=== PATIENT | female | born 1950 | race African-American/Black ===

== ENCOUNTER 2018-12-22 14:17 | Inpatient (IN) | payer OTHER ==
--- NOTE | 2018-12-22 14:38 | R.PREADM ---
SCREENING DATE AND TIME 12/21/2018 14:25 (SULFUR CHLORIDE OPERATOR) ANTICIPATED REHAB ADMISSION DATE 12/23/2018 REFERRING FACILITY [facility] REFERRAL DATE AND TIME 12/21/2018 14:25 (SULFUR CHLORIDE OPERATOR) ACUTE ADMIT DATE 12/19/2018 Previous Rehabilitation(s): No. REFERRING PHYSICIAN David Christine REHAB FACILITY [facility] CLINICAL LIAISON Freddie Lance PHYSICIAN REVIEWER Dr. Jesse Martinez M.D. MR# [id number] [facility]# [id number] NAME GRCAIE VALADEZ AD[address]ESS [address] [facility] [address] DATE OF 1950 AGE 68 SSN# [id number] GENDER female MARITAL STATUS RACE black ADMIT FROM 02 - [facility] PRE-HOSPITAL LIVING SETTING 01 - Home (private home/apt. board/care, assisted living, retirement, transitional living) HOME TYPE AND DETAILS Type of home: single family house # of levels in the residence: 1 # of steps to enter the residence: 0 # of steps within the residence: 0 PRE-HOSPITAL LIVING WITH Family/Relatives FAMILY SUPPORT Yes PRIMARY FAMILY CONTACT NAME Yvette Valadez PRIMARY FAMILY CONTACT PHONE PRIMARY FAMILY CONTACT RELATIONSHIP Daughter PHONE PRIMARY FAMILY CONTACT ON ADM.? no IS PRIMARY FAMILY CONTACT AUTH. REP.? no 1ST EMERGENCY CONTACT Yvette Valadez 1ST CONTACT PHONE 1ST CONTACT RELATIONSHIP Daughter PHONE 1ST CONTACT ON ADM. no IS 1ST CONTACT AUTH. REP.? no PHONE 2ND CONTACT ON ADM.? no PATIENT EMPLOYMENT STATUS Retired (for age) PATIENT EMPLOYER No Employer PAYOR INFORMATION: 1ST PAYOR NAME MEDICARE 1ST PAYOR PHONE [phone] 1ST PAYOR INJURY/ILLNESS DUE TO ACCIDENT? No ANOTHER CONSTITUTION PARTY RESPONSIBLE? 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 is a 68 yo Right-handed black female. On 12/19/2018 Pt. presented to [facility] with sudden onset of left-side weakness. On 12/19/2018 she was admitted to [facility] with diagnosis Acute to subacute infarct Right Lenti form Nucleus and Adjacent Caudate. Her impairment category is Stroke 01 - Left Body (Right Brain) (01.1). Pre-morbidly, Pt. was independent/mod-I in Locomotion, Safety Awareness, Balance, Social Cognition, T ransfers Control, Sphincter Control, Self-Care, and Endurance; and she had good Balance, Endurance, L ocomotion, Transfers Control, Communication, and Social Cognition. Currently, she has deficits of Locomotion, Safety Awareness, Balance, Transfers Control, Self-Care, a nd Communication. Pt. is now referred to [facility] for acute in-patient rehabilitation in order to maximize patient's functional independence in activities of daily living, strength, ROM, and mobi lity. Patient has realistic goal of being discharged at assistance level 6-Erica to reside at Home with Fam elis/Relatives. Gracie Valadez is a 68 year old female that lives with her sister in a 1 [address] home. She was independent with ADLs and self care. On 12/19/2018, patient had a fall and was found on the ground by her daughter. Patient was feeling some weakness on her left side and stated she was having difficulty moving it but refused to go to the hospital. The next day her symptoms lingered and was admitted to [facility] and treated. She is now medically stable but in need of 24-hour nursing, doctor supervision and oversite while receivi ng active and ongoing intensive (PT, reasonably expected to participate in 3hours of therapy a day/15 hours per week and receive care with an intensive interdisciplinary approach. PAST MEDICAL HISTORY HTN History of Stroke DM II PAST SURGICAL HISTORY: N/A MEDICATION ALLERGIES: No Known Drug Allergies (NKDA) ENVIRONMENTAL ALLERGIES: None Known - Substance Allergies None Known - Other Allergies None Known CODE STATUS: Full code WEIGHT/HEIGHT/BMI: WEIGHT 180 lbs HEIGHT 5' 5" BMI 30 DIET: - Diet Type Regular - Diet - Solid Texture Pureed - Diet - Liquid Texture Thin - Tube Feed N/A REVIEW OF SYSTEMS: - Gen Alert and awake Lying in bed No apparent distress Oriented to: person, time, and place - Vital Signs Temperature: 97.7 F SBP/DBP: 149/70 Pulse: 77 Resp: 16 Vital signs stable, afebrile - CVS RRR VITAL SIGNS Temperature: 97.7 F SBP/DBP: 149/70 Pulse: 77 Resp: 16 Vital signs stable, afebrile MEDICATIONS/TREATMENT: Other- See attached MAR (Medication Administration Record) [email or web address].pdf. CURRENT SPHINCTER CONTROL: Pre-hospital bladder status: continent # of bladder accidents in the last 7 days prior to screenin Pre-hospital bowel status: continent # of bowel accidents in the last 7 days prior to screenin Last Bowel Movement Date: CURRENT LOCOMOTION STATUS: distance walked 20 feet DETAILED CURRENT FUNCTIONAL STATUS: - Bladder accident frequency: Ind - No accidents in the past 7 days - Bowel accident frequency: Ind - No accidents in the past 7 days - Walking score based on distance walked: 1(<=50ft) - Wheelchair score based on distance traveled: 0(N/A) QI SCORES: - Self-Care A. Eating 03-Partial/moderate assistance B. Oral hygiene 03-Partial/moderate assistance C. Toileting hygiene 03-Partial/moderate assistance E. Shower/bathe self 03-Partial/moderate assistance F. Upper body dressing 03-Partial/moderate assistance G. Lower body dressing 03-Partial/moderate assistance H. Putting on/taking off footwear 02-Substantial/maximal assistance - Mobility A. Roll left and right 03-Partial/moderate assistance B. Sit to lying 03-Partial/moderate assistance C. Lying to sitting on side of bed 03-Partial/moderate assistance D. Sit to stand 04-Supervision or touching assistance E. Chair/caq-it-fhsgj transfer 04-Supervision or touching assistance F. Toilet transfer 03-Partial/moderate assistance G. Car transfer 88-Not attempted due to medical condition or safety concerns I. Walk 10 feet 04-Supervision or touching assistance J. Walk 50 feet with two turns 88-Not attempted due to medical condition or safety concerns K. Walk 150 feet 88-Not attempted due to medical condition or safety concerns L. Walking 10 feet on uneven surfaces 88-Not attempted due to medical condition or safety concerns M. 1 step (curb) 88-Not attempted due to medical condition or safety concerns N. 4 steps 88-Not attempted due to medical condition or safety concerns O. 12 steps 88-Not attempted due to medical condition or safety concerns P. Picking up object 88-Not attempted due to medical condition or safety concerns R. Wheel 50 feet with two turns 88-Not attempted due to medical condition or safety concerns S. Wheel 150 feet 88-Not attempted due to medical condition or safety concerns - Bladder and Bowel Bladder continence 0-Always continent Bowel continence 0-Always continent - Endurance Fair - Balance Fair - Safety Awareness Fair CURRENT FUNC. DEFICITS: Self-Care, Mobility, Endurance, Balance, and Safety Awareness CURRENT / PREVIOUS ASSISTIVE DEVICES: 3-in-1 Commode BSC Dentures Glasses Hospital Bed Raised Toilet Rolling Walker Shower Chair Standard Walker Tub Bench Wheelchair CURRENT USE ASSISTIVE DEVICES: TEDs HISTORY OF FALLS. HAS THE PATIENT HAD TWO OR MORE FALLS IN THE PAST YEAR OR ANY FALL WITH INJURY IN T HE PAST YEAR?: Yes PRIOR SURGERY. DID THE PATIENT HAVE MAJOR SURGERY DURING THE 100 DAYS PRIOR TO ADMISSION?: No THERAPY NOTES FROM ACUTE CARE: Attached. SPECIAL NEEDS: - Safety Concerns Skin breakdown precautions needed due to skin breakdown risk PRECAUTIONS: - Weight Bearing Precaution WBAT left LE PATIENT NEEDS ACTIVE AND ONGOING THERAPEUTIC INTERVENTION OF MULTIPLE THERAPY DISCIPLINES, INCLUDING: - Occupational Therapy Cognitive Retraining. Visual Perceptual Training. - Dietary and Nutrition Adequate Nutrition. Nutritional Education. Nutritional Supplements. - Speech Therapy Cognitive Training. Dysphagia Therapy. Expressive Language Skills. Memory Strategies. Receptive Langu age Skills. Speech Intelligibility Training. PATIENT NEEDS CLOSE MEDICAL SUPERVISION BY A REHABILITATION PHYSICIAN FOR: Coordination of Treatment Team Medical and Co-Morbidity Management PATIENT REQUIRES 24X7 REHAB NURSING FOR MEDICAL AND FUNCTIONAL MGT. OF THE FOLLOWING DEFICITS: Disease Management Medication Management Patient/Family Education Providing Safe Environment PATIENT REQUIRES INTENSIVE, COORDINATED INTERDISCIPLINARY APPROACH TO REHAB: Arranging Home Equipment/Services Discharge Planning Family Intervention/Training Biomedical Engineering Technician/Case Management PATIENT REHAB POTENTIAL: Adeola VALAEDZ is able and expected to receive 3 hours of individualized therapy daily on at least 5 of ever y 7 days Adeola VALADEZ's prognosis for significant practical improvement within a reasonable period of time appears Good Expected level of measurable improvement will be of a practical value to Adeola VALADEZ's functional capacit y or adaptations to impairments Has a viable Discharge Plan Medically appropriate; condition is sufficiently stable to participate in intensive rehab program DISCHARGE PLAN: - Estimated Length of Stay (days) 17. - Consensus on plan Discharge plan has been discussed with primary caregiver. Patient/Family is in agreement with the ciarra n. Primary caregiver is in agreement with the plan. - Patient/Family Goals Return home with assistance. - Planned Living Setting Upon Discharge Home, to live with Family/Relatives. Transitional Living. RECOMMENDED CARE LEVEL: IRF RECOMMENDATION DETAILS: Recommended Admission to Comprehensive Rehabilitation Program to Increase Functional [place] SCREENER'S COMPLETENESS CONFIRMATION: - Screening Confirmation The patient data collection on this preadmission screening form is finished PHYSICIANS REVIEW AND ADMISSION DETERMINATION Admit - Based on my review of the Pre-Admission Screening results, in my medical judgment and experie nce, I concur with the findings and recommend admission to [facility], as this patient requires an IRF level of care. SIGNATURE PANEL: Clinical Liaison - [electronically] signed by Freddie Lance on 12/22/2018 at 14:29 (SULFUR CHLORIDE OPERATOR) Physician Reviewer - [electronically] signed by Dr. Jesse Martinez M.D. on 12/22/2018 at 14:38 (SULFUR CHLORIDE OPERATOR )
--- OUTSIDE RECORDS SUMMARY | 2018-12-22 20:20 | XMS REPORT ---
:1950 [facility] Address [address] [place] [id number] Care Team Providers Name Role Phone Unavailable Unavailable Unavailable Problems This patient has no known problems. Allergies, Adverse Reactions, Alerts This patient has no known allergies or adverse reactions. Medications This patient has no known medications.
[2018-12-22] MEDS ORDERED: ALBUTEROL INHALER 60 PUFF/8 GM IH PRN (21:15)
[2018-12-22] MEDS ORDERED: BENZONATATE 100 MG CAP PO PRN (21:18)
[2018-12-22] MEDS ORDERED: LORATADINE 10 MG TAB PO PRN (21:25)
[2018-12-22] MEDS ORDERED: MECLIZINE HCL 12.5 MG TAB PO PRN (21:26)
[2018-12-22] MEDS ORDERED: TRAMADOL HCL 50 MG TAB PO PRN (21:33)
[2018-12-22] MEDS: CEPHALEXIN 250 MG CAP PO SCH (23:55)
[2018-12-23] MEDS ORDERED: GLUCAGON 1 MG/VIAL IM PRN (00:29)
[2018-12-23] MEDS ORDERED: D50W 25 GM/50 ML SYRINGE/VIAL IV PRN (00:29)
[2018-12-23] MEDS: INSULIN -REGULAR HUMAN 50 UNIT/0.5 ML ML SQ SCH ×4 (06:45→19:51)
[2018-12-23 06:51] LABS: Albumin 3.2 g/dL (3.4-5.0); Magnesium 1.9 mg/dL (1.8-2.4); Potassium 3.1 mmol/L (3.5-5.1); Prealbumin 13.8 mg/dL (20-40)
[2018-12-23 06:55] LABS: Absolute Lymphocytes (CBC) 1.1 K/uL (0.7-4.9); Basophils % 0.8 % (0-1.3); Hematocrit 35.9 % (36.0-45.0); Lymphocytes % 13.5 % (15.3-44.8); MPV 9.6 fL (7.6-11.3); RBC Red Blood Cell Count 4.33 M/uL (3.86-4.86)
[2018-12-23] MEDS: CYCLOBENZAPRINE 10 MG TAB PO SCH ×3 (08:03→18:43)
[2018-12-23] MEDS: DIPYRIDAMOLE/ASPIRIN CAP ER PO SCH ×2 (08:03→18:43)
[2018-12-23] MEDS: LOSARTAN POTASSIUM 50 MG TABLET PO SCH (08:03)
[2018-12-23] MEDS: METOPROLOL TAR 50 MG TAB PO SCH (08:05)
[2018-12-23] MEDS: hydroCHLOROthiazide 12.5 MG CAP PO SCH (08:05)
[2018-12-23] MEDS: CEPHALEXIN 250 MG CAP PO SCH ×3 (08:06→18:44)
[2018-12-23] MEDS: NAPROXEN 250 MG TAB PO SCH ×2 (08:06→18:43)
[2018-12-23] MEDS: AMLODIPINE 5 MG TAB PO SCH (08:06)
[2018-12-23] MEDS ORDERED: APP TOP SCH (09:00)
[2018-12-23] MEDS ORDERED: POTASSIUM 25 MEQ EFFERV TAB PO ONE (12:01)
[2018-12-23 16:02] LABS: Urine Appearance CLEAR; Urine Bilirubin NEGATIVE (NEG); Urine Blood 2+ (NEG); Urine Color YELLOW; Urine Glucose NEGATIVE (NEG); Urine Specific Gravity 1.025 (1.005-1.030)
[2018-12-23 16:03] LABS: Urine Protein TRACE (NEG); Urine Urobilinogen 0.2 mg/dL (0.2-1.0); Urine pH 5.5 (5.0-7.0)
[2018-12-23 16:04] LABS: Calcium Oxalate Crystals- Ur MANY (NONE SEEN); Urine Bacteria <20 /HPF (<20); Urine Culture Reflex Order NOT NEEDED; Urine RBC <5 /HPF (NONE SEEN)
--- NOTE | 2018-12-23 18:01 | R.HP ---
FACILITY: [facility] ENCOUNTER DATE AND TIME: 12/23/2018 14:35 (SUPERVISOR LABORATORY ANIMAL FACILITY) MR#: [id number] NAME GRACIE VALADEZ ADDRESS: [address] [place] [address] [address] PHONE: DATE OF : 1950 AGE: 68 SSN# [id number] GENDER: Female DEXTERITY Right-handed MARITAL STATUS RACE Black PRE-HOSPITAL LIVING SETTING 01 - Home (private home/apt. board/care, assisted living, mcc, transitional living) PRE-HOSPITAL LIVING WITH Family/Relatives ENCOUNTER PHYSICIAN: Dr. Jesse Martinez M.D. 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 is a 68 yo Right-handed black female. On 12/19/2018 Pt. presented to [facility] with sudden onset of left-side weakness. On 12/19/2018 she was admitted to [facility] with diagnosis Acute to subacute infarct Right Lenti form Nucleus and Adjacent Caudate. Her impairment category is Stroke 01 - Left Body (Right Brain) (01.1). Pre-morbidly, Pt. was independent/mod-I in Locomotion, Safety Awareness, Balance, Social Cognition, T ransfers Control, Sphincter Control, Self-Care, and Endurance; and she had good Balance, Endurance, L ocomotion, Transfers Control, Communication, and Social Cognition. Currently, she has deficits of Locomotion, Safety Awareness, Balance, Transfers Control, Self-Care, a nd Communication. Pt. is now referred to [facility] for acute in-patient rehabilitation in order to maximize patient's functional independence in activities of daily living, strength, ROM, and mobi lity. Patient has realistic goal of being discharged at assistance level 6-Erica to reside at Home with Fam elis/Relatives. Gracie Valadez is a 68 year old female that lives with her sister in a [address] home. She was independent with ADLs and self care. On 12/19/2018, patient had a fall and was found on the ground by her daughter. Patient was feeling some weakness on her left side and stated she was having difficulty moving it but refused to go to the hospital. The next day her symptoms lingered and was admitted to [facility] and treated. She is now medically stable but in need of 24-hour nursing, doctor supervision and oversite while receivi ng active and ongoing intensive (PT, reasonably expected to participate in 3hours of therapy a day/15 hours per week and receive care with an intensive interdisciplinary approach. MEDICATION ALLERGIES: No Known Drug Allergies (NKDA) ENVIRONMENTAL ALLERGIES: None Known - Substance Allergies None Known - Other Allergies None Known PAST MEDICAL HISTORY: HTN History of Stroke DM II PAST SURGICAL HISTORY: N/A FAMILY HISTORY: Family history is not contributory. SOCIAL HISTORY: - Home Living Family/Relatives REVIEW OF SYSTEMS: - Gen No Chills Fatigue No Fever - Eyes No Double Vision No itchiness - ENMT Difficulty Swallowing - CVS No Chest Discomfort No Chest Pain Fatigue No Weight Gain - Resp No Cough No Shortness of Breath - GI Continent No Abdominal Pain No Constipation No Diarrhea - Continent No Kidney Pain No Painful Urination No Urinary Urgency - MSK No Joint Pain Muscle Cramps Stiffness - Skin No Itching No Rash No Suspicious Lesions - Neuro Coordination Difficulty Difficulty with Concentration No Memory Loss No Seizures Weakness - Psych No Anxiety No Depression No HIV Exposure No Persistent Infections No Seasonal Allergies - Endo No Cold/Heat Intolerance No Excessive Hunger No Excessive Thirst No Excessive Urination PHYSICAL EXAM - Gen Alert and awake Lying in bed No apparent distress Oriented to: person, time, and place - Skin No skin breakdown. Normacephalic - Eyes No abnormalities - ENMT No abnormalities - Neck No abnormalities - CVS RRR - Chest Clear - Resp No wheezing - Abd + bowel sounds - GI Non distended Deferred - No abnormalities - Ext No significant edema - MSK 3+/5 weakness in left upper and 4+/5 in left lower extremity - Neuro 3+/5 weakness in left upper and 4+/5 in left lower extremity - Psych No abnormalities VITAL SIGNS Temperature: 97.7 F SBP/DBP: 149/70 Pulse: 77 Resp: 16 NURSING: - Shower allowing shower - Bladder care per protocol - Skin care per protocol PRECAUTIONS: - Weight Bearing Precaution WBAT left LE ACTIVITIES OOB only with supervision QI SCORES: - Self-Care A. Eating 03-Partial/moderate assistance B. Oral hygiene 03-Partial/moderate assistance C. Toileting hygiene 03-Partial/moderate assistance E. Shower/bathe self 03-Partial/moderate assistance F. Upper body dressing 03-Partial/moderate assistance G. Lower body dressing 03-Partial/moderate assistance H. Putting on/taking off footwear 02-Substantial/maximal assistance - Mobility A. Roll left and right 03-Partial/moderate assistance B. Sit to lying 03-Partial/moderate assistance C. Lying to sitting on side of bed 03-Partial/moderate assistance D. Sit to stand 04-Supervision or touching assistance E. Chair/dno-pz-fleym transfer 04-Supervision or touching assistance F. Toilet transfer 03-Partial/moderate assistance G. Car transfer 88-Not attempted due to medical condition or safety concerns I. Walk 10 feet 04-Supervision or touching assistance J. Walk 50 feet with two turns 88-Not attempted due to medical condition or safety concerns K. Walk 150 feet 88-Not attempted due to medical condition or safety concerns L. Walking 10 feet on uneven surfaces 88-Not attempted due to medical condition or safety concerns M. 1 step (curb) 88-Not attempted due to medical condition or safety concerns N. 4 steps 88-Not attempted due to medical condition or safety concerns O. 12 steps 88-Not attempted due to medical condition or safety concerns P. Picking up object 88-Not attempted due to medical condition or safety concerns R. Wheel 50 feet with two turns 88-Not attempted due to medical condition or safety concerns S. Wheel 150 feet 88-Not attempted due to medical condition or safety concerns - Bladder and Bowel Bladder continence 0-Always continent Bowel continence 0-Always continent - Endurance Fair - Balance Fair - Safety Awareness Fair CURRENT FUNC. DEFICITS: Self-Care, Mobility, Endurance, Balance, and Safety Awareness MEDICATIONS: - Other See attached MAR (Medication Administration Record) [email or web address].pdf ASSESSMENT: Pt. is a 68 yo Right-handed black female.On 12/19/2018 Pt. presented to [facility] with sudden on set of left-side weakness.On 12/19/2018 she was admitted to [facility] with diagnosis Acute to julian bacute infarct Right Lentiform Nucleus and Adjacent Caudate.Her impairment category is Stroke 01 - L eft Body (Right Brain) (01.1).Pre-morbidly, Pt. was independent/mod-I in Locomotion, Safety Awareness , Balance, Social Cognition, Transfers Control, Sphincter Control, Self-Care, and Endurance; and she had good Balance, Endurance, Locomotion, Transfers Control, Communication, and Social Cognition.Curre ntly, she has deficits of Locomotion, Safety Awareness, Balance, Transfers Control, Self-Care, and Co mmunication.Pt. is now referred to [facility] for acute in-patient rehabilitat ion in order to maximize patient's functional independence in activities of daily living, strength, R OM, and mobility.- Rehab Goal Patient has realistic goal of being discharged at assistance level 6-Erica to reside at Home with Fam elis/Relatives. Gracie Valadez is a 68 year old female that lives with her sister in a [address] home. She was independent with ADLs and self care. On 12/19/2018, patient had a fall and was found on the ground by her daughter. Patient was feeling some weakness on her left side and stated she was having difficulty moving it but refused to go to the hospital. The next day her symptoms lingered and was admitted to [facility] and treated. She is now medically stable but in need of 24-hour nursing, doctor supervision and oversite while receivi ng active and ongoing intensive (PT, reasonably expected to participate in 3hours of therapy a day/15 hours per week and receive care with an intensive interdisciplinary approach.REHAB PLAN: for Dementia, TBI, Stroke, or others - Physical Therapy Gait dysfunction - to improve, our physical therapists will perform initial evaluation of pt's status upon admission and devise an individualized program for Gait Training, and Wheel Chair mobility Inability to transfer - to improve, our physical therapists will perform initial evaluation of pt's s tatus upon admission and devise an individualized program for Bed mobility Need for home safety evaluation - to improve, our physical therapists will perform initial evaluation of pt's status upon admission and devise an individualized program for Home Evaluation Need in caregiver upon discharge - to improve, our physical therapists will perform initial evaluatio n of pt's status upon admission and devise an individualized program for Caregiver Training Edema - to improve, our physical therapists will perform initial evaluation of pt's status upon admi ssion and devise an individualized program for Elevation Training, and Lymphedema Therapy New precaution - to improve, our physical therapists will perform initial evaluation of pt's status u chago admission and devise an individualized program for Patient precaution education Poor balance - to improve, our physical therapists will perform initial evaluation of pt's status upo n admission and devise an individualized program for Balance Training Weakness - to improve, our physical therapists will perform initial evaluation of pt's status upon ad mission and devise an individualized program for Aquatic Therapy, Neuromuscular Reeducation, and Stre ngthening Achieving independence - to improve, our physical therapists will perform initial evaluation of pt's status upon admission and devise an individualized program for Community Reintegration Activities - Occupational Therapy ADL deficits - to improve, our occupation therapists will perform initial evaluation of pt's status u chago admission and devise an individualized program for Bathing, Bed mobility, Community Reintegration , Cooking, Dressing, Eating, Fine Motor Skills, Grooming, Homemaking, Kitchen Mobility, Laundry, Kassy ent Education, Safety Awareness, Splinting - Positioning, Transfers(Toilet, Tub, Shower), and Wheel C hair Management Need for health care recruiter - to improve, our occupation therapists will perform initial evaluation of pt's s tatus upon admission and devise an individualized program for Caregiver Training Weakness - to improve, our occupation therapists will perform initial evaluation of pt's status upon admission and devise an individualized program for Aquatic Therapy, Balance, Endurance, UE ROM, and U E strengthening MEDICAL PLAN: - Diet Type Start Regular - Diet - Liquid Texture Start Thin - Tube Feed Start N/A - Bladder care per protocol - Weight Bearing Precaution WBAT left LE - Skin care per protocol - Other See attached MAR (Medication Administration Record) See attached MAR (Medication Administration Record) [email or web address].pdf - Diet - Solid Texture Start Regular Start Pureed - Shower shower DISCHARGE PLAN: - Estimated Length of Stay (days) 17. - Consensus on plan Discharge plan has been discussed with primary caregiver. Patient/Family is in agreement with the ciarra n. Primary caregiver is in agreement with the plan. - Patient/Family Goals Return home with assistance. - Planned Living Setting Upon Discharge Home, to live with Family/Relatives. Transitional Living. SIGNATURE PANEL: ([facility]PER[facility] [employer]AL FACILITY)
--- NOTE | 2018-12-23 18:02 | PAPE ---
PATIENT: [facility] MR# [id number] REFERRING DOCTOR irina Christine EVALUATION DATE AND TIME 12/23/2018 14:36 (FORMING ACID DUMPER) NAME GRACIE GRIJALVA DATE OF 1950 AGE 68 PHONE SSN# [id number] GENDER female EVALUATING PHYSICIAN Dr. Jesse Martinez M.D. 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 PATIENT NEEDS CLOSE MEDICAL SUPERVISION BY A REHABILITATION PHYSICIAN FOR: Coordination of Treatment Team Medical and Co-Morbidity Management PATIENT REQUIRES 24X7 REHAB NURSING FOR MEDICAL AND FUNCTIONAL MGT. OF THE FOLLOWING DEFICITS: Disease Management Medication Management Patient/Family Education Providing Safe Environment PATIENT REQUIRES INTENSIVE, COORDINATED INTERDISCIPLINARY APPROACH TO REHAB: Arranging Home Equipment/Services Discharge Planning Family Intervention/Training Forger Helper/Case Management LIST OF IDENTIFIED AND POTENTIAL PROBLEMS: Alteration in leisure activities Bladder, Incontinence Bowel, Incontinence Infection, Actual or Potential Mobility Impaired Pain, Alteration in Comfort Self Care Deficit Skin Integrity, Actual or Potential Urinary Tract Infection (UTI), Actual or Potential PATIENT COULD BE AT RISK FOR COMPLICATIONS FROM ADVERSE MEDICAL CONDITIONS DUE TO HIS/HER COMORBIDITI ES AND THE RIGORS OF THE INTENSIVE REHABILLITATION PROGRAM. METHODS OR INTERVENTIONS TO AVOID COMPLIC ATIONS INCLUDE: - Bleeding Stroke patients assessed for lethargy or change in status. - Infection Clinical staff to assess and manage the signs and symptoms of infection including fever, redness, war mth, etc. - Urinary Tract Infection - Aspiration Clinical staff will assess and manage coughing, drooling, congestion. - Falls Patient will be evaluated for Fall Precautions and will be placed on Fall Precautions as indicated pe r protocol. - Skin Breakdown Nursing will assess skin daily using assessment tool and will place on Skin Breakdown Precautions as indicated per protocol. - Pain Clinical staff may employ non-medication methods such as massage, distraction, decrease stimulus, etc . as needed. Clinical staff will assess patient's pain level every shift per protocol to assess and e nsure pain management effectiveness. Medications will be given and the pain level re-assessed. PRELIMINARY PLAN OF CARE: - Physical Therapy Patient needs Physical Therapy for a daily minimum of 1.5 hours at least 5 out of 7 days, to improve: Mobility, Strengthening, Transfers, Stretching, ROM, Endurance, Ability to manage stairs, Gait, and Balance. - Speech Therapy Patient needs Speech Therapy for a daily minimum of 0.5 hours at least 5 out of 7 days, to improve: S wallowing, Cognition, Language Skills, and Compensatory Strategies. - Rehabilitation Nursing Patient requires 24x7 Rehabilitation Nursing for: Pain Issues, Identifying and preventing risk factor s, Monitoring and reporting current medical conditions, Assisting with ambulation and transfer, Jostin ting with all ADL-s, Teaching patients about disease process and medications, Family teaching, Provid ing safe environment, Bowel and Bladder Issues, Skin Integrity, and Medication Management. Patient needs Forger Helper and/or Case Management for: Discharge Planning, Arranging Home Equipmen t or Services, and Family Interventions. - Dietary and Nutrition Services Patient needs Dietary and Nutrition Services for: Adequate Nutrition, Nutritional Supplements, and Nu tritional Education. - Occupational Therapy Patient needs Occupational Therapy for a daily minimum of 1.5 hours at least 5 out of 7 days, to impr ove Activities of Daily Living, including: Eating, Grooming, Bathing, Dressing, Toileting, Toilet Tra nsfers, Community Reintegration, Higher functional activities, Adaptive Equipment, Splinting, Househo ld Tasks, and Other activities as determined. QI SCORES: - Self-Care A. Eating 03-Partial/moderate assistance B. Oral hygiene 03-Partial/moderate assistance C. Toileting hygiene 03-Partial/moderate assistance E. Shower/bathe self 03-Partial/moderate assistance F. Upper body dressing 03-Partial/moderate assistance G. Lower body dressing 03-Partial/moderate assistance H. Putting on/taking off footwear 02-Substantial/maximal assistance - Mobility A. Roll left and right 03-Partial/moderate assistance B. Sit to lying 03-Partial/moderate assistance C. Lying to sitting on side of bed 03-Partial/moderate assistance D. Sit to stand 04-Supervision or touching assistance E. Chair/zft-lb-ijlkj transfer 04-Supervision or touching assistance F. Toilet transfer 03-Partial/moderate assistance G. Car transfer 88-Not attempted due to medical condition or safety concerns I. Walk 10 feet 04-Supervision or touching assistance J. Walk 50 feet with two turns 88-Not attempted due to medical condition or safety concerns K. Walk 150 feet 88-Not attempted due to medical condition or safety concerns L. Walking 10 feet on uneven surfaces 88-Not attempted due to medical condition or safety concerns M. 1 step (curb) 88-Not attempted due to medical condition or safety concerns N. 4 steps 88-Not attempted due to medical condition or safety concerns O. 12 steps 88-Not attempted due to medical condition or safety concerns P. Picking up object 88-Not attempted due to medical condition or safety concerns R. Wheel 50 feet with two turns 88-Not attempted due to medical condition or safety concerns S. Wheel 150 feet 88-Not attempted due to medical condition or safety concerns - Bladder and Bowel Bladder continence 0-Always continent Bowel continence 0-Always continent - Endurance Fair - Balance Fair - Safety Awareness Fair POTENTIAL FUNCTIONAL GOALS FOR PATIENT TO ACHIEVE BY DISCHARGE: - Safety Precaution Patient will remain free from falls or injury at time of discharge. - Bed Mobility Patient will perform bed mobility at 4-Kiersten level of assistance. - Transfers Patient will complete transfers from bed to chair at 4-Kiersten level of assistance. - Mobility Patient will ambulate 150 ft with 4-Kiersten level of assistance with RW. PATIENT REHAB POTENTIAL Adeola GRIJALVA is able and expected to receive 3 hours of individualized therapy daily on at least 5 of ever y 7 days Adeola MARs prognosis for significant practical improvement within a reasonable period of time appears Good Expected level of measurable improvement will be of a practical value to Adeola GRIJALVA's functional capacit y or adaptations to impairments Has a viable Discharge Plan Medically appropriate; condition is sufficiently stable to participate in intensive rehab program DISCHARGE PLAN: - Estimated Length of Stay (days) 17. - Consensus on plan Discharge plan has been discussed with primary caregiver. Patient/Family is in agreement with the ciarra n. Primary caregiver is in agreement with the plan. - Patient/Family Goals Return home with assistance. - Planned Living Setting Upon Discharge Home, to live with Family/Relatives. Transitional Living. CONCLUSION ON REHABILITATION NECESSITY: I have evaluated patient's pre-admission functional status and, comparing it to the patient's post-ad mission functional status now, I conclude that the pre-admission assessment was accurate. Patient's c ondition on admission supports the medical necessity of admission to IRF. It is safe to proceed with patient's therapy program. SIGNATURE PANEL: (FORMING ACID DUMPER)
[2018-12-23] MEDS: POTASSIUM 25 MEQ EFFERV TAB PO SCH (18:42)
[2018-12-23] MEDS: ATORVASTATIN 80 MG TAB PO SCH (18:43)
[2018-12-24 06:49] LABS: Potassium 3.4 mmol/L (3.5-5.1)
[2018-12-24] MEDS: INSULIN -REGULAR HUMAN 50 UNIT/0.5 ML ML SQ SCH ×4 (07:30→19:32)
[2018-12-24] MEDS: POTASSIUM 25 MEQ EFFERV TAB PO SCH ×2 (08:00→19:34)
[2018-12-24] MEDS: hydroCHLOROthiazide 12.5 MG CAP PO SCH (08:23)
[2018-12-24] MEDS: NAPROXEN 250 MG TAB PO SCH ×2 (08:24→19:34)
[2018-12-24] MEDS: DIPYRIDAMOLE/ASPIRIN CAP ER PO SCH ×2 (08:29→19:34)
[2018-12-24] MEDS: CEPHALEXIN 250 MG CAP PO SCH ×3 (08:29→19:34)
[2018-12-24] MEDS: CYCLOBENZAPRINE 10 MG TAB PO SCH ×3 (08:36→19:34)
[2018-12-24] MEDS: METOPROLOL TAR 50 MG TAB PO SCH (09:27)
--- NOTE | 2018-12-24 10:48 | RAD REPORT ---
EXAM DESCRIPTION: RAD - Chest Single View - 12/24/2018 10:34 am CLINICAL HISTORY: Wet cough, aspiration pneumonia COMPARISON: None. TECHNIQUE: AP portable chest image was obtained 1008 hours . FINDINGS: Lung volumes are low. No right lung field abnormality identified. There is some patchy opa cification in the left base. Assessment is limited due to portable technique and shallow inspiration. Early left lung base pneumonia is suspected. Heart and vasculature are normal. No measurable pleural effusion and no pneumothorax. No acute bony abnormality seen. No acute aortic findings suspected. IMPRESSION: Exam is limited by portable technique and shallow inspiration. Left lung base pneumonia is suspected. Finding can be monitored with repeat imaging with best attempts at optimal inspiratory effort by the patient. If the patient cannot obtain good inspiratory effort, CT imaging would be an alternative tonny ns to evaluate and monitoring lung parenchyma.
[2018-12-24] MEDS: AMLODIPINE 5 MG TAB PO SCH (12:24)
[2018-12-24] MEDS: LOSARTAN POTASSIUM 50 MG TABLET PO SCH (12:25)
[2018-12-24] MEDS: ATORVASTATIN 80 MG TAB PO SCH (19:34)
[2018-12-25] MEDS: METOPROLOL TAR 25 MG TAB PO SCH (05:04)
[2018-12-25] MEDS: INSULIN -REGULAR HUMAN 50 UNIT/0.5 ML ML SQ SCH ×4 (07:13→20:55)
[2018-12-25] MEDS: POTASSIUM 25 MEQ EFFERV TAB PO SCH ×2 (08:10→20:54)
[2018-12-25] MEDS: CEPHALEXIN 250 MG CAP PO SCH (08:11)
[2018-12-25] MEDS: AMLODIPINE 5 MG TAB PO SCH (08:11)
[2018-12-25] MEDS: DIPYRIDAMOLE/ASPIRIN CAP ER PO SCH ×2 (08:12→20:54)
[2018-12-25] MEDS: NAPROXEN 250 MG TAB PO SCH ×2 (08:12→20:54)
[2018-12-25] MEDS: LOSARTAN POTASSIUM 50 MG TABLET PO SCH (08:12)
[2018-12-25] MEDS: hydroCHLOROthiazide 12.5 MG CAP PO SCH (08:13)
[2018-12-25] MEDS: CYCLOBENZAPRINE 10 MG TAB PO SCH ×3 (08:13→20:54)
--- NOTE | 2018-12-25 13:17 | FAST ---
ENCOUNTER DATE AND TIME: 12/25/2018 08:00 (MINT MACHINE OPERATOR) NAME GRACIE GRIJALVA DATE OF : 1950 DATE OF ADMISSION: 12/23/2018 14:36 (MINT MACHINE OPERATOR) PHONE: AGE: 68 N# [id number] GENDER: Female ENCOUNTER PHYSICIAN: Dr. Jesse Martinez M.D. 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 EATING: Not assessed/no information CODE: - ORAL HYGIENE: Not assessed/no information CODE: - TOILETING HYGIENE: Not assessed/no information CODE: - BATHING: SHOWER/BATHE SELF - STEP 1: Does the patient complete the activity by him/herself with no assistance (physical, verbal/nonverbal cueing, setup/clean-up)? No. SHOWER/BATHE SELF - STEP 2: Does the patient need only setup/clean-up assistance from one helper? No. SHOWER/BATHE SELF - STEP 3: Does the patient need only verbal/nonverbal cueing or touching/steadying/contact guard assistance fro m one helper? Yes. 1. [id number] ADMISSION PERFORMANCE: Supervision or touching assistance CODE: 04 DRESSING - UPPER BODY: DRESSING - UPPER BODY - STEP 1: Does the patient complete the activity by him/herself with no assistance (physical, verbal/nonverbal cueing, setup/clean-up)? No. DRESSING - UPPER BODY - STEP 2: Does the patient need only setup/clean-up assistance from one helper? No. DRESSING - UPPER BODY - STEP 3: Does the patient need only verbal/nonverbal cueing or touching/steadying/contact guard assistance fro m one helper? Yes. 1. [id number] ADMISSION PERFORMANCE: Supervision or touching assistance CODE: 04 DRESSING - LOWER BODY: DRESSING - LOWER BODY - STEP 1: Does the patient complete the activity by him/herself with no assistance (physical, verbal/nonverbal cueing, setup/clean-up)? No. DRESSING - LOWER BODY - STEP 2: Does the patient need only setup/clean-up assistance from one helper? No. DRESSING - LOWER BODY - STEP 3: Does the patient need only verbal/nonverbal cueing or touching/steadying/contact guard assistance fro m one helper? No. DRESSING - LOWER BODY - STEP 4: Does the patient need physical assistance - for example lifting or trunk support from one helper - wi th the helper providing less than half of the effort? No. DRESSING - LOWER BODY - STEP 5: Does the patient need physical assistance - for example lifting or trunk support from one helper - wi th the helper providing more than half of the effort? Yes. 1. [id number] ADMISSION PERFORMANCE: Substantial/maximal assistance CODE: 02 PUTTING ON/TAKING OFF FOOTWEAR: FOOTWEAR - STEP 1: Does the patient complete the activity by him/herself with no assistance (physical, verbal/nonverbal cueing, setup/clean-up)? No. FOOTWEAR - STEP 2: Does the patient need only setup/clean-up assistance from one helper? No. FOOTWEAR - STEP 3: Does the patient need only verbal/nonverbal cueing or touching/steadying/contact guard assistance fro m one helper? No. FOOTWEAR - STEP 4: Does the patient need physical assistance - for example lifting or trunk support from one helper - wi th the helper providing less than half of the effort? No. FOOTWEAR - STEP 5: Does the patient need physical assistance - for example lifting or trunk support from one helper - wi th the helper providing more than half of the effort? Yes. 1. [id number] ADMISSION PERFORMANCE: Substantial/maximal assistance CODE: 02 DOES THE PATIENT USE A WHEELCHAIR/SCOOTER? CODE: EXPR INDICATE THE TYPE OF WHEELCHAIR/SCOOTER USED: CODE: EXPR INDICATE THE TYPE OF WHEELCHAIR/SCOOTER USED: CODE: EXPR BLADDER AND BOWEL: CODE: EXPR CODE: EXPR SIGNATURE PANEL: The following modified sections: 1. [id number] Admission Performance, 1. [id number] Admission Performance, 1. [id number] Admission Performance, 1. [id number] Admission Performance, 1. [id number] Admission Performance were [electronically] signed by Rebeka Dubose OT on TueDec 25 2018 13:16:30 GMT-0600 ([place] Time)
--- NOTE | 2018-12-25 14:34 | FAST ---
SHIFT START DATE/TIME: 12/25/2018 07:00 (ANALYSIS EVALUATOR) SHIFT END DATE/TIME: 12/25/2018 19:00 (ANALYSIS EVALUATOR) NAME GRACIE GRIJALVA DATE OF : 1950 DATE OF ADMISSION: 12/23/2018 14:36 (ANALYSIS EVALUATOR) PHONE: AGE: 68 N# [id number] GENDER: Female ENCOUNTER PHYSICIAN: Dr. Jesse Martinez M.D. 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 EATING: EATING - STEP 1: Does the patient complete the activity by him/herself with no assistance (physical, verbal/nonverbal cueing, setup/clean-up)? No. EATING - STEP 2: Does the patient need only setup/clean-up assistance from one helper? Yes. 1. [id number] ADMISSION PERFORMANCE: Setup or clean-up assistance CODE: 05 ORAL HYGIENE: Not assessed/no information CODE: - TOILETING HYGIENE: TOILETING HYGIENE - STEP 1: Does the patient complete the activity by him/herself with no assistance (physical, verbal/nonverbal cueing, setup/clean-up)? No. TOILETING HYGIENE - STEP 2: Does the patient need only setup/clean-up assistance from one helper? No. TOILETING HYGIENE - STEP 3: Does the patient need only verbal/nonverbal cueing or touching/steadying/contact guard assistance fro m one helper? No. TOILETING HYGIENE - STEP 4: Does the patient need physical assistance - for example lifting or trunk support from one helper - wi th the helper providing less than half of the effort? Yes. 1. [id number] ADMISSION PERFORMANCE: Partial/moderate assistance CODE: 03 BATHING: Not assessed/no information CODE: - DRESSING - UPPER BODY: DRESSING - UPPER BODY - STEP 1: Does the patient complete the activity by him/herself with no assistance (physical, verbal/nonverbal cueing, setup/clean-up)? No. DRESSING - UPPER BODY - STEP 2: Does the patient need only setup/clean-up assistance from one helper? No. DRESSING - UPPER BODY - STEP 3: Does the patient need only verbal/nonverbal cueing or touching/steadying/contact guard assistance fro m one helper? Yes. 1. [id number] ADMISSION PERFORMANCE: Supervision or touching assistance CODE: 04 DRESSING - LOWER BODY: DRESSING - LOWER BODY - STEP 1: Does the patient complete the activity by him/herself with no assistance (physical, verbal/nonverbal cueing, setup/clean-up)? No. DRESSING - LOWER BODY - STEP 2: Does the patient need only setup/clean-up assistance from one helper? No. DRESSING - LOWER BODY - STEP 3: Does the patient need only verbal/nonverbal cueing or touching/steadying/contact guard assistance fro m one helper? Yes. 1. [id number] ADMISSION PERFORMANCE: Supervision or touching assistance CODE: 04 PUTTING ON/TAKING OFF FOOTWEAR: FOOTWEAR - STEP 1: Does the patient complete the activity by him/herself with no assistance (physical, verbal/nonverbal cueing, setup/clean-up)? No. FOOTWEAR - STEP 2: Does the patient need only setup/clean-up assistance from one helper? No. FOOTWEAR - STEP 3: Does the patient need only verbal/nonverbal cueing or touching/steadying/contact guard assistance fro m one helper? No. FOOTWEAR - STEP 4: Does the patient need physical assistance - for example lifting or trunk support from one helper - wi th the helper providing less than half of the effort? No. FOOTWEAR - STEP 5: Does the patient need physical assistance - for example lifting or trunk support from one helper - wi th the helper providing more than half of the effort? Yes. 1. [id number] ADMISSION PERFORMANCE: Substantial/maximal assistance CODE: 02 ROLL LEFT AND RIGHT: ROLL LEFT AND RIGHT - STEP 1: Does the patient complete the activity by him/herself with no assistance (physical, verbal/nonverbal cueing, setup/clean-up)? No. ROLL LEFT AND RIGHT - STEP 2: Does the patient need only setup/clean-up assistance from one helper? No. ROLL LEFT AND RIGHT - STEP 3: Does the patient need only verbal/nonverbal cueing or touching/steadying/contact guard assistance fro m one helper? Yes. 1. [id number] ADMISSION PERFORMANCE: Supervision or touching assistance CODE: 04 SIT TO LYING: SIT TO LYING - STEP 1: Does the patient complete the activity by him/herself with no assistance (physical, verbal/nonverbal cueing, setup/clean-up)? No. SIT TO LYING - STEP 2: Does the patient need only setup/clean-up assistance from one helper? No. SIT TO LYING - STEP 3: Does the patient need only verbal/nonverbal cueing or touching/steadying/contact guard assistance fro m one helper? Yes. 1. [id number] ADMISSION PERFORMANCE: Supervision or touching assistance CODE: 04 LYING TO SITTING: LYING TO SITTING ON SIDE OF BED - STEP 1: Does the patient complete the activity by him/herself with no assistance (physical, verbal/nonverbal cueing, setup/clean-up)? No. LYING TO SITTING ON SIDE OF BED - STEP 2: Does the patient need only setup/clean-up assistance from one helper? No. LYING TO SITTING ON SIDE OF BED - STEP 3: Does the patient need only verbal/nonverbal cueing or touching/steadying/contact guard assistance fro m one helper? Yes. 1. [id number] ADMISSION PERFORMANCE: Supervision or touching assistance CODE: 04 SIT TO STAND: SIT TO STAND - STEP 1: Does the patient complete the activity by him/herself with no assistance (physical, verbal/nonverbal cueing, setup/clean-up)? No. SIT TO STAND - STEP 2: Does the patient need only setup/clean-up assistance from one helper? No. SIT TO STAND - STEP 3: Does the patient need only verbal/nonverbal cueing or touching/steadying/contact guard assistance fro m one helper? No. SIT TO STAND - STEP 4: Does the patient need physical assistance - for example lifting or trunk support from one helper - wi th the helper providing less than half of the effort? Yes. 1. [id number] ADMISSION PERFORMANCE: Partial/moderate assistance CODE: 03 TRANSFERS: BED, CHAIR: CHAIR/[id number] TRANSFER - STEP 1: Does the patient complete the activity by him/herself with no assistance (physical, verbal/nonverbal cueing, setup/clean-up)? No. CHAIR/[id number] TRANSFER - STEP 2: Does the patient need only setup/clean-up assistance from one helper? No. CHAIR/[id number] TRANSFER - STEP 3: Does the patient need only verbal/nonverbal cueing or touching/steadying/contact guard assistance fro m one helper? No. CHAIR/[id number] TRANSFER - STEP 4: Does the patient need physical assistance - for example lifting or trunk support from one helper - wi th the helper providing less than half of the effort? Yes. 1. [id number] ADMISSION PERFORMANCE: Partial/moderate assistance CODE: 03 TRANSFER TOILET: TOILET TRANSFER - STEP 1: Does the patient complete the activity by him/herself with no assistance (physical, verbal/nonverbal cueing, setup/clean-up)? No. TOILET TRANSFER - STEP 2: Does the patient need only setup/clean-up assistance from one helper? No. TOILET TRANSFER - STEP 3: Does the patient need only verbal/nonverbal cueing or touching/steadying/contact guard assistance fro m one helper? No. TOILET TRANSFER - STEP 4: Does the patient need physical assistance - for example lifting or trunk support from one helper - wi th the helper providing less than half of the effort? Yes. 1. [id number] ADMISSION PERFORMANCE: Partial/moderate assistance CODE: 03 TRANSFERS: CAR: Not assessed/no information CODE: - WALK 10 FEET: Not assessed/no information CODE: - 1 STEP (CURB): Not assessed/no information CODE: - PICKING UP OBJECT: Not assessed/no information CODE: - DOES THE PATIENT USE A WHEELCHAIR/SCOOTER? CODE: EXPR WHEEL 50 FEET WITH TWO TURNS: Not assessed/no information CODE: - INDICATE THE TYPE OF WHEELCHAIR/SCOOTER USED: RR1. INDICATE THE TYPE OF WHEELCHAIR/SCOOTER USED.: Manual CODE: 1 WHEEL 150 FEET: Not assessed/no information CODE: - INDICATE THE TYPE OF WHEELCHAIR/SCOOTER USED: SS1. INDICATE THE TYPE OF WHEELCHAIR/SCOOTER USED.: Manual CODE: 1 BLADDER AND BOWEL: H350. BLADDER CONTINENCE (3-DAY ASSESSMENT PERIOD): Incontinent daily (at least once a day) CODE: 3 H400. BOWEL CONTINENCE (3-DAY ASSESSMENT PERIOD): Always incontinent (no episodes of continent bowel movements) CODE: 3 SIGNATURE PANEL: The following modified sections: 1. [id number] Admission Performance, 1. [id number] Admission Performance, 1. [id number] Admission Performance, 1. FP8867k Admission Performance, 1. HW9239o Admission Performance, 1. QD2802m Admission Performance, 1. [id number] Admission Performance, 1. [id number] Admission Performance , 1. [id number] Admission Performance, 1. [id number] Admission Performance, 1. [id number] Admission Performanc e, 1. [id number] Admission Performance, 1. [id number] Admission Performance, 1. [id number] Admission Performan ce, RR1. Indicate the type of wheelchair/scooter used., Code, SS1. Indicate the type of wheelchair/sc ooter used., H350. Bladder Continence (3-day assessment period), H400. Bowel Continence (3-day assess ment period) were [electronically] signed by Susie Ugarte C.N.A. on TueDec 25 2018 14:32:34 T-060 0 (Central Standard Time)
--- NOTE | 2018-12-25 14:56 | RAD REPORT ---
EXAM DESCRIPTION: RAD - Barium Swallow Modified - 12/25/2018 2:45 pm CLINICAL HISTORY: Aspiration, cough, history of CVA COMPARISON: None. TECHNIQUE: The patient was given liquid, semi-solid and solid forms of barium. Lateral view fluorosc opic imaging was performed in conjunction with speech pathology service. FINDINGS: Cineloop acquisitions: 16 Fluoro time: 4 minutes 30 seconds Laryngeal Penetration: Cleared with Thin and nectar Aspiration: NO cough, with thin by Tsp and by cup sip. (at beginning and at end) Delayed swallow onset, sluggish hyolaryngeal excursion. IMPRESSION: Modified barium swallow as summarized above and fully detailed on speech pathology repor tGricelda
--- NOTE | 2018-12-25 17:45 | R.PN ---
ENCOUNTER DATE AND TIME: 12/25/2018 17:38 (KETTLE SKIMMER) NAME GRACIE VALADEZ DATE OF : 1950 DATE OF ADMISSION: 12/23/2018 14:36 (KETTLE SKIMMER) Acute to subacute infarct Right Lentiform Nucleus and Adjacent CaudateCHIEF COMPLAINT: Dysarthria, dysphagia, left hemiparesis, incoordination. SUBJECTIVE: Pt denied any Shortness of Breath. Pt denied any depression. Her chest x-ray showed likely aspiration pneumonia. Will switch from Keflex to levaquin 500 mg daily for 7 days. Labs reviewed and are stable. She is making fair overall progress with physical, occupational and spe ech therapy. VITAL SIGNS Temperature: 97.3 F SBP/DBP: 145/76 Pulse: 78 Resp: 16 MEDICATION ALLERGIES: No Known Drug Allergies (NKDA) ENVIRONMENTAL ALLERGIES: None Known - Substance Allergies None Known - Other Allergies None Known NURSING: - Shower allowing shower - Bladder care per protocol - Skin care per protocol PRECAUTIONS: - Weight Bearing Precaution WBAT left LE ACTIVITIES OOB only with supervision THERAPIES: - Occupational Therapy Cognitive Retraining. Visual Perceptual Training. - Dietary and Nutrition Adequate Nutrition. Nutritional Education. Nutritional Supplements. - Speech Therapy Cognitive Training. Dysphagia Therapy. Expressive Language Skills. Memory Strategies. Receptive Langu age Skills. Speech Intelligibility Training. PHYSICAL EXAM - Gen Alert and awake Lying in bed No apparent distress Oriented to: person, time, and place - Skin No skin breakdown. Normacephalic - Eyes No abnormalities - ENMT No abnormalities - Neck No abnormalities - CVS RRR - Chest Clear - Resp No wheezing - Abd + bowel sounds - GI Non distended Deferred - No abnormalities - Ext No significant edema - MSK 3+/5 weakness in left upper and 4+/5 in left lower extremity - Neuro 3+/5 weakness in left upper and 4+/5 in left lower extremity - Psych No abnormalities ASSESSMENT: Pt. is a 68 yo Right-handed black female.On 12/19/2018 Pt. presented to [facility] with sudden on set of left-side weakness.On 12/19/2018 she was admitted to [facility] with diagnosis Acute to julian bacute infarct Right Lentiform Nucleus and Adjacent Caudate.Her impairment category is Stroke 01 - L eft Body (Right Brain) (01.1).Pre-morbidly, Pt. was independent/mod-I in Locomotion, Safety Awareness , Balance, Social Cognition, Transfers Control, Sphincter Control, Self-Care, and Endurance; and she had good Balance, Endurance, Locomotion, Transfers Control, Communication, and Social Cognition.Darshan mosher, she has deficits of Locomotion, Safety Awareness, Balance, Transfers Control, Self-Care, and Co mmunication.Pt. is now referred to [facility] for acute in-patient rehabilitat ion in order to maximize patient's functional independence in activities of daily living, strength, R OM, and mobility.- Rehab Goal Patient has realistic goal of being discharged at assistance level 6-Erica to reside at Home with Fam elis/Relatives. MDM/PLAN: - Physical Therapy Gait dysfunction - to improve, our physical therapists will perform initial evaluation of pt's statu s upon admission and devise an individualized program for Gait Training, and Wheel Chair mobility Inability to transfer - to improve, our physical therapists will perform initial evaluation of pt's status upon admission and devise an individualized program for Bed mobility Need for home safety evaluation - to improve, our physical therapists will perform initial evaluatio n of pt's status upon admission and devise an individualized program for Home Evaluation Need in caregiver upon discharge - to improve, our physical therapists will perform initial evaluati on of pt's status upon admission and devise an individualized program for Caregiver Training Edema - to improve, our physical therapists will perform initial evaluation of pt's status upon admis jo and devise an individualized program for Elevation Training, and Lymphedema Therapy New precaution - to improve, our physical therapists will perform initial evaluation of pt's status upon admission and devise an individualized program for Patient precaution education Poor balance - to improve, our physical therapists will perform initial evaluation of pt's status up on admission and devise an individualized program for Balance Training Weakness - to improve, our physical therapists will perform initial evaluation of pt's status upon a dmission and devise an individualized program for Aquatic Therapy, Neuromuscular Reeducation, and Str engthening Achieving independence - to improve, our physical therapists will perform initial evaluation of pt's status upon admission and devise an individualized program for Community Reintegration Activities - Occupational Therapy ADL deficits - to improve, our occupation therapists will perform initial evaluation of pt's status upon admission and devise an individualized program for Bathing, Bed mobility, Community Reintegratio n, Cooking, Dressing, Eating, Fine Motor Skills, Grooming, Homemaking, Kitchen Mobility, Laundry, Pat ient Education, Safety Awareness, Splinting - Positioning, Transfers(Toilet, Tub, Shower), and Wheel Chair Management Need for director of healthcare systems - to improve, our occupation therapists will perform initial evaluation of pt's status upon admission and devise an individualized program for Caregiver Training Weakness - to improve, our occupation therapists will perform initial evaluation of pt's status upon admission and devise an individualized program for Aquatic Therapy, Balance, Endurance, UE ROM, and UE strengthening - Other See attached MAR (Medication Administration Record) [email or web address].pdf See attached MAR (Medication Administration Record) [email or web address].pdf See attached MAR (Medication Administration Record) - Diet Type Continue Regular - Diet - Liquid Texture Continue Thin - Tube Feed Continue N/A - Bladder care per protocol - Weight Bearing Precaution WBAT left LE - Skin care per protocol - Diet - Solid Texture Continue Regular Continue Pureed - Shower allowing shower for Dementia, TBI, Stroke, or others FUNCTIONAL STATUS: UPDATED AT WEEKLY TEAM CONFERENCE - Bladder Same accident frequency: 7-Ind - No accidents in the past 7 days - Bowel Same accident frequency: 7-Ind - No accidents in the past 7 days - Walking Same score based on distance walked: 1(<=50ft) - Wheelchair Same score based on distance traveled: 0(N/A) FUNCTIONAL STATUS: - Self-Care A. Eating modA B. Grooming sup C. Bathing Kiersten D. Dressing - Upper Kiersten E. Dressing - Lower Kiersten F. Toileting modA - Sphincter Control G. Bladder control sup H. Bowel control sup - Transfers Control I. Bed/Chair/Wheelchair modA J. Toilet modA K. Tub/Shower modA - Locomotion L. Walk/Wheelchair (W) modA M. Stairs maxA - Communication N. Comprehension (B) sup O. Expression (B) modA - Social Cognition P. Social Interaction sup Q. Problem Solving sup R. Memory Ind - Endurance Good - Balance Good - Safety Awareness Good QI SCORES: - Self-Care A. Eating 03-Partial/moderate assistance B. Oral hygiene 03-Partial/moderate assistance C. Toileting hygiene 03-Partial/moderate assistance E. Shower/bathe self 03-Partial/moderate assistance F. Upper body dressing 03-Partial/moderate assistance G. Lower body dressing 03-Partial/moderate assistance H. Putting on/taking off footwear 02-Substantial/maximal assistance - Mobility A. Roll left and right 03-Partial/moderate assistance B. Sit to lying 03-Partial/moderate assistance C. Lying to sitting on side of bed 03-Partial/moderate assistance D. Sit to stand 04-Supervision or touching assistance E. Chair/ytw-qy-sstiw transfer 04-Supervision or touching assistance F. Toilet transfer 03-Partial/moderate assistance G. Car transfer 88-Not attempted due to medical condition or safety concerns I. Walk 10 feet 04-Supervision or touching assistance J. Walk 50 feet with two turns 88-Not attempted due to medical condition or safety concerns K. Walk 150 feet 88-Not attempted due to medical condition or safety concerns L. Walking 10 feet on uneven surfaces 88-Not attempted due to medical condition or safety concerns M. 1 step (curb) 88-Not attempted due to medical condition or safety concerns N. 4 steps 88-Not attempted due to medical condition or safety concerns O. 12 steps 88-Not attempted due to medical condition or safety concerns P. Picking up object 88-Not attempted due to medical condition or safety concerns R. Wheel 50 feet with two turns 88-Not attempted due to medical condition or safety concerns S. Wheel 150 feet 88-Not attempted due to medical condition or safety concerns - Bladder and Bowel Bladder continence 0-Always continent Bowel continence 0-Always continent - Endurance Fair - Balance Fair - Safety Awareness Fair CURRENT FUNC. DEFICITS: Self-Care, Mobility, Endurance, Balance, and Safety Awareness SIGNATURE PANEL: (KETTLE SKIMMER)
[2018-12-25] MEDS: ATORVASTATIN 80 MG TAB PO SCH (20:54)
[2018-12-26] MEDS: METOPROLOL TAR 25 MG TAB PO SCH (05:30)
[2018-12-26] MEDS: INSULIN -REGULAR HUMAN 50 UNIT/0.5 ML ML SQ SCH ×4 (07:30→20:01)
[2018-12-26] MEDS: POTASSIUM 25 MEQ EFFERV TAB PO SCH ×2 (08:04→19:26)
[2018-12-26] MEDS: DIPYRIDAMOLE/ASPIRIN CAP ER PO SCH ×2 (08:04→19:26)
[2018-12-26] MEDS: CYCLOBENZAPRINE 10 MG TAB PO SCH ×3 (08:05→20:01)
[2018-12-26] MEDS: hydroCHLOROthiazide 12.5 MG CAP PO SCH (08:05)
[2018-12-26] MEDS: levoFLOXacin 500 MG TAB PO SCH (08:05)
[2018-12-26] MEDS: NAPROXEN 250 MG TAB PO SCH ×2 (08:06→19:26)
[2018-12-26] MEDS: AMLODIPINE 5 MG TAB PO SCH (08:08)
[2018-12-26] MEDS: LOSARTAN POTASSIUM 50 MG TABLET PO SCH (08:10)
--- NOTE | 2018-12-26 16:21 | FAST ---
SHIFT START DATE/TIME: 12/26/2018 07:00 (RELATIONS MGR) SHIFT END DATE/TIME: 12/26/2018 19:00 (RELATIONS MGR) NAME GRACIE GRIJALVA DATE OF : 1950 DATE OF ADMISSION: 12/23/2018 14:36 (RELATIONS MGR) PHONE: AGE: 68 N# [id number] GENDER: Female ENCOUNTER PHYSICIAN: Dr. Jesse Martinez M.D. 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 EATING: EATING - STEP 1: Does the patient complete the activity by him/herself with no assistance (physical, verbal/nonverbal cueing, setup/clean-up)? No. EATING - STEP 2: Does the patient need only setup/clean-up assistance from one helper? Yes. 1. [id number] ADMISSION PERFORMANCE: Setup or clean-up assistance CODE: 05 ORAL HYGIENE: ORAL HYGIENE - STEP 1: Does the patient complete the activity by him/herself with no assistance (physical, verbal/nonverbal cueing, setup/clean-up)? No. ORAL HYGIENE - STEP 2: Does the patient need only setup/clean-up assistance from one helper? Yes. 1. [id number] ADMISSION PERFORMANCE: Setup or clean-up assistance CODE: 05 TOILETING HYGIENE: TOILETING HYGIENE - STEP 1: Does the patient complete the activity by him/herself with no assistance (physical, verbal/nonverbal cueing, setup/clean-up)? No. TOILETING HYGIENE - STEP 2: Does the patient need only setup/clean-up assistance from one helper? No. TOILETING HYGIENE - STEP 3: Does the patient need only verbal/nonverbal cueing or touching/steadying/contact guard assistance fro m one helper? No. TOILETING HYGIENE - STEP 4: Does the patient need physical assistance - for example lifting or trunk support from one helper - wi th the helper providing less than half of the effort? Yes. 1. [id number] ADMISSION PERFORMANCE: Partial/moderate assistance CODE: 03 BATHING: Not assessed/no information CODE: - DRESSING - UPPER BODY: DRESSING - UPPER BODY - STEP 1: Does the patient complete the activity by him/herself with no assistance (physical, verbal/nonverbal cueing, setup/clean-up)? No. DRESSING - UPPER BODY - STEP 2: Does the patient need only setup/clean-up assistance from one helper? No. DRESSING - UPPER BODY - STEP 3: Does the patient need only verbal/nonverbal cueing or touching/steadying/contact guard assistance fro m one helper? Yes. 1. [id number] ADMISSION PERFORMANCE: Supervision or touching assistance CODE: 04 DRESSING - LOWER BODY: DRESSING - LOWER BODY - STEP 1: Does the patient complete the activity by him/herself with no assistance (physical, verbal/nonverbal cueing, setup/clean-up)? No. DRESSING - LOWER BODY - STEP 2: Does the patient need only setup/clean-up assistance from one helper? No. DRESSING - LOWER BODY - STEP 3: Does the patient need only verbal/nonverbal cueing or touching/steadying/contact guard assistance fro m one helper? Yes. 1. [id number] ADMISSION PERFORMANCE: Supervision or touching assistance CODE: 04 PUTTING ON/TAKING OFF FOOTWEAR: FOOTWEAR - STEP 1: Does the patient complete the activity by him/herself with no assistance (physical, verbal/nonverbal cueing, setup/clean-up)? No. FOOTWEAR - STEP 2: Does the patient need only setup/clean-up assistance from one helper? No. FOOTWEAR - STEP 3: Does the patient need only verbal/nonverbal cueing or touching/steadying/contact guard assistance fro m one helper? No. FOOTWEAR - STEP 4: Does the patient need physical assistance - for example lifting or trunk support from one helper - wi th the helper providing less than half of the effort? No. FOOTWEAR - STEP 5: Does the patient need physical assistance - for example lifting or trunk support from one helper - wi th the helper providing more than half of the effort? Yes. 1. [id number] ADMISSION PERFORMANCE: Substantial/maximal assistance CODE: 02 ROLL LEFT AND RIGHT: ROLL LEFT AND RIGHT - STEP 1: Does the patient complete the activity by him/herself with no assistance (physical, verbal/nonverbal cueing, setup/clean-up)? No. ROLL LEFT AND RIGHT - STEP 2: Does the patient need only setup/clean-up assistance from one helper? No. ROLL LEFT AND RIGHT - STEP 3: Does the patient need only verbal/nonverbal cueing or touching/steadying/contact guard assistance fro m one helper? Yes. 1. [id number] ADMISSION PERFORMANCE: Supervision or touching assistance CODE: 04 SIT TO LYING: SIT TO LYING - STEP 1: Does the patient complete the activity by him/herself with no assistance (physical, verbal/nonverbal cueing, setup/clean-up)? No. SIT TO LYING - STEP 2: Does the patient need only setup/clean-up assistance from one helper? No. SIT TO LYING - STEP 3: Does the patient need only verbal/nonverbal cueing or touching/steadying/contact guard assistance fro m one helper? Yes. 1. [id number] ADMISSION PERFORMANCE: Supervision or touching assistance CODE: 04 LYING TO SITTING: LYING TO SITTING ON SIDE OF BED - STEP 1: Does the patient complete the activity by him/herself with no assistance (physical, verbal/nonverbal cueing, setup/clean-up)? No. LYING TO SITTING ON SIDE OF BED - STEP 2: Does the patient need only setup/clean-up assistance from one helper? Yes. LYING TO SITTING ON SIDE OF BED - STEP 3: Does the patient need only verbal/nonverbal cueing or touching/steadying/contact guard assistance fro m one helper? Yes. 1. [id number] ADMISSION PERFORMANCE: Supervision or touching assistance CODE: 04 SIT TO STAND: SIT TO STAND - STEP 1: Does the patient complete the activity by him/herself with no assistance (physical, verbal/nonverbal cueing, setup/clean-up)? No. SIT TO STAND - STEP 2: Does the patient need only setup/clean-up assistance from one helper? No. SIT TO STAND - STEP 3: Does the patient need only verbal/nonverbal cueing or touching/steadying/contact guard assistance fro m one helper? Yes. 1. [id number] ADMISSION PERFORMANCE: Supervision or touching assistance CODE: 04 TRANSFERS: BED, CHAIR: CHAIR/[id number] TRANSFER - STEP 1: Does the patient complete the activity by him/herself with no assistance (physical, verbal/nonverbal cueing, setup/clean-up)? No. CHAIR/[id number] TRANSFER - STEP 2: Does the patient need only setup/clean-up assistance from one helper? No. CHAIR/[id number] TRANSFER - STEP 3: Does the patient need only verbal/nonverbal cueing or touching/steadying/contact guard assistance fro m one helper? Yes. 1. [id number] ADMISSION PERFORMANCE: Supervision or touching assistance CODE: 04 TRANSFER TOILET: TOILET TRANSFER - STEP 1: Does the patient complete the activity by him/herself with no assistance (physical, verbal/nonverbal cueing, setup/clean-up)? No. TOILET TRANSFER - STEP 2: Does the patient need only setup/clean-up assistance from one helper? No. TOILET TRANSFER - STEP 3: Does the patient need only verbal/nonverbal cueing or touching/steadying/contact guard assistance fro m one helper? Yes. 1. [id number] ADMISSION PERFORMANCE: Supervision or touching assistance CODE: 04 TRANSFERS: CAR: Not assessed/no information CODE: - WALK 10 FEET: Not assessed/no information CODE: - 1 STEP (CURB): Not assessed/no information CODE: - PICKING UP OBJECT: Not assessed/no information CODE: - DOES THE PATIENT USE A WHEELCHAIR/SCOOTER? Q1. DOES THE PATIENT USE A WHEELCHAIR/SCOOTER?: Yes CODE: 1 WHEEL 50 FEET WITH TWO TURNS: Not assessed/no information CODE: - INDICATE THE TYPE OF WHEELCHAIR/SCOOTER USED: RR1. INDICATE THE TYPE OF WHEELCHAIR/SCOOTER USED.: Manual CODE: 1 WHEEL 150 FEET: Not assessed/no information CODE: - INDICATE THE TYPE OF WHEELCHAIR/SCOOTER USED: SS1. INDICATE THE TYPE OF WHEELCHAIR/SCOOTER USED.: Manual CODE: 1 BLADDER AND BOWEL: H350. BLADDER CONTINENCE (3-DAY ASSESSMENT PERIOD): Incontinent daily (at least once a day) CODE: 3 H400. BOWEL CONTINENCE (3-DAY ASSESSMENT PERIOD): Always continent CODE: 0 SIGNATURE PANEL: The following modified sections: 1. [id number] Admission Performance, 1. [id number] Admission Performance, 1. [id number] Admission Performance, 1. [id number] Admission Performance, 1. [id number] Admission Performance, 1. EL0148y Admission Performance, 1. IA0851c Admission Performance, 1. [id number] Admission Performance , 1. LZ7761h Admission Performance, 1. [id number] Admission Performance, 1. GL1881A Admission Performanc e, 1. IQ7429F Admission Performance, 1. MS6736A Admission Performance, 1. [id number] Admission Performan ce, 1. GT3602L Admission Performance, 1. [id number] Admission Performance, 1. IL3287U Admission Performa nce, 1. [id number] Admission Performance, 1. EC1170V Admission Performance, Q1. Does the patient use a w heelchair/scooter?, RR1. Indicate the type of wheelchair/scooter used., Code, SS1. Indicate the type of wheelchair/scooter used., H350. Bladder Continence (3-day assessment period), H400. Bowel Continen ce (3-day assessment period) were [electronically] signed by Susie Ugarte C.N.A. on TueDec 26 2018 16:20:45 GMT-0600 (Central Standard Time)
[2018-12-26] MEDS: DOCUSATE NA/SENNA CONC 1 TAB PO PRN (19:27)
[2018-12-26] MEDS: ATORVASTATIN 80 MG TAB PO SCH (20:01)
[2018-12-27] MEDS: METOPROLOL TAR 25 MG TAB PO SCH (05:21)
[2018-12-27] MEDS: INSULIN -REGULAR HUMAN 50 UNIT/0.5 ML ML SQ SCH ×4 (07:30→19:01)
[2018-12-27] MEDS: POTASSIUM 25 MEQ EFFERV TAB PO SCH ×2 (07:57→18:54)
[2018-12-27] MEDS: AMLODIPINE 5 MG TAB PO SCH (07:58)
[2018-12-27] MEDS: CYCLOBENZAPRINE 10 MG TAB PO SCH ×3 (07:58→18:54)
[2018-12-27] MEDS: hydroCHLOROthiazide 12.5 MG CAP PO SCH (07:59)
[2018-12-27] MEDS: levoFLOXacin 500 MG TAB PO SCH (07:59)
[2018-12-27] MEDS: NAPROXEN 250 MG TAB PO SCH ×2 (07:59→18:54)
[2018-12-27] MEDS: LOSARTAN POTASSIUM 50 MG TABLET PO SCH (07:59)
[2018-12-27] MEDS: DIPYRIDAMOLE/ASPIRIN CAP ER PO SCH ×3 (08:00→19:04)
--- NOTE | 2018-12-27 14:03 | FAST ---
ENCOUNTER DATE AND TIME: 12/27/2018 08:00 (EDUCATION PROGRAM ASSOCIATE) NAME GRACIE GRIJALVA DATE OF : 1950 DATE OF ADMISSION: 12/23/2018 14:36 (EDUCATION PROGRAM ASSOCIATE) PHONE: AGE: 68 N# [id number] GENDER: Female ENCOUNTER PHYSICIAN: Dr. Jesse Martinez M.D. 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 EATING: Not assessed/no information CODE: - ORAL HYGIENE: ORAL HYGIENE - STEP 1: Does the patient complete the activity by him/herself with no assistance (physical, verbal/nonverbal cueing, setup/clean-up)? No. ORAL HYGIENE - STEP 2: Does the patient need only setup/clean-up assistance from one helper? Yes. 1. [id number] ADMISSION PERFORMANCE: Setup or clean-up assistance CODE: 05 TOILETING HYGIENE: Not assessed/no information CODE: - BATHING: SHOWER/BATHE SELF - STEP 1: Does the patient complete the activity by him/herself with no assistance (physical, verbal/nonverbal cueing, setup/clean-up)? No. SHOWER/BATHE SELF - STEP 2: Does the patient need only setup/clean-up assistance from one helper? No. SHOWER/BATHE SELF - STEP 3: Does the patient need only verbal/nonverbal cueing or touching/steadying/contact guard assistance fro m one helper? Yes. 1. [id number] ADMISSION PERFORMANCE: Supervision or touching assistance CODE: 04 DRESSING - UPPER BODY: DRESSING - UPPER BODY - STEP 1: Does the patient complete the activity by him/herself with no assistance (physical, verbal/nonverbal cueing, setup/clean-up)? No. DRESSING - UPPER BODY - STEP 2: Does the patient need only setup/clean-up assistance from one helper? No. DRESSING - UPPER BODY - STEP 3: Does the patient need only verbal/nonverbal cueing or touching/steadying/contact guard assistance fro m one helper? Yes. 1. [id number] ADMISSION PERFORMANCE: Supervision or touching assistance CODE: 04 DRESSING - LOWER BODY: DRESSING - LOWER BODY - STEP 1: Does the patient complete the activity by him/herself with no assistance (physical, verbal/nonverbal cueing, setup/clean-up)? No. DRESSING - LOWER BODY - STEP 2: Does the patient need only setup/clean-up assistance from one helper? No. DRESSING - LOWER BODY - STEP 3: Does the patient need only verbal/nonverbal cueing or touching/steadying/contact guard assistance fro m one helper? No. DRESSING - LOWER BODY - STEP 4: Does the patient need physical assistance - for example lifting or trunk support from one helper - wi th the helper providing less than half of the effort? No. DRESSING - LOWER BODY - STEP 5: Does the patient need physical assistance - for example lifting or trunk support from one helper - wi th the helper providing more than half of the effort? Yes. 1. [id number] ADMISSION PERFORMANCE: Substantial/maximal assistance CODE: 02 PUTTING ON/TAKING OFF FOOTWEAR: FOOTWEAR - STEP 1: Does the patient complete the activity by him/herself with no assistance (physical, verbal/nonverbal cueing, setup/clean-up)? No. FOOTWEAR - STEP 2: Does the patient need only setup/clean-up assistance from one helper? No. FOOTWEAR - STEP 3: Does the patient need only verbal/nonverbal cueing or touching/steadying/contact guard assistance fro m one helper? No. FOOTWEAR - STEP 4: Does the patient need physical assistance - for example lifting or trunk support from one helper - wi th the helper providing less than half of the effort? No. FOOTWEAR - STEP 5: Does the patient need physical assistance - for example lifting or trunk support from one helper - wi th the helper providing more than half of the effort? Yes. 1. [id number] ADMISSION PERFORMANCE: Substantial/maximal assistance CODE: 02 DOES THE PATIENT USE A WHEELCHAIR/SCOOTER? CODE: EXPR INDICATE THE TYPE OF WHEELCHAIR/SCOOTER USED: CODE: EXPR INDICATE THE TYPE OF WHEELCHAIR/SCOOTER USED: CODE: EXPR BLADDER AND BOWEL: CODE: EXPR CODE: EXPR SIGNATURE PANEL: The following modified sections: 1. [id number] Admission Performance, 1. AK4160b Admission Performance, 1. [id number] Admission Performance, 1. [id number] Admission Performance, 1. LR0628p Admission Performance were [electronically] signed by DONOVAN De Jesus on TueDec 27 2018 14:02:39 T-0600 (Central Standard Time)
[2018-12-27] MEDS: POLYETHYL GLY 3350 17 GM/DOSE PO PRN (14:26)
[2018-12-27] MEDS: DOCUSATE NA/SENNA CONC 1 TAB PO PRN (18:53)
[2018-12-27] MEDS: ATORVASTATIN 80 MG TAB PO SCH (18:53)
--- NOTE | 2018-12-27 20:15 | R.PN ---
ENCOUNTER DATE AND TIME: 12/27/2018 20:13 (REFRIGERATION INSULATOR) NAME GRACIE VALADEZ DATE OF : 1950 DATE OF ADMISSION: 12/23/2018 14:36 (REFRIGERATION INSULATOR) Acute to subacute infarct Right Lentiform Nucleus and Adjacent CaudateCHIEF COMPLAINT: Dysarthria, dysphagia, left hemiparesis, incoordination. SUBJECTIVE: Pt denied any Shortness of Breath. Pt denied any depression. Her chest x-ray showed likely aspiration pneumonia. Finished levaquin 500 mg daily for pneumonia. Labs reviewed and are stable. She is making fair overall progress with physical, occupational and spe ech therapy. VITAL SIGNS Temperature: 97.6F SBP/DBP: 144/83 Pulse: 76 Resp: 16 MEDICATION ALLERGIES: No Known Drug Allergies (NKDA) ENVIRONMENTAL ALLERGIES: None Known - Substance Allergies None Known - Other Allergies None Known NURSING: - Shower allowing shower - Bladder care per protocol - Skin care per protocol PRECAUTIONS: - Weight Bearing Precaution WBAT left LE ACTIVITIES OOB only with supervision THERAPIES: - Occupational Therapy Cognitive Retraining. Visual Perceptual Training. - Dietary and Nutrition Adequate Nutrition. Nutritional Education. Nutritional Supplements. - Speech Therapy Cognitive Training. Dysphagia Therapy. Expressive Language Skills. Memory Strategies. Receptive Langu age Skills. Speech Intelligibility Training. PHYSICAL EXAM - Gen Alert and awake Lying in bed No apparent distress Oriented to: person, time, and place - Skin No skin breakdown. Normacephalic - Eyes No abnormalities - ENMT No abnormalities - Neck No abnormalities - CVS RRR - Chest Clear - Resp No wheezing - Abd + bowel sounds - GI Non distended Deferred - No abnormalities - Ext No significant edema - MSK 3+/5 weakness in left upper and 4+/5 in left lower extremity - Neuro 3+/5 weakness in left upper and 4+/5 in left lower extremity - Psych No abnormalities ASSESSMENT: Pt. is a 68 yo Right-handed black female.On 12/19/2018 Pt. presented to [facility] with sudden on set of left-side weakness.On 12/19/2018 she was admitted to [facility] with diagnosis Acute to julian bacute infarct Right Lentiform Nucleus and Adjacent Caudate.Her impairment category is Stroke 01 - L eft Body (Right Brain) (01.1).Pre-morbidly, Pt. was independent/mod-I in Locomotion, Safety Awareness , Balance, Social Cognition, Transfers Control, Sphincter Control, Self-Care, and Endurance; and she had good Balance, Endurance, Locomotion, Transfers Control, Communication, and Social Cognition.Darshan hoskinsly, she has deficits of Locomotion, Safety Awareness, Balance, Transfers Control, Self-Care, and Co mmunication.Pt. is now referred to [facility] for acute in-patient rehabilitat ion in order to maximize patient's functional independence in activities of daily living, strength, R OM, and mobility.- Rehab Goal Patient has realistic goal of being discharged at assistance level 6-Erica to reside at Home with Fam elis/Relatives. MDM/PLAN: - Physical Therapy Gait dysfunction - to improve, our physical therapists will perform initial evaluation of pt's statu s upon admission and devise an individualized program for Gait Training, and Wheel Chair mobility Inability to transfer - to improve, our physical therapists will perform initial evaluation of pt's status upon admission and devise an individualized program for Bed mobility Need for home safety evaluation - to improve, our physical therapists will perform initial evaluatio n of pt's status upon admission and devise an individualized program for Home Evaluation Need in caregiver upon discharge - to improve, our physical therapists will perform initial evaluati on of pt's status upon admission and devise an individualized program for Caregiver Training Edema - to improve, our physical therapists will perform initial evaluation of pt's status upon admis jo and devise an individualized program for Elevation Training, and Lymphedema Therapy New precaution - to improve, our physical therapists will perform initial evaluation of pt's status upon admission and devise an individualized program for Patient precaution education Poor balance - to improve, our physical therapists will perform initial evaluation of pt's status up on admission and devise an individualized program for Balance Training Weakness - to improve, our physical therapists will perform initial evaluation of pt's status upon a dmission and devise an individualized program for Aquatic Therapy, Neuromuscular Reeducation, and Str engthening Achieving independence - to improve, our physical therapists will perform initial evaluation of pt's status upon admission and devise an individualized program for Community Reintegration Activities - Occupational Therapy ADL deficits - to improve, our occupation therapists will perform initial evaluation of pt's status upon admission and devise an individualized program for Bathing, Bed mobility, Community Reintegratio n, Cooking, Dressing, Eating, Fine Motor Skills, Grooming, Homemaking, Kitchen Mobility, Laundry, Pat ient Education, Safety Awareness, Splinting - Positioning, Transfers(Toilet, Tub, Shower), and Wheel Chair Management Need for hospice patient care secretary - to improve, our occupation therapists will perform initial evaluation of pt's status upon admission and devise an individualized program for Caregiver Training Weakness - to improve, our occupation therapists will perform initial evaluation of pt's status upon admission and devise an individualized program for Aquatic Therapy, Balance, Endurance, UE ROM, and UE strengthening - Other See attached MAR (Medication Administration Record) [email or web address] See attached MAR (Medication Administration Record) [email or web address].pdf See attached MAR (Medication Administration Record) - Diet Type Continue Regular - Diet - Liquid Texture Continue Thin - Tube Feed Continue N/A - Bladder care per protocol - Weight Bearing Precaution WBAT left LE - Skin care per protocol - Diet - Solid Texture Continue Regular Continue Pureed - Shower allowing shower for Dementia, TBI, Stroke, or others FUNCTIONAL STATUS: UPDATED AT WEEKLY TEAM CONFERENCE - Bladder Same accident frequency: 7-Ind - No accidents in the past 7 days - Bowel Same accident frequency: 7-Ind - No accidents in the past 7 days - Walking Same score based on distance walked: 1(<=50ft) - Wheelchair Same score based on distance traveled: 0(N/A) FUNCTIONAL STATUS: - Self-Care A. Eating modA B. Grooming sup C. Bathing Kiersten D. Dressing - Upper Kiersten E. Dressing - Lower Kiersten F. Toileting modA - Sphincter Control G. Bladder control sup H. Bowel control sup - Transfers Control I. Bed/Chair/Wheelchair modA J. Toilet modA K. Tub/Shower modA - Locomotion L. Walk/Wheelchair (W) modA M. Stairs maxA - Communication N. Comprehension (B) sup O. Expression (B) modA - Social Cognition P. Social Interaction sup Q. Problem Solving sup R. Memory Ind - Endurance Good - Balance Good - Safety Awareness Good QI SCORES: - Self-Care A. Eating 03-Partial/moderate assistance B. Oral hygiene 03-Partial/moderate assistance C. Toileting hygiene 03-Partial/moderate assistance E. Shower/bathe self 03-Partial/moderate assistance F. Upper body dressing 03-Partial/moderate assistance G. Lower body dressing 03-Partial/moderate assistance H. Putting on/taking off footwear 02-Substantial/maximal assistance - Mobility A. Roll left and right 03-Partial/moderate assistance B. Sit to lying 03-Partial/moderate assistance C. Lying to sitting on side of bed 03-Partial/moderate assistance D. Sit to stand 04-Supervision or touching assistance E. Chair/qhs-[id number] transfer 04-Supervision or touching assistance F. Toilet transfer 03-Partial/moderate assistance G. Car transfer 88-Not attempted due to medical condition or safety concerns I. Walk 10 feet 04-Supervision or touching assistance J. Walk 50 feet with two turns 88-Not attempted due to medical condition or safety concerns K. Walk 150 feet 88-Not attempted due to medical condition or safety concerns L. Walking 10 feet on uneven surfaces 88-Not attempted due to medical condition or safety concerns M. 1 step (curb) 88-Not attempted due to medical condition or safety concerns N. 4 steps 88-Not attempted due to medical condition or safety concerns O. 12 steps 88-Not attempted due to medical condition or safety concerns P. Picking up object 88-Not attempted due to medical condition or safety concerns R. Wheel 50 feet with two turns 88-Not attempted due to medical condition or safety concerns S. Wheel 150 feet 88-Not attempted due to medical condition or safety concerns - Bladder and Bowel Bladder continence 0-Always continent Bowel continence 0-Always continent - Endurance Fair - Balance Fair - Safety Awareness Fair [facility] DEFICITS: Self-Care, Mobility, Endurance, Balance, and Safety Awareness SIGNATURE PANEL: (REFRIGERATION INSULATOR)
[2018-12-28] MEDS: METOPROLOL TAR 25 MG TAB PO SCH (05:06)
[2018-12-28 05:57] LABS: Absolute Lymphocytes (CBC) 1.3 K/uL (0.7-4.9); Basophils % 0.9 % (0-1.3); Hematocrit 36.4 % (36.0-45.0); Lymphocytes % 14.9 % (15.3-44.8); MPV 9.4 fL (7.6-11.3); RBC Red Blood Cell Count 4.37 M/uL (3.86-4.86)
[2018-12-28 06:18] LABS: Albumin 3.3 g/dL (3.4-5.0); Magnesium 2.3 mg/dL (1.8-2.4); Prealbumin 19.2 mg/dL (20-40)
[2018-12-28] MEDS: INSULIN -REGULAR HUMAN 50 UNIT/0.5 ML ML SQ SCH ×4 (07:30→19:44)
[2018-12-28] MEDS: POTASSIUM 25 MEQ EFFERV TAB PO SCH ×2 (08:00→19:42)
[2018-12-28] MEDS: levoFLOXacin 500 MG TAB PO SCH (08:00)
[2018-12-28] MEDS: DIPYRIDAMOLE/ASPIRIN CAP ER PO SCH ×2 (08:00→19:42)
[2018-12-28] MEDS: AMLODIPINE 5 MG TAB PO SCH (08:00)
[2018-12-28] MEDS: LOSARTAN POTASSIUM 50 MG TABLET PO SCH (08:00)
[2018-12-28] MEDS: NAPROXEN 250 MG TAB PO SCH ×2 (08:00→19:43)
[2018-12-28] MEDS: CYCLOBENZAPRINE 10 MG TAB PO SCH ×3 (09:00→19:42)
[2018-12-28] MEDS: hydroCHLOROthiazide 12.5 MG CAP PO SCH (10:00)
--- NOTE | 2018-12-28 14:53 | FAST ---
ENCOUNTER DATE AND TIME: 12/28/2018 08:00 (DIRECTOR DECISION SUPPORT) NAME GRACIE GRIJALVA DATE OF : 1950 DATE OF ADMISSION: 12/23/2018 14:36 (DIRECTOR DECISION SUPPORT) PHONE: AGE: 68 N# [id number] GENDER: Female ENCOUNTER PHYSICIAN: Dr. Jesse Martinez M.D. 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 ROLL LEFT AND RIGHT: ROLL LEFT AND RIGHT - STEP 1: Does the patient complete the activity by him/herself with no assistance (physical, verbal/nonverbal cueing, setup/clean-up)? No. ROLL LEFT AND RIGHT - STEP 2: Does the patient need only setup/clean-up assistance from one helper? Yes. 1. [id number] ADMISSION PERFORMANCE: Setup or clean-up assistance CODE: 05 SIT TO LYING: SIT TO LYING - STEP 1: Does the patient complete the activity by him/herself with no assistance (physical, verbal/nonverbal cueing, setup/clean-up)? No. SIT TO LYING - STEP 2: Does the patient need only setup/clean-up assistance from one helper? Yes. 1. [id number] ADMISSION PERFORMANCE: Setup or clean-up assistance CODE: 05 LYING TO SITTING: LYING TO SITTING ON SIDE OF BED - STEP 1: Does the patient complete the activity by him/herself with no assistance (physical, verbal/nonverbal cueing, setup/clean-up)? No. LYING TO SITTING ON SIDE OF BED - STEP 2: Does the patient need only setup/clean-up assistance from one helper? Yes. 1. [id number] ADMISSION PERFORMANCE: Setup or clean-up assistance CODE: 05 SIT TO STAND: SIT TO STAND - STEP 1: Does the patient complete the activity by him/herself with no assistance (physical, verbal/nonverbal cueing, setup/clean-up)? No. SIT TO STAND - STEP 2: Does the patient need only setup/clean-up assistance from one helper? Yes. 1. [id number] ADMISSION PERFORMANCE: Setup or clean-up assistance CODE: 05 TRANSFERS: BED, CHAIR: CHAIR/[id number] TRANSFER - STEP 1: Does the patient complete the activity by him/herself with no assistance (physical, verbal/nonverbal cueing, setup/clean-up)? No. CHAIR/[id number] TRANSFER - STEP 2: Does the patient need only setup/clean-up assistance from one helper? Yes. 1. [id number] ADMISSION PERFORMANCE: Setup or clean-up assistance CODE: 05 TRANSFER TOILET: Not attempted due to medical condition or safety concerns CODE: 88 TRANSFERS: CAR: Not attempted due to environmental limitations (e.g., lack of equipment, weather constraints) CODE: 10 WALK 10 FEET: WALK 10 FEET - STEP 1: Does the patient complete the activity by him/herself with no assistance (physical, verbal/nonverbal cueing, setup/clean-up)? No. WALK 10 FEET - STEP 2: Does the patient need only setup/clean-up assistance from one helper? Yes. 1. [id number] ADMISSION PERFORMANCE: Setup or clean-up assistance CODE: 05 WALK 50 FEET: WALK 50 FEET - STEP 1: Does the patient complete the activity by him/herself with no assistance (physical, verbal/nonverbal cueing, setup/clean-up)? No. WALK 50 FEET - STEP 2: Does the patient need only setup/clean-up assistance from one helper? Yes. 1. [id number] ADMISSION PERFORMANCE: Setup or clean-up assistance CODE: 05 WALK 150 FEET: WALK 150 FEET - STEP 1: Does the patient complete the activity by him/herself with no assistance (physical, verbal/nonverbal cueing, setup/clean-up)? No. WALK 150 FEET - STEP 2: Does the patient need only setup/clean-up assistance from one helper? Yes. 1. [id number] ADMISSION PERFORMANCE: Setup or clean-up assistance CODE: 05 WALK 10 FEET UNEVEN: Not attempted due to medical condition or safety concerns CODE: 88 1 STEP (CURB): Not attempted due to medical condition or safety concerns CODE: 88 PICKING UP OBJECT: Not attempted due to medical condition or safety concerns CODE: 88 DOES THE PATIENT USE A WHEELCHAIR/SCOOTER? Q1. DOES THE PATIENT USE A WHEELCHAIR/SCOOTER?: Yes CODE: 1 WHEEL 50 FEET WITH TWO TURNS: Not attempted due to medical condition or safety concerns CODE: 88 INDICATE THE TYPE OF WHEELCHAIR/SCOOTER USED: CODE: EXPR WHEEL 150 FEET: Not attempted due to medical condition or safety concerns CODE: 88 INDICATE THE TYPE OF WHEELCHAIR/SCOOTER USED: CODE: EXPR BLADDER AND BOWEL: CODE: EXPR CODE: EXPR SIGNATURE PANEL: The following modified sections: 1. [id number] Admission Performance, 1. [id number] Admission Performance, 1. [id number] Admission Performance, 1. [id number] Admission Performance, 1. [id number] Admission Performance, 1. [id number] Admission Performance, 1. [id number] Admission Performance, 1. [id number] Admission Performance , 1. [id number] Admission Performance, Q1. Does the patient use a wheelchair/scooter?, Code were [electr onically] signed by Patrice Farley PTA on TueDec 28 2018 14:52:21 GMT-0600 (Central Standard Time)
--- NOTE | 2018-12-28 18:25 | R.PN ---
ENCOUNTER DATE AND TIME: 12/28/2018 18:20 (SUPPLY CHAIN DIRECTOR) NAME GRACIE VALADEZ DATE OF : 1950 DATE OF ADMISSION: 12/23/2018 14:36 (SUPPLY CHAIN DIRECTOR) Acute to subacute infarct Right Lentiform Nucleus and Adjacent CaudateCHIEF COMPLAINT: Dysarthria, dysphagia, left hemiparesis, incoordination. SUBJECTIVE: Pt denied any Shortness of Breath. Pt denied any depression. Her chest x-ray showed likely aspiration pneumonia. Finished levaquin 500 mg daily for pneumonia. Labs reviewed and are stable. She is making fair overall progress with physical, occupational. She fa iled a repeat barium swallow study except pureed diet. She has very poor labial, lingual and guttural sounds VITAL SIGNS Temperature: 97.6F SBP/DBP: 153/77 Pulse: 74 Resp: 16 MEDICATION ALLERGIES: No Known Drug Allergies (NKDA) ENVIRONMENTAL ALLERGIES: None Known - Substance Allergies None Known - Other Allergies None Known NURSING: - Shower allowing shower - Bladder care per protocol - Skin care per protocol PRECAUTIONS: - Weight Bearing Precaution WBAT left LE ACTIVITIES OOB only with supervision THERAPIES: - Occupational Therapy Cognitive Retraining. Visual Perceptual Training. - Dietary and Nutrition Adequate Nutrition. Nutritional Education. Nutritional Supplements. - Speech Therapy Cognitive Training. Dysphagia Therapy. Expressive Language Skills. Memory Strategies. Receptive Langu age Skills. Speech Intelligibility Training. PHYSICAL EXAM - Gen Alert and awake Lying in bed No apparent distress Oriented to: person, time, and place - Skin No skin breakdown. Normacephalic - Eyes No abnormalities - ENMT No abnormalities - Neck No abnormalities - CVS RRR - Chest Clear - Resp No wheezing - Abd + bowel sounds - GI Non distended Deferred - No abnormalities - Ext No significant edema - MSK 3+/5 weakness in left upper and 4+/5 in left lower extremity - Neuro 3+/5 weakness in left upper and 4+/5 in left lower extremity - Psych No abnormalities ASSESSMENT: Pt. is a 68 yo Right-handed black female.On 12/19/2018 Pt. presented to [facility]] with sudden on set of left-side weakness.On 12/19/2018 she was admitted to [facility]3] with diagnosis Acute to julian bacute infarct Right Lentiform Nucleus and Adjacent Caudate.Her impairment category is Stroke 01 - L eft Body (Right Brain) (01.1).Pre-morbidly, Pt. was independent/mod-I in Locomotion, Safety Awareness , Balance, Social Cognition, Transfers Control, Sphincter Control, Self-Care, and Endurance; and she had good Balance, Endurance, Locomotion, Transfers Control, Communication, and Social Cognition.Katiemina ntly, she has deficits of Locomotion, Safety Awareness, Balance, Transfers Control, Self-Care, and Co mmunication.Pt. is now referred to [facility] for acute in-patient rehabilitat ion in order to maximize patient's functional independence in activities of daily living, strength, R OM, and mobility.- Rehab Goal Patient has realistic goal of being discharged at assistance level 6-Erica to reside at Home with Fam elis/Relatives. MDM/PLAN: - Physical Therapy Gait dysfunction - to improve, our physical therapists will perform initial evaluation of pt's statu s upon admission and devise an individualized program for Gait Training, and Wheel Chair mobility Inability to transfer - to improve, our physical therapists will perform initial evaluation of pt's status upon admission and devise an individualized program for Bed mobility Need for home safety evaluation - to improve, our physical therapists will perform initial evaluatio n of pt's status upon admission and devise an individualized program for Home Evaluation Need in caregiver upon discharge - to improve, our physical therapists will perform initial evaluati on of pt's status upon admission and devise an individualized program for Caregiver Training Edema - to improve, our physical therapists will perform initial evaluation of pt's status upon admi ssion and devise an individualized program for Elevation Training, and Lymphedema Therapy New precaution - to improve, our physical therapists will perform initial evaluation of pt's status upon admission and devise an individualized program for Patient precaution education Poor balance - to improve, our physical therapists will perform initial evaluation of pt's status up on admission and devise an individualized program for Balance Training Weakness - to improve, our physical therapists will perform initial evaluation of pt's status upon a dmission and devise an individualized program for Aquatic Therapy, Neuromuscular Reeducation, and Str engthening Achieving independence - to improve, our physical therapists will perform initial evaluation of pt's status upon admission and devise an individualized program for Community Reintegration Activities - Occupational Therapy ADL deficits - to improve, our occupation therapists will perform initial evaluation of pt's status upon admission and devise an individualized program for Bathing, Bed mobility, Community Reintegratio n, Cooking, Dressing, Eating, Fine Motor Skills, Grooming, Homemaking, Kitchen Mobility, Laundry, Pat ient Education, Safety Awareness, Splinting - Positioning, Transfers(Toilet, Tub, Shower), and Wheel Chair Management Need for healthcare science specialist - to improve, our occupation therapists will perform initial evaluation of pt's status upon admission and devise an individualized program for Caregiver Training Weakness - to improve, our occupation therapists will perform initial evaluation of pt's status upon admission and devise an individualized program for Aquatic Therapy, Balance, Endurance, UE ROM, and UE strengthening - Other See attached MAR (Medication Administration Record) [email or web address].pdf See attached MAR (Medication Administration Record) - Diet Type Continue Regular - Diet - Liquid Texture Continue Thin - Tube Feed Continue N/A - Bladder care per protocol - Weight Bearing Precaution WBAT left LE - Skin care per protocol - Diet - Solid Texture Continue Regular Continue Pureed - Shower allowing shower for Dementia, TBI, Stroke, or others FUNCTIONAL STATUS: UPDATED AT WEEKLY TEAM CONFERENCE - Bladder Same accident frequency: 7-Ind - No accidents in the past 7 days - Bowel Same accident frequency: 7-Ind - No accidents in the past 7 days - Walking Same score based on distance walked: 1(<=50ft) - Wheelchair Same score based on distance traveled: 0(N/A) FUNCTIONAL STATUS: - Self-Care A. Eating modA B. Grooming sup C. Bathing Kiersten D. Dressing - Upper Kiersten E. Dressing - Lower Kiersten F. Toileting modA - Sphincter Control G. Bladder control sup H. Bowel control sup - Transfers Control I. Bed/Chair/Wheelchair modA J. Toilet modA K. Tub/Shower modA - Locomotion L. Walk/Wheelchair (W) modA M. Stairs maxA - Communication N. Comprehension (B) sup O. Expression (B) modA - Social Cognition P. Social Interaction sup Q. Problem Solving sup R. Memory Ind - Endurance Good - Balance Good - Safety Awareness Good QI SCORES: - Self-Care A. Eating 03-Partial/moderate assistance B. Oral hygiene 03-Partial/moderate assistance C. Toileting hygiene 03-Partial/moderate assistance E. Shower/bathe self 03-Partial/moderate assistance F. Upper body dressing 03-Partial/moderate assistance G. Lower body dressing 03-Partial/moderate assistance H. Putting on/taking off footwear 02-Substantial/maximal assistance - Mobility A. Roll left and right 03-Partial/moderate assistance B. Sit to lying 03-Partial/moderate assistance C. Lying to sitting on side of bed 03-Partial/moderate assistance D. Sit to stand 04-Supervision or touching assistance E. Chair/[id number] transfer 04-Supervision or touching assistance F. Toilet transfer 03-Partial/moderate assistance G. Car transfer 88-Not attempted due to medical condition or safety concerns I. Walk 10 feet 04-Supervision or touching assistance J. Walk 50 feet with two turns 88-Not attempted due to medical condition or safety concerns K. Walk 150 feet 88-Not attempted due to medical condition or safety concerns L. Walking 10 feet on uneven surfaces 88-Not attempted due to medical condition or safety concerns M. 1 step (curb) 88-Not attempted due to medical condition or safety concerns N. 4 steps 88-Not attempted due to medical condition or safety concerns O. 12 steps 88-Not attempted due to medical condition or safety concerns P. Picking up object 88-Not attempted due to medical condition or safety concerns R. Wheel 50 feet with two turns 88-Not attempted due to medical condition or safety concerns S. Wheel 150 feet 88-Not attempted due to medical condition or safety concerns - Bladder and Bowel Bladder continence 0-Always continent Bowel continence 0-Always continent - Endurance Fair - Balance Fair - Safety Awareness Fair CURRENT [facility]. DEFICITS: Self-Care, Mobility, Endurance, Balance, and Safety Awareness SIGNATURE PANEL: (SUPPLY CHAIN DIRECTOR)
[2018-12-28] MEDS: ATORVASTATIN 80 MG TAB PO SCH (19:44)
[2018-12-28] MEDS: DOCUSATE NA/SENNA CONC 1 TAB PO PRN (19:44)
[2018-12-28] MEDS: PROMOD 30 ML DOSE PO SCH (19:44)
[2018-12-29] MEDS: METOPROLOL TAR 25 MG TAB PO SCH (05:41)
[2018-12-29] MEDS: INSULIN -REGULAR HUMAN 50 UNIT/0.5 ML ML SQ SCH ×4 (07:30→21:00)
[2018-12-29] MEDS: POLYETHYL GLY 3350 17 GM/DOSE PO PRN (07:39)
[2018-12-29] MEDS: levoFLOXacin 500 MG TAB PO SCH (07:39)
[2018-12-29] MEDS: POTASSIUM 25 MEQ EFFERV TAB PO SCH ×2 (07:39→21:11)
[2018-12-29] MEDS: CYCLOBENZAPRINE 10 MG TAB PO SCH ×3 (07:40→21:00)
[2018-12-29] MEDS: NAPROXEN 250 MG TAB PO SCH ×2 (07:40→20:00)
[2018-12-29] MEDS: hydroCHLOROthiazide 12.5 MG CAP PO SCH (07:41)
[2018-12-29] MEDS: LOSARTAN POTASSIUM 50 MG TABLET PO SCH (07:41)
[2018-12-29] MEDS: PROMOD 30 ML DOSE PO SCH ×2 (07:42→21:12)
[2018-12-29] MEDS: DIPYRIDAMOLE/ASPIRIN CAP ER PO SCH ×2 (07:43→21:10)
--- NOTE | 2018-12-29 09:31 | P.RH.PN ---
Estimated Length of Stay: 24 Expected Discharge Date: 01/14/19 Discharge Disposition Plan: Home Family Support: Yes [facility] Goal: Mobility, Transfers, Self Care Vital Signs: Last Vital Signs Temp 97.4 F 12/29/18 07:51 Pulse 74 12/29/18 07:51 Resp 18 12/29/18 07:51 BP 105/64 12/29/18 07:51 Pulse Ox 94 12/29/18 07:51 Laboratory: Laboratory Last Values WBC 9.0 K/uL (4.3-10.9) 12/28/18 05:37 RBC 4.37 M/uL (3.86-4.86) 12/28/18 05:37 Hgb 12.0 g/dL (12.0-15.0) 12/28/18 05:37 Hct 36.4 % (36.0-45.0) 12/28/18 05:37 MCV 83.2 fL (80-100) 12/28/18 05:37 MCH 27.4 pg (27.0-35.0) 12/28/18 05:37 MCHC 33.0 g/dL (32.0-36.0) 12/28/18 05:37 RDW 14.7 % (12.1-15.2) 12/28/18 05:37 Plt Count 288 K/uL (152-406) 12/28/18 05:37 MPV 9.4 fL (7.6-11.3) 12/28/18 05:37 Neutrophils % 75.3 % (41.7-73.7) H 12/28/18 05:37 Lymphocytes % 14.9 % (15.3-44.8) L 12/28/18 05:37 Monocytes % 5.3 % (3.3-12.3) 12/28/18 05:37 Eosinophils % 3.6 % (0-4.4) 12/28/18 05:37 Basophils % 0.9 % (0-1.3) 12/28/18 05:37 Absolute Neutrophils 6.8 K/uL (1.8-8.0) 12/28/18 05:37 Absolute Lymphocytes 1.3 K/uL (0.7-4.9) 12/28/18 05:37 Absolute Monocytes 0.5 K/uL (0.1-1.3) 12/28/18 05:37 Absolute Eosinophils 0.3 K/uL (0-0.5) 12/28/18 05:37 Absolute Basophils 0.1 K/uL (0-0.5) 12/28/18 05:37 Sodium 143 mmol/L (136-145) 12/28/18 05:37 Potassium 4.0 mmol/L (3.5-5.1) 12/28/18 05:37 Chloride 108 mmol/L (98-107) H 12/28/18 05:37 Carbon Dioxide 33 mmol/L (21-32) H 12/28/18 05:37 BUN 28 mg/dL (7-18) H 12/28/18 05:37 Creatinine 1.46 mg/dL (0.55-1.3) H 12/28/18 05:37 Estimated GFR 43 mL/min (=/>90) L 12/28/18 05:37 Glucose 105 mg/dL (74-106) 12/28/18 05:37 POC Glucose 106 mg/dl (65-120) 12/29/18 07:37 Calcium 9.2 mg/dL (8.5-10.1) 12/28/18 05:37 Magnesium 2.3 mg/dL (1.8-2.4) 12/28/18 05:37 Albumin 3.3 g/dL (3.4-5.0) L 12/28/18 05:37 Prealbumin 19.2 mg/dL (20-40) L 12/28/18 05:37 Urine Color Yellow 12/23/18 15:20 Urine Appearance Clear 12/23/18 15:20 Urine pH 5.5 (5.0-7.0) 12/23/18 15:20 Ur Specific [place] 1.025 (1.005-1.030) 12/23/18 15:20 Urine Ketones Negative (NEG) 12/23/18 15:20 Urine Blood 2+ (NEG) H 12/23/18 15:20 Urine Nitrite Negative (NEG) 12/23/18 15:20 Urine Bilirubin Negative (NEG) 12/23/18 15:20 Urine Urobilinogen 0.2 mg/dL (0.2-1.0) 12/23/18 15:20 Ur Leukocyte Esterase Negative (NEG) 12/23/18 15:20 Urine RBC <5 /HPF (NONE SEEN) 12/23/18 15:20 Urine WBC <5 /HPF (<5) 12/23/18 15:20 Ur Squamous Epith Cells <5 /HPF (NONE SEEN) 12/23/18 15:20 Calcium Oxalate Crystal Many (NONE SEEN) H 12/23/18 15:20 Urine Bacteria <20 /HPF (<20) 12/23/18 15:20 Urine Culture Reflexed Not needed 12/23/18 15:20 Urine Glucose Negative (NEG) 12/23/18 15:20 Urine Total Protein Trace (NEG) 12/23/18 15:20 Weight: 203 lb Wound Present: No Closed Surgical Incision Present: Yes Negative Pressure Wound Therapy Present: No Physician Update: Labs reviewed and Director Of Creative Services is elevated to 1.46. She will be given 1L of iv normal saline. Her diet is down graded due to aspiration of thin liquids. She is working hard with all therapy. She is making fair progress with physical and occupational therapy. Medical Issues: Aspiration Pneumonia- on levaquin 500mg Daily for 7 days. Patient is incontinent daily with bladder and always continent with bowel. Functional Improvement: Patient has met all short-term goals at this time, and is progressing well toward long-term goals. Patient continues to present w/ impulsivity and requires VC and TC for correction of issues. Patient working to increase distance travelled w/ each gait tx. set. 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 Please see the Rehabilitation Signature page for all necessary signatures.
[2018-12-29] MEDS ORDERED: TOPIRAMATE 25 MG TAB PO ONE (10:06)
[2018-12-29] MEDS: NA CHLORIDE 0.9% 1,000 ML IV SCH (13:50)
--- NOTE | 2018-12-29 16:11 | FAST ---
ENCOUNTER DATE AND TIME: 12/29/2018 08:00 (MEDICAL INSTRUMENT TECHNICIAN) NAME GRACIE GRIJALVA DATE OF : 1950 DATE OF ADMISSION: 12/23/2018 14:36 (MEDICAL INSTRUMENT TECHNICIAN) PHONE: AGE: 68 N# [id number] GENDER: Female ENCOUNTER PHYSICIAN: Dr. Jesse Martinez M.D. 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 EATING: Not assessed/no information CODE: - ORAL HYGIENE: ORAL HYGIENE - STEP 1: Does the patient complete the activity by him/herself with no assistance (physical, verbal/nonverbal cueing, setup/clean-up)? No. ORAL HYGIENE - STEP 2: Does the patient need only setup/clean-up assistance from one helper? No. ORAL HYGIENE - STEP 3: Does the patient need only verbal/nonverbal cueing or touching/steadying/contact guard assistance fro m one helper? Yes. 1. [id number] ADMISSION PERFORMANCE: Supervision or touching assistance CODE: 04 TOILETING HYGIENE: Not assessed/no information CODE: - BATHING: SHOWER/BATHE SELF - STEP 1: Does the patient complete the activity by him/herself with no assistance (physical, verbal/nonverbal cueing, setup/clean-up)? No. SHOWER/BATHE SELF - STEP 2: Does the patient need only setup/clean-up assistance from one helper? No. SHOWER/BATHE SELF - STEP 3: Does the patient need only verbal/nonverbal cueing or touching/steadying/contact guard assistance fro m one helper? Yes. 1. [id number] ADMISSION PERFORMANCE: Supervision or touching assistance CODE: 04 DRESSING - UPPER BODY: DRESSING - UPPER BODY - STEP 1: Does the patient complete the activity by him/herself with no assistance (physical, verbal/nonverbal cueing, setup/clean-up)? No. DRESSING - UPPER BODY - STEP 2: Does the patient need only setup/clean-up assistance from one helper? No. DRESSING - UPPER BODY - STEP 3: Does the patient need only verbal/nonverbal cueing or touching/steadying/contact guard assistance fro m one helper? Yes. 1. [id number] ADMISSION PERFORMANCE: Supervision or touching assistance CODE: 04 DRESSING - LOWER BODY: DRESSING - LOWER BODY - STEP 1: Does the patient complete the activity by him/herself with no assistance (physical, verbal/nonverbal cueing, setup/clean-up)? No. DRESSING - LOWER BODY - STEP 2: Does the patient need only setup/clean-up assistance from one helper? No. DRESSING - LOWER BODY - STEP 3: Does the patient need only verbal/nonverbal cueing or touching/steadying/contact guard assistance fro m one helper? No. DRESSING - LOWER BODY - STEP 4: Does the patient need physical assistance - for example lifting or trunk support from one helper - wi th the helper providing less than half of the effort? No. DRESSING - LOWER BODY - STEP 5: Does the patient need physical assistance - for example lifting or trunk support from one helper - wi th the helper providing more than half of the effort? Yes. 1. [id number] ADMISSION PERFORMANCE: Substantial/maximal assistance CODE: 02 PUTTING ON/TAKING OFF FOOTWEAR: FOOTWEAR - STEP 1: Does the patient complete the activity by him/herself with no assistance (physical, verbal/nonverbal cueing, setup/clean-up)? No. FOOTWEAR - STEP 2: Does the patient need only setup/clean-up assistance from one helper? No. FOOTWEAR - STEP 3: Does the patient need only verbal/nonverbal cueing or touching/steadying/contact guard assistance fro m one helper? No. FOOTWEAR - STEP 4: Does the patient need physical assistance - for example lifting or trunk support from one helper - wi th the helper providing less than half of the effort? No. FOOTWEAR - STEP 5: Does the patient need physical assistance - for example lifting or trunk support from one helper - wi th the helper providing more than half of the effort? Yes. 1. [id number] ADMISSION PERFORMANCE: Substantial/maximal assistance CODE: 02 DOES THE PATIENT USE A WHEELCHAIR/SCOOTER? CODE: EXPR INDICATE THE TYPE OF WHEELCHAIR/SCOOTER USED: CODE: EXPR INDICATE THE TYPE OF WHEELCHAIR/SCOOTER USED: CODE: EXPR BLADDER AND BOWEL: CODE: EXPR CODE: EXPR SIGNATURE PANEL: The following modified sections: 1. [id number] Admission Performance, 1. [id number] Admission Performance, 1. [id number] Admission Performance, 1. [id number] Admission Performance, 1. [id number] Admission Performance were [electronically] signed by DONOVAN De Jesus on TueDec 29 2018 16:10:03 T-0600 (Central Standard Time)
[2018-12-29] MEDS: ATORVASTATIN 80 MG TAB PO SCH (21:10)
[2018-12-29] MEDS: DOCUSATE NA/SENNA CONC 1 TAB PO PRN (21:10)
[2018-12-30] MEDS: NA CHLORIDE 0.9% 1,000 ML IV SCH ×2 (01:54→15:52)
--- NOTE | 2018-12-30 02:34 | FAST ---
SHIFT START DATE/TIME: 12/29/2018 19:00 (FIRER BOILER) SHIFT END DATE/TIME: 12/30/2018 07:00 (FIRER BOILER) NAME GRACIE GRIJALVA DATE OF : 1950 DATE OF ADMISSION: 12/23/2018 14:36 (FIRER BOILER) PHONE: AGE: 68 N# [id number] GENDER: Female ENCOUNTER PHYSICIAN: Dr. Jesse Martinez M.D. 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 EATING: Not assessed/no information CODE: - ORAL HYGIENE: Not assessed/no information CODE: - TOILETING HYGIENE: TOILETING HYGIENE - STEP 1: Does the patient complete the activity by him/herself with no assistance (physical, verbal/nonverbal cueing, setup/clean-up)? No. TOILETING HYGIENE - STEP 2: Does the patient need only setup/clean-up assistance from one helper? No. TOILETING HYGIENE - STEP 3: Does the patient need only verbal/nonverbal cueing or touching/steadying/contact guard assistance fro m one helper? No. TOILETING HYGIENE - STEP 4: Does the patient need physical assistance - for example lifting or trunk support from one helper - wi th the helper providing less than half of the effort? Yes. 1. [id number] ADMISSION PERFORMANCE: Partial/moderate assistance CODE: 03 BATHING: Not assessed/no information CODE: - DRESSING - UPPER BODY: Not assessed/no information CODE: - DRESSING - LOWER BODY: Not assessed/no information CODE: - PUTTING ON/TAKING OFF FOOTWEAR: Not assessed/no information CODE: - TRANSFERS: CAR: Not assessed/no information CODE: - WALK 10 FEET: Not assessed/no information CODE: - 1 STEP (CURB): Not assessed/no information CODE: - PICKING UP OBJECT: Not assessed/no information CODE: - DOES THE PATIENT USE A WHEELCHAIR/SCOOTER? CODE: EXPR WHEEL 50 FEET WITH TWO TURNS: Not assessed/no information CODE: - INDICATE THE TYPE OF WHEELCHAIR/SCOOTER USED: CODE: EXPR WHEEL 150 FEET: Not assessed/no information CODE: - INDICATE THE TYPE OF WHEELCHAIR/SCOOTER USED: CODE: EXPR BLADDER AND BOWEL: H350. BLADDER CONTINENCE (3-DAY ASSESSMENT PERIOD): Incontinent daily (at least once a day) CODE: 3 H400. BOWEL CONTINENCE (3-DAY ASSESSMENT PERIOD): Occasionally incontinent (one episode of bowel incontinence) CODE: 1
[2018-12-30] MEDS: METOPROLOL TAR 25 MG TAB PO SCH (05:11)
[2018-12-30 06:36] LABS: Potassium 3.8 mmol/L (3.5-5.1)
[2018-12-30] MEDS: INSULIN -REGULAR HUMAN 50 UNIT/0.5 ML ML SQ SCH ×4 (07:30→20:05)
[2018-12-30] MEDS: CYCLOBENZAPRINE 10 MG TAB PO SCH ×3 (08:34→19:16)
[2018-12-30] MEDS: hydroCHLOROthiazide 12.5 MG CAP PO SCH (08:35)
[2018-12-30] MEDS: levoFLOXacin 500 MG TAB PO SCH (08:35)
[2018-12-30] MEDS: NAPROXEN 250 MG TAB PO SCH ×2 (08:36→19:17)
[2018-12-30] MEDS: LOSARTAN POTASSIUM 50 MG TABLET PO SCH (08:36)
[2018-12-30] MEDS: POTASSIUM 25 MEQ EFFERV TAB PO SCH ×2 (08:37→19:16)
[2018-12-30] MEDS: DIPYRIDAMOLE/ASPIRIN CAP ER PO SCH ×2 (08:37→19:15)
[2018-12-30] MEDS: PROMOD 30 ML DOSE PO SCH ×2 (09:10→19:15)
[2018-12-30] MEDS: BISACODYL 10 MG RECTAL SUPP PR PRN (16:49)
[2018-12-30] MEDS ORDERED: FLEET ENEMA ADULT PR PRN (17:07)
[2018-12-30] MEDS: TOPIRAMATE 25 MG TAB PO SCH (19:16)
[2018-12-30] MEDS: DOCUSATE NA/SENNA CONC 1 TAB PO SCH (19:16)
[2018-12-30] MEDS: ATORVASTATIN 80 MG TAB PO SCH (19:16)
[2018-12-31] MEDS: NA CHLORIDE 0.9% 1,000 ML IV SCH ×2 (03:58→20:10)
[2018-12-31] MEDS: METOPROLOL TAR 25 MG TAB PO SCH (05:16)
[2018-12-31] MEDS: INSULIN -REGULAR HUMAN 50 UNIT/0.5 ML ML SQ SCH ×4 (07:02→20:14)
[2018-12-31] MEDS: POTASSIUM 25 MEQ EFFERV TAB PO SCH ×2 (07:53→20:10)
[2018-12-31] MEDS: DIPYRIDAMOLE/ASPIRIN CAP ER PO SCH ×2 (07:56→20:10)
[2018-12-31] MEDS: hydroCHLOROthiazide 12.5 MG CAP PO SCH (07:56)
[2018-12-31] MEDS: levoFLOXacin 500 MG TAB PO SCH (07:56)
[2018-12-31] MEDS: NAPROXEN 250 MG TAB PO SCH ×2 (07:57→20:14)
[2018-12-31] MEDS: CYCLOBENZAPRINE 10 MG TAB PO SCH ×3 (07:57→20:12)
[2018-12-31] MEDS: PROMOD 30 ML DOSE PO SCH ×3 (07:58→20:15)
[2018-12-31] MEDS: LOSARTAN POTASSIUM 50 MG TABLET PO SCH (07:58)
--- NOTE | 2018-12-31 10:35 | FAST ---
SHIFT START DATE/TIME: 12/31/2018 07:00 (PAYROLL REPRESENTATIVE) SHIFT END DATE/TIME: 12/31/2018 19:00 (PAYROLL REPRESENTATIVE) NAME GRACIE GRIJALVA DATE OF : 1950 DATE OF ADMISSION: 12/23/2018 14:36 (PAYROLL REPRESENTATIVE) PHONE: AGE: 68 N# [id number] GENDER: Female ENCOUNTER PHYSICIAN: Dr. Jesse Martinez M.D. 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 EATING: EATING - STEP 1: Does the patient complete the activity by him/herself with no assistance (physical, verbal/nonverbal cueing, setup/clean-up)? No. EATING - STEP 2: Does the patient need only setup/clean-up assistance from one helper? No. EATING - STEP 3: Does the patient need only verbal/nonverbal cueing or touching/steadying/contact guard assistance fro m one helper? Yes. 1. [id number] ADMISSION PERFORMANCE: Supervision or touching assistance CODE: 04 ORAL HYGIENE: ORAL HYGIENE - STEP 1: Does the patient complete the activity by him/herself with no assistance (physical, verbal/nonverbal cueing, setup/clean-up)? No. ORAL HYGIENE - STEP 2: Does the patient need only setup/clean-up assistance from one helper? No. ORAL HYGIENE - STEP 3: Does the patient need only verbal/nonverbal cueing or touching/steadying/contact guard assistance fro m one helper? Yes. 1. [id number] ADMISSION PERFORMANCE: Supervision or touching assistance CODE: 04 TOILETING HYGIENE: TOILETING HYGIENE - STEP 1: Does the patient complete the activity by him/herself with no assistance (physical, verbal/nonverbal cueing, setup/clean-up)? No. TOILETING HYGIENE - STEP 2: Does the patient need only setup/clean-up assistance from one helper? No. TOILETING HYGIENE - STEP 3: Does the patient need only verbal/nonverbal cueing or touching/steadying/contact guard assistance fro m one helper? Yes. 1. [id number] ADMISSION PERFORMANCE: Supervision or touching assistance CODE: 04 BATHING: Not assessed/no information CODE: - DRESSING - UPPER BODY: DRESSING - UPPER BODY - STEP 1: Does the patient complete the activity by him/herself with no assistance (physical, verbal/nonverbal cueing, setup/clean-up)? No. DRESSING - UPPER BODY - STEP 2: Does the patient need only setup/clean-up assistance from one helper? No. DRESSING - UPPER BODY - STEP 3: Does the patient need only verbal/nonverbal cueing or touching/steadying/contact guard assistance fro m one helper? Yes. 1. [id number] ADMISSION PERFORMANCE: Supervision or touching assistance CODE: 04 DRESSING - LOWER BODY: DRESSING - LOWER BODY - STEP 1: Does the patient complete the activity by him/herself with no assistance (physical, verbal/nonverbal cueing, setup/clean-up)? No. DRESSING - LOWER BODY - STEP 2: Does the patient need only setup/clean-up assistance from one helper? No. DRESSING - LOWER BODY - STEP 3: Does the patient need only verbal/nonverbal cueing or touching/steadying/contact guard assistance fro m one helper? Yes. 1. [id number] ADMISSION PERFORMANCE: Supervision or touching assistance CODE: 04 PUTTING ON/TAKING OFF FOOTWEAR: FOOTWEAR - STEP 1: Does the patient complete the activity by him/herself with no assistance (physical, verbal/nonverbal cueing, setup/clean-up)? No. FOOTWEAR - STEP 2: Does the patient need only setup/clean-up assistance from one helper? No. FOOTWEAR - STEP 3: Does the patient need only verbal/nonverbal cueing or touching/steadying/contact guard assistance fro m one helper? No. FOOTWEAR - STEP 4: Does the patient need physical assistance - for example lifting or trunk support from one helper - wi th the helper providing less than half of the effort? No. FOOTWEAR - STEP 5: Does the patient need physical assistance - for example lifting or trunk support from one helper - wi th the helper providing more than half of the effort? Yes. 1. [id number] ADMISSION PERFORMANCE: Substantial/maximal assistance CODE: 02 TRANSFERS: CAR: Not assessed/no information CODE: - WALK 10 FEET: Not assessed/no information CODE: - 1 STEP (CURB): Not assessed/no information CODE: - PICKING UP OBJECT: Not assessed/no information CODE: - DOES THE PATIENT USE A WHEELCHAIR/SCOOTER? Q1. DOES THE PATIENT USE A WHEELCHAIR/SCOOTER?: Yes CODE: 1 WHEEL 50 FEET WITH TWO TURNS: Not assessed/no information CODE: - INDICATE THE TYPE OF WHEELCHAIR/SCOOTER USED: RR1. INDICATE THE TYPE OF WHEELCHAIR/SCOOTER USED.: Manual CODE: 1 WHEEL 150 FEET: Not assessed/no information CODE: - INDICATE THE TYPE OF WHEELCHAIR/SCOOTER USED: SS1. INDICATE THE TYPE OF WHEELCHAIR/SCOOTER USED.: Manual CODE: 1 BLADDER AND BOWEL: H350. BLADDER CONTINENCE (3-DAY ASSESSMENT PERIOD): Incontinent daily (at least once a day) CODE: 3 H400. BOWEL CONTINENCE (3-DAY ASSESSMENT PERIOD): Always continent CODE: 0 SIGNATURE PANEL: The following modified sections: 1. [id number] Admission Performance, 1. [id number] Admission Performance, 1. [id number] Admission Performance, 1. [id number] Admission Performance, 1. [id number] Admission Performance, 1. [id number] Admission Performance, 1. [id number] Admission Performance, 1. [id number] Admission Performance , Q1. Does the patient use a wheelchair/scooter?, RR1. Indicate the type of wheelchair/scooter used., Code, SS1. Indicate the type of wheelchair/scooter used., H350. Bladder Continence (3-day assessment period), H400. Bowel Continence (3-day assessment period) were [electronically] signed by Susie Lassiter in, C.N.A. on TueDec 31 2018 10:34:22 T-0600 (Central Standard Time)
[2018-12-31] MEDS ORDERED: D50W 25 GM/50 ML VIAL IV PRN (19:00)
[2018-12-31] MEDS: ATORVASTATIN 80 MG TAB PO SCH (20:11)
[2018-12-31] MEDS: TOPIRAMATE 25 MG TAB PO SCH (20:12)
[2018-12-31] MEDS: DOCUSATE NA/SENNA CONC 1 TAB PO SCH (20:13)
--- NOTE | 2019-01-01 02:37 | FAST ---
SHIFT START DATE/TIME: 12/31/2018 19:00 (WASTE WATER WORKER) SHIFT END DATE/TIME: 01/01/2019 07:00 (WASTE WATER WORKER) NAME GRACIE GRIJALVA DATE OF : 1950 DATE OF ADMISSION: 12/23/2018 14:36 (WASTE WATER WORKER) PHONE: AGE: 68 N# [id number] GENDER: Female ENCOUNTER PHYSICIAN: Dr. Jesse Martinez M.D. 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 EATING: Not assessed/no information CODE: - ORAL HYGIENE: ORAL HYGIENE - STEP 1: Does the patient complete the activity by him/herself with no assistance (physical, verbal/nonverbal cueing, setup/clean-up)? No. ORAL HYGIENE - STEP 2: Does the patient need only setup/clean-up assistance from one helper? Yes. 1. [id number] ADMISSION PERFORMANCE: Setup or clean-up assistance CODE: 05 TOILETING HYGIENE: TOILETING HYGIENE - STEP 1: Does the patient complete the activity by him/herself with no assistance (physical, verbal/nonverbal cueing, setup/clean-up)? No. TOILETING HYGIENE - STEP 2: Does the patient need only setup/clean-up assistance from one helper? No. TOILETING HYGIENE - STEP 3: Does the patient need only verbal/nonverbal cueing or touching/steadying/contact guard assistance fro m one helper? No. TOILETING HYGIENE - STEP 4: Does the patient need physical assistance - for example lifting or trunk support from one helper - wi th the helper providing less than half of the effort? Yes. 1. [id number] ADMISSION PERFORMANCE: Partial/moderate assistance CODE: 03 BATHING: Not assessed/no information CODE: - DRESSING - UPPER BODY: Not assessed/no information CODE: - DRESSING - LOWER BODY: Not assessed/no information CODE: - PUTTING ON/TAKING OFF FOOTWEAR: Not assessed/no information CODE: - TRANSFERS: CAR: Not assessed/no information CODE: - WALK 10 FEET: Not assessed/no information CODE: - 1 STEP (CURB): Not assessed/no information CODE: - PICKING UP OBJECT: Not assessed/no information CODE: - DOES THE PATIENT USE A WHEELCHAIR/SCOOTER? CODE: EXPR WHEEL 50 FEET WITH TWO TURNS: Not assessed/no information CODE: - INDICATE THE TYPE OF WHEELCHAIR/SCOOTER USED: CODE: EXPR WHEEL 150 FEET: Not assessed/no information CODE: - INDICATE THE TYPE OF WHEELCHAIR/SCOOTER USED: CODE: EXPR BLADDER AND BOWEL: H350. BLADDER CONTINENCE (3-DAY ASSESSMENT PERIOD): Always incontinent CODE: 4 H400. BOWEL CONTINENCE (3-DAY ASSESSMENT PERIOD): Occasionally incontinent (one episode of bowel incontinence) CODE: 1
[2019-01-01] MEDS: METOPROLOL TAR 25 MG TAB PO SCH (05:05)
--- NOTE | 2019-01-01 07:22 | RAD REPORT ---
EXAM DESCRIPTION: RAD - Chest Single View - 01/01/2019 5:39 am CLINICAL HISTORY: Shortness of breath, suspected aspiration COMPARISON: December 24 TECHNIQUE: AP portable chest image was obtained 0534 hours . FINDINGS: Lung volumes are relatively low limiting assessment. No pulmonary edema, failure or volume overload findings. Right lung field is clear. Retrocardiac left base assessment is limited however, the opacification se en on prior study is not identified on this examination. Currently no aspiration pneumonia confirmed. Trachea is midline. Heart and vasculature are normal. No measurable pleural effusion and no pneumotho rax. No acute bony abnormality seen. No acute aortic findings suspected. IMPRESSION: Portable exam remains limited; however, left base is better aerated than on prior examin ation. No aspiration pneumonia confirmed on this study.
[2019-01-01] MEDS: INSULIN -REGULAR HUMAN 50 UNIT/0.5 ML ML SQ SCH ×4 (07:30→20:14)
[2019-01-01] MEDS: NAPROXEN 250 MG TAB PO SCH ×2 (08:00→20:13)
[2019-01-01] MEDS: LOSARTAN POTASSIUM 50 MG TABLET PO SCH (08:00)
[2019-01-01] MEDS: levoFLOXacin 500 MG TAB PO SCH ×2 (08:00→12:57)
[2019-01-01] MEDS: PROMOD 30 ML DOSE PO SCH ×2 (08:00→20:00)
[2019-01-01] MEDS: POTASSIUM 25 MEQ EFFERV TAB PO SCH ×2 (08:00→20:13)
[2019-01-01] MEDS: DIPYRIDAMOLE/ASPIRIN CAP ER PO SCH ×3 (08:00→20:13)
[2019-01-01] MEDS: hydroCHLOROthiazide 12.5 MG CAP PO SCH (08:00)
[2019-01-01] MEDS: CYCLOBENZAPRINE 10 MG TAB PO SCH ×3 (09:00→20:12)
[2019-01-01] MEDS: NA CHLORIDE 0.9% 1,000 ML IV SCH ×2 (10:19→22:00)
--- NOTE | 2019-01-01 10:31 | FAST ---
SHIFT START DATE/TIME: 01/01/2019 07:00 (PARK ACTIVITIES COORDINATOR) SHIFT END DATE/TIME: 01/01/2019 19:00 (PARK ACTIVITIES COORDINATOR) NAME GRACIE GRIJALVA DATE OF : 1950 DATE OF ADMISSION: 12/23/2018 14:36 (PARK ACTIVITIES COORDINATOR) PHONE: AGE: 68 N# [id number] GENDER: Female ENCOUNTER PHYSICIAN: Dr. Jesse Martinez M.D. 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 EATING: EATING - STEP 1: Does the patient complete the activity by him/herself with no assistance (physical, verbal/nonverbal cueing, setup/clean-up)? No. EATING - STEP 2: Does the patient need only setup/clean-up assistance from one helper? No. EATING - STEP 3: Does the patient need only verbal/nonverbal cueing or touching/steadying/contact guard assistance fro m one helper? No. EATING - STEP 4: Does the patient need physical assistance - for example lifting or trunk support from one helper - wi th the helper providing less than half of the effort? Yes. 1. [id number] ADMISSION PERFORMANCE: Partial/moderate assistance CODE: 03 ORAL HYGIENE: ORAL HYGIENE - STEP 1: Does the patient complete the activity by him/herself with no assistance (physical, verbal/nonverbal cueing, setup/clean-up)? No. ORAL HYGIENE - STEP 2: Does the patient need only setup/clean-up assistance from one helper? Yes. 1. [id number] ADMISSION PERFORMANCE: Setup or clean-up assistance CODE: 05 TOILETING HYGIENE: TOILETING HYGIENE - STEP 1: Does the patient complete the activity by him/herself with no assistance (physical, verbal/nonverbal cueing, setup/clean-up)? No. TOILETING HYGIENE - STEP 2: Does the patient need only setup/clean-up assistance from one helper? No. TOILETING HYGIENE - STEP 3: Does the patient need only verbal/nonverbal cueing or touching/steadying/contact guard assistance fro m one helper? Yes. 1. [id number] ADMISSION PERFORMANCE: Supervision or touching assistance CODE: 04 BATHING: SHOWER/BATHE SELF - STEP 1: Does the patient complete the activity by him/herself with no assistance (physical, verbal/nonverbal cueing, setup/clean-up)? No. SHOWER/BATHE SELF - STEP 2: Does the patient need only setup/clean-up assistance from one helper? No. SHOWER/BATHE SELF - STEP 3: Does the patient need only verbal/nonverbal cueing or touching/steadying/contact guard assistance fro m one helper? No. SHOWER/BATHE SELF - STEP 4: Does the patient need physical assistance - for example lifting or trunk support from one helper - wi th the helper providing less than half of the effort? Yes. 1. [id number] ADMISSION PERFORMANCE: Partial/moderate assistance CODE: 03 DRESSING - UPPER BODY: DRESSING - UPPER BODY - STEP 1: Does the patient complete the activity by him/herself with no assistance (physical, verbal/nonverbal cueing, setup/clean-up)? No. DRESSING - UPPER BODY - STEP 2: Does the patient need only setup/clean-up assistance from one helper? No. DRESSING - UPPER BODY - STEP 3: Does the patient need only verbal/nonverbal cueing or touching/steadying/contact guard assistance fro m one helper? Yes. 1. [id number] ADMISSION PERFORMANCE: Supervision or touching assistance CODE: 04 DRESSING - LOWER BODY: DRESSING - LOWER BODY - STEP 1: Does the patient complete the activity by him/herself with no assistance (physical, verbal/nonverbal cueing, setup/clean-up)? No. DRESSING - LOWER BODY - STEP 2: Does the patient need only setup/clean-up assistance from one helper? No. DRESSING - LOWER BODY - STEP 3: Does the patient need only verbal/nonverbal cueing or touching/steadying/contact guard assistance fro m one helper? No. DRESSING - LOWER BODY - STEP 4: Does the patient need physical assistance - for example lifting or trunk support from one helper - wi th the helper providing less than half of the effort? Yes. 1. [id number] ADMISSION PERFORMANCE: Partial/moderate assistance CODE: 03 PUTTING ON/TAKING OFF FOOTWEAR: Not assessed/no information CODE: - ROLL LEFT AND RIGHT: Not assessed/no information CODE: - SIT TO LYING: Not assessed/no information CODE: - LYING TO SITTING: Not assessed/no information CODE: - SIT TO STAND: SIT TO STAND - STEP 1: Does the patient complete the activity by him/herself with no assistance (physical, verbal/nonverbal cueing, setup/clean-up)? No. SIT TO STAND - STEP 2: Does the patient need only setup/clean-up assistance from one helper? No. SIT TO STAND - STEP 3: Does the patient need only verbal/nonverbal cueing or touching/steadying/contact guard assistance fro m one helper? No. SIT TO STAND - STEP 4: Does the patient need physical assistance - for example lifting or trunk support from one helper - wi th the helper providing less than half of the effort? Yes. 1. [id number] ADMISSION PERFORMANCE: Partial/moderate assistance CODE: 03 TRANSFERS: BED, CHAIR: CHAIR/[id number] TRANSFER - STEP 1: Does the patient complete the activity by him/herself with no assistance (physical, verbal/nonverbal cueing, setup/clean-up)? No. CHAIR/[id number] TRANSFER - STEP 2: Does the patient need only setup/clean-up assistance from one helper? No. CHAIR/[id number] TRANSFER - STEP 3: Does the patient need only verbal/nonverbal cueing or touching/steadying/contact guard assistance fro m one helper? No. CHAIR/[id number] TRANSFER - STEP 4: Does the patient need physical assistance - for example lifting or trunk support from one helper - wi th the helper providing less than half of the effort? Yes. 1. [id number] ADMISSION PERFORMANCE: Partial/moderate assistance CODE: 03 TRANSFER TOILET: TOILET TRANSFER - STEP 1: Does the patient complete the activity by him/herself with no assistance (physical, verbal/nonverbal cueing, setup/clean-up)? No. TOILET TRANSFER - STEP 2: Does the patient need only setup/clean-up assistance from one helper? No. TOILET TRANSFER - STEP 3: Does the patient need only verbal/nonverbal cueing or touching/steadying/contact guard assistance fro m one helper? No. TOILET TRANSFER - STEP 4: Does the patient need physical assistance - for example lifting or trunk support from one helper - wi th the helper providing less than half of the effort? Yes. 1. [id number] ADMISSION PERFORMANCE: Partial/moderate assistance CODE: 03 TRANSFERS: CAR: Not assessed/no information CODE: - WALK 10 FEET: Not assessed/no information CODE: - 1 STEP (CURB): Not assessed/no information CODE: - PICKING UP OBJECT: Not assessed/no information CODE: - DOES THE PATIENT USE A WHEELCHAIR/SCOOTER? CODE: EXPR WHEEL 50 FEET WITH TWO TURNS: Not assessed/no information CODE: - INDICATE THE TYPE OF WHEELCHAIR/SCOOTER USED: CODE: EXPR WHEEL 150 FEET: Not assessed/no information CODE: - INDICATE THE TYPE OF WHEELCHAIR/SCOOTER USED: CODE: EXPR BLADDER AND BOWEL: H350. BLADDER CONTINENCE (3-DAY ASSESSMENT PERIOD): Incontinent daily (at least once a day) CODE: 3 H400. BOWEL CONTINENCE (3-DAY ASSESSMENT PERIOD): Occasionally incontinent (one episode of bowel incontinence) CODE: 1 SIGNATURE PANEL: The following modified sections: 1. [id number] Admission Performance, 1. [id number] Admission Performance, 1. [id number] Admission Performance, 1. [id number] Admission Performance, 1. [id number] Admission Performance, 1. [id number] Admission Performance, 1. [id number] Admission Performance, 1. [id number] Admission Performance , 1. [id number] Admission Performance, 1. [id number] Admission Performance, 1. [id number] Admission Performanc e, Code, H350. Bladder Continence (3-day assessment period), H400. Bowel Continence (3-day assessment period) were [electronically] signed by Praful Gaston on TueJan 01 2019 10:30:03 GMT-0600 ([place])
[2019-01-01] MEDS ORDERED: D50W 25 GM/50 ML SYRINGE/VIAL IV PRN (10:40)
--- NOTE | 2019-01-01 12:22 | RAD REPORT ---
EXAM DESCRIPTION: RAD - Barium Swallow Modified - 01/01/2019 12:13 pm CLINICAL HISTORY: Dysphagia COMPARISON: Barium Swallow Modified dated 12/25/2018 TECHNIQUE: The patient was given liquid, semi-solid and solid forms of barium. Lateral view fluorosc opic imaging was performed in conjunction with speech pathology service. FINDINGS: Aspiration : no cough with thin by cup other: premature loss of thin , nectar , honey and puree, head turn to left effective strategy with t sp thin (no pen/asp) Total fluoroscopy time: 2 minutes and 5 seconds
--- NOTE | 2019-01-01 17:34 | R.PN ---
ENCOUNTER DATE AND TIME: 01/01/2019 17:28 (JET PIERCER OPERATOR) NAME GRACIE VALADEZ DATE OF : 1950 DATE OF ADMISSION: 12/23/2018 14:36 (JET PIERCER OPERATOR) Acute to subacute infarct Right Lentiform Nucleus and Adjacent CaudateCHIEF COMPLAINT: Dysarthria, dysphagia, left hemiparesis, incoordination. SUBJECTIVE: Pt denied any Shortness of Breath. Pt denied any depression. Her chest x-ray showed likely aspiration pneumonia. Finished levaquin 500 mg daily for pneumonia. She requires verbal-tactile cues for accurate positioning and timing for proper strategy. She tolerat ed single sips of nectar thickened liquids. Hgb 12.0, glucose 62 to 101. Propelled wheelchair 250' with standby assistance. Labs reviewed and are stable. She is making fair overall progress with physical, occupational. She fa iled a repeat barium swallow study except pureed diet. She has very poor labial, lingual and guttural sounds VITAL SIGNS Temperature: 97.4 F SBP/DBP: 108/57 Pulse: 69 Resp: 14 MEDICATION ALLERGIES: No Known Drug Allergies (NKDA) ENVIRONMENTAL ALLERGIES: None Known - Substance Allergies None Known - Other Allergies None Known NURSING: - Shower allowing shower - Bladder care per protocol - Skin care per protocol PRECAUTIONS: - Weight Bearing Precaution WBAT left LE ACTIVITIES OOB only with supervision THERAPIES: - Occupational Therapy Cognitive Retraining. Visual Perceptual Training. - Dietary and Nutrition Adequate Nutrition. Nutritional Education. Nutritional Supplements. - Speech Therapy Cognitive Training. Dysphagia Therapy. Expressive Language Skills. Memory Strategies. Receptive Langu age Skills. Speech Intelligibility Training. PHYSICAL EXAM - Gen Alert and awake Lying in bed No apparent distress Oriented to: person, time, and place - Skin No skin breakdown. Normacephalic - Eyes No abnormalities - ENMT No abnormalities - Neck No abnormalities - CVS RRR - Chest Clear - Resp No wheezing - Abd + bowel sounds - GI Non distended Deferred - No abnormalities - Ext No significant edema - MSK 3+/5 weakness in left upper and 4+/5 in left lower extremity - Neuro 3+/5 weakness in left upper and 4+/5 in left lower extremity - Psych No abnormalities ASSESSMENT: Pt. is a 68 yo Right-handed black female.On 12/19/2018 Pt. presented to [facility] with sudden on set of left-side weakness.On 12/19/2018 she was admitted to [facility] with diagnosis Acute to julian bacute infarct Right Lentiform Nucleus and Adjacent Caudate.Her impairment category is Stroke 01 - L eft Body (Right Brain) (01.1).Pre-morbidly, Pt. was independent/mod-I in Locomotion, Safety Awareness , Balance, Social Cognition, Transfers Control, Sphincter Control, Self-Care, and Endurance; and she had good Balance, Endurance, Locomotion, Transfers Control, Communication, and Social Cognition.Curre ntly, she has deficits of Locomotion, Safety Awareness, Balance, Transfers Control, Self-Care, and Co mmunication.Pt. is now referred to [facility] for acute in-patient rehabilitat ion in order to maximize patient's functional independence in activities of daily living, strength, R OM, and mobility.- Rehab Goal Patient has realistic goal of being discharged at assistance level 6-Erica to reside at Home with Fam elis/Relatives. MDM/PLAN: - Physical Therapy Gait dysfunction - to improve, our physical therapists will perform initial evaluation of pt's statu s upon admission and devise an individualized program for Gait Training, and Wheel Chair mobility Inability to transfer - to improve, our physical therapists will perform initial evaluation of pt's status upon admission and devise an individualized program for Bed mobility Need for home safety evaluation - to improve, our physical therapists will perform initial evaluatio n of pt's status upon admission and devise an individualized program for Home Evaluation Need in caregiver upon discharge - to improve, our physical therapists will perform initial evaluati on of pt's status upon admission and devise an individualized program for Caregiver Training Edema - to improve, our physical therapists will perform initial evaluation of pt's status upon admi ssion and devise an individualized program for Elevation Training, and Lymphedema Therapy New precaution - to improve, our physical therapists will perform initial evaluation of pt's status upon admission and devise an individualized program for Patient precaution education Poor balance - to improve, our physical therapists will perform initial evaluation of pt's status up on admission and devise an individualized program for Balance Training Weakness - to improve, our physical therapists will perform initial evaluation of pt's status upon a dmission and devise an individualized program for Aquatic Therapy, Neuromuscular Reeducation, and Str engthening Achieving independence - to improve, our physical therapists will perform initial evaluation of pt's status upon admission and devise an individualized program for Community Reintegration Activities - Occupational Therapy ADL deficits - to improve, our occupation therapists will perform initial evaluation of pt's status upon admission and devise an individualized program for Bathing, Bed mobility, Community Reintegratio n, Cooking, Dressing, Eating, Fine Motor Skills, Grooming, Homemaking, Kitchen Mobility, Laundry, Pat ient Education, Safety Awareness, Splinting - Positioning, Transfers(Toilet, Tub, Shower), and Wheel Chair Management Need for respiratory care technician - to improve, our occupation therapists will perform initial evaluation of pt's status upon admission and devise an individualized program for Caregiver Training Weakness - to improve, our occupation therapists will perform initial evaluation of pt's status upon admission and devise an individualized program for Aquatic Therapy, Balance, Endurance, UE ROM, and UE strengthening - Other See attached MAR (Medication Administration Record) [email or web address].pdf See attached MAR (Medication Administration Record) - Diet Type Continue Regular - Diet - Liquid Texture Continue Thin - Tube Feed Continue N/A - Bladder care per protocol - Weight Bearing Precaution WBAT left LE - Skin care per protocol - Diet - Solid Texture Continue Regular Continue Pureed - Shower allowing shower for Dementia, TBI, Stroke, or others FUNCTIONAL STATUS: UPDATED AT WEEKLY TEAM CONFERENCE - Bladder Same accident frequency: 7-Ind - No accidents in the past 7 days - Bowel Same accident frequency: 7-Ind - No accidents in the past 7 days - Walking Same score based on distance walked: 1(<=50ft) - Wheelchair Same score based on distance traveled: 0(N/A) FUNCTIONAL STATUS: - Self-Care A. Eating modA B. Grooming sup C. Bathing Kiersten D. Dressing - Upper Kiersten E. Dressing - Lower Kiersten F. Toileting modA - Sphincter Control G. Bladder control sup H. Bowel control sup - Transfers Control I. Bed/Chair/Wheelchair modA J. Toilet modA K. Tub/Shower modA - Locomotion L. Walk/Wheelchair (W) modA M. Stairs maxA - Communication N. Comprehension (B) sup O. Expression (B) modA - Social Cognition P. Social Interaction sup Q. Problem Solving sup R. Memory Ind - Endurance Good - Balance Good - Safety Awareness Good QI SCORES: - Self-Care A. Eating 03-Partial/moderate assistance B. Oral hygiene 03-Partial/moderate assistance C. Toileting hygiene 03-Partial/moderate assistance E. Shower/bathe self 03-Partial/moderate assistance F. Upper body dressing 03-Partial/moderate assistance G. Lower body dressing 03-Partial/moderate assistance H. Putting on/taking off footwear 02-Substantial/maximal assistance - Mobility A. Roll left and right 03-Partial/moderate assistance B. Sit to lying 03-Partial/moderate assistance C. Lying to sitting on side of bed 03-Partial/moderate assistance D. Sit to stand 04-Supervision or touching assistance E. Chair/[id number] transfer 04-Supervision or touching assistance F. Toilet transfer 03-Partial/moderate assistance G. Car transfer 88-Not attempted due to medical condition or safety concerns I. Walk 10 feet 04-Supervision or touching assistance J. Walk 50 feet with two turns 88-Not attempted due to medical condition or safety concerns K. Walk 150 feet 88-Not attempted due to medical condition or safety concerns L. Walking 10 feet on uneven surfaces 88-Not attempted due to medical condition or safety concerns M. 1 step (curb) 88-Not attempted due to medical condition or safety concerns N. 4 steps 88-Not attempted due to medical condition or safety concerns O. 12 steps 88-Not attempted due to medical condition or safety concerns P. Picking up object 88-Not attempted due to medical condition or safety concerns R. Wheel 50 feet with two turns 88-Not attempted due to medical condition or safety concerns S. Wheel 150 feet 88-Not attempted due to medical condition or safety concerns - Bladder and Bowel Bladder continence 0-Always continent Bowel continence 0-Always continent - Endurance Fair - Balance Fair - Safety Awareness Fair CURRENT FUNC. DEFICITS: Self-Care, Mobility, Endurance, Balance, and Safety Awareness SIGNATURE PANEL: (JET PIERCER OPERATOR)
[2019-01-01] MEDS: DOCUSATE NA/SENNA CONC 1 TAB PO SCH (20:13)
[2019-01-01] MEDS: ATORVASTATIN 80 MG TAB PO SCH (20:13)
[2019-01-01] MEDS: TOPIRAMATE 25 MG TAB PO SCH (20:14)
[2019-01-02] MEDS: NA CHLORIDE 0.9% 1,000 ML IV SCH (05:24)
[2019-01-02] MEDS: METOPROLOL TAR 25 MG TAB PO SCH (05:28)
[2019-01-02 06:30] LABS: Potassium 3.5 mmol/L (3.5-5.1)
[2019-01-02] MEDS: INSULIN -REGULAR HUMAN 50 UNIT/0.5 ML ML SQ SCH ×4 (07:30→19:32)
[2019-01-02] MEDS: NAPROXEN 250 MG TAB PO SCH (08:00)
[2019-01-02] MEDS: PROMOD 30 ML DOSE PO SCH ×2 (08:00→19:31)
[2019-01-02] MEDS: CYCLOBENZAPRINE 10 MG TAB PO SCH (08:37)
[2019-01-02] MEDS: DIPYRIDAMOLE/ASPIRIN CAP ER PO SCH ×2 (08:38→19:31)
[2019-01-02] MEDS: LOSARTAN POTASSIUM 50 MG TABLET PO SCH (08:38)
[2019-01-02] MEDS: levoFLOXacin 500 MG TAB PO SCH (08:39)
[2019-01-02] MEDS: POTASSIUM 25 MEQ EFFERV TAB PO SCH ×2 (08:39→19:30)
--- NOTE | 2019-01-02 10:19 | FAST ---
SHIFT START DATE/TIME: 01/02/2019 07:00 (AUTO BUMPER STRAIGHTENER) SHIFT END DATE/TIME: 01/02/2019 19:00 (AUTO BUMPER STRAIGHTENER) NAME GRACIE GRIJALVA DATE OF : 1950 DATE OF ADMISSION: 12/23/2018 14:36 (AUTO BUMPER STRAIGHTENER) PHONE: AGE: 68 N# [id number] GENDER: Female ENCOUNTER PHYSICIAN: Dr. Jesse Martinez M.D. 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 EATING: EATING - STEP 1: Does the patient complete the activity by him/herself with no assistance (physical, verbal/nonverbal cueing, setup/clean-up)? No. EATING - STEP 2: Does the patient need only setup/clean-up assistance from one helper? No. EATING - STEP 3: Does the patient need only verbal/nonverbal cueing or touching/steadying/contact guard assistance fro m one helper? Yes. 1. [id number] ADMISSION PERFORMANCE: Supervision or touching assistance CODE: 04 ORAL HYGIENE: ORAL HYGIENE - STEP 1: Does the patient complete the activity by him/herself with no assistance (physical, verbal/nonverbal cueing, setup/clean-up)? No. ORAL HYGIENE - STEP 2: Does the patient need only setup/clean-up assistance from one helper? No. ORAL HYGIENE - STEP 3: Does the patient need only verbal/nonverbal cueing or touching/steadying/contact guard assistance fro m one helper? Yes. 1. [id number] ADMISSION PERFORMANCE: Supervision or touching assistance CODE: 04 TOILETING HYGIENE: TOILETING HYGIENE - STEP 1: Does the patient complete the activity by him/herself with no assistance (physical, verbal/nonverbal cueing, setup/clean-up)? No. TOILETING HYGIENE - STEP 2: Does the patient need only setup/clean-up assistance from one helper? No. TOILETING HYGIENE - STEP 3: Does the patient need only verbal/nonverbal cueing or touching/steadying/contact guard assistance fro m one helper? Yes. 1. [id number] ADMISSION PERFORMANCE: Supervision or touching assistance CODE: 04 BATHING: Not assessed/no information CODE: - DRESSING - UPPER BODY: DRESSING - UPPER BODY - STEP 1: Does the patient complete the activity by him/herself with no assistance (physical, verbal/nonverbal cueing, setup/clean-up)? No. DRESSING - UPPER BODY - STEP 2: Does the patient need only setup/clean-up assistance from one helper? No. DRESSING - UPPER BODY - STEP 3: Does the patient need only verbal/nonverbal cueing or touching/steadying/contact guard assistance fro m one helper? Yes. 1. [id number] ADMISSION PERFORMANCE: Supervision or touching assistance CODE: 04 DRESSING - LOWER BODY: DRESSING - LOWER BODY - STEP 1: Does the patient complete the activity by him/herself with no assistance (physical, verbal/nonverbal cueing, setup/clean-up)? No. DRESSING - LOWER BODY - STEP 2: Does the patient need only setup/clean-up assistance from one helper? No. DRESSING - LOWER BODY - STEP 3: Does the patient need only verbal/nonverbal cueing or touching/steadying/contact guard assistance fro m one helper? Yes. 1. [id number] ADMISSION PERFORMANCE: Supervision or touching assistance CODE: 04 PUTTING ON/TAKING OFF FOOTWEAR: Not assessed/no information CODE: - ROLL LEFT AND RIGHT: Not assessed/no information CODE: - SIT TO LYING: Not assessed/no information CODE: - LYING TO SITTING: Not assessed/no information CODE: - SIT TO STAND: SIT TO STAND - STEP 1: Does the patient complete the activity by him/herself with no assistance (physical, verbal/nonverbal cueing, setup/clean-up)? No. SIT TO STAND - STEP 2: Does the patient need only setup/clean-up assistance from one helper? No. SIT TO STAND - STEP 3: Does the patient need only verbal/nonverbal cueing or touching/steadying/contact guard assistance fro m one helper? No. SIT TO STAND - STEP 4: Does the patient need physical assistance - for example lifting or trunk support from one helper - wi th the helper providing less than half of the effort? Yes. 1. [id number] ADMISSION PERFORMANCE: Partial/moderate assistance CODE: 03 TRANSFERS: BED, CHAIR: CHAIR/[id number] TRANSFER - STEP 1: Does the patient complete the activity by him/herself with no assistance (physical, verbal/nonverbal cueing, setup/clean-up)? No. CHAIR/[id number] TRANSFER - STEP 2: Does the patient need only setup/clean-up assistance from one helper? No. CHAIR/[id number] TRANSFER - STEP 3: Does the patient need only verbal/nonverbal cueing or touching/steadying/contact guard assistance fro m one helper? No. CHAIR/[id number] TRANSFER - STEP 4: Does the patient need physical assistance - for example lifting or trunk support from one helper - wi th the helper providing less than half of the effort? Yes. 1. [id number] ADMISSION PERFORMANCE: Partial/moderate assistance CODE: 03 TRANSFER TOILET: TOILET TRANSFER - STEP 1: Does the patient complete the activity by him/herself with no assistance (physical, verbal/nonverbal cueing, setup/clean-up)? No. TOILET TRANSFER - STEP 2: Does the patient need only setup/clean-up assistance from one helper? No. TOILET TRANSFER - STEP 3: Does the patient need only verbal/nonverbal cueing or touching/steadying/contact guard assistance fro m one helper? No. TOILET TRANSFER - STEP 4: Does the patient need physical assistance - for example lifting or trunk support from one helper - wi th the helper providing less than half of the effort? Yes. 1. [id number] ADMISSION PERFORMANCE: Partial/moderate assistance CODE: 03 TRANSFERS: CAR: Not assessed/no information CODE: - WALK 10 FEET: Not assessed/no information CODE: - 1 STEP (CURB): Not assessed/no information CODE: - PICKING UP OBJECT: Not assessed/no information CODE: - DOES THE PATIENT USE A WHEELCHAIR/SCOOTER? CODE: EXPR WHEEL 50 FEET WITH TWO TURNS: Not assessed/no information CODE: - INDICATE THE TYPE OF WHEELCHAIR/SCOOTER USED: CODE: EXPR WHEEL 150 FEET: Not assessed/no information CODE: - INDICATE THE TYPE OF WHEELCHAIR/SCOOTER USED: CODE: EXPR BLADDER AND BOWEL: H350. BLADDER CONTINENCE (3-DAY ASSESSMENT PERIOD): Incontinent less than daily (e.g., once or twice during the 3-day assessment period) CODE: 2 H400. BOWEL CONTINENCE (3-DAY ASSESSMENT PERIOD): Occasionally incontinent (one episode of bowel incontinence) CODE: 1 SIGNATURE PANEL: The following modified sections: 1. [id number] Admission Performance, 1. [id number] Admission Performance, 1. [id number] Admission Performance, 1. [id number] Admission Performance, 1. [id number] Admission Performance, 1. BX2807e Admission Performance, 1. [id number] Admission Performance, 1. [id number] Admission Performance , 1. [id number] Admission Performance, 1. [id number] Admission Performance, Code, H350. Bladder Continence (3-day assessment period), H350. Bladder Continence (3-day assessment period), H400. Bowel Continence (3-day assessment period) were [electronically] signed by Praful Gaston on TueJan 02 2019 10:17:50 GMT -0600 (Central Standard Time)
--- NOTE | 2019-01-02 15:14 | FAST ---
ENCOUNTER DATE AND TIME: 01/02/2019 08:00 (SLOPE TENDER) NAME GRACIE GRIJALVA DATE OF : 1950 DATE OF ADMISSION: 12/23/2018 14:36 (SLOPE TENDER) PHONE: AGE: 68 N# [id number] GENDER: Female ENCOUNTER PHYSICIAN: Dr. Jesse Martinez M.D. 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 EATING: Not assessed/no information CODE: - ORAL HYGIENE: ORAL HYGIENE - STEP 1: Does the patient complete the activity by him/herself with no assistance (physical, verbal/nonverbal cueing, setup/clean-up)? No. ORAL HYGIENE - STEP 2: Does the patient need only setup/clean-up assistance from one helper? Yes. 1. [id number] ADMISSION PERFORMANCE: Setup or clean-up assistance CODE: 05 TOILETING HYGIENE: Not assessed/no information CODE: - BATHING: SHOWER/BATHE SELF - STEP 1: Does the patient complete the activity by him/herself with no assistance (physical, verbal/nonverbal cueing, setup/clean-up)? No. SHOWER/BATHE SELF - STEP 2: Does the patient need only setup/clean-up assistance from one helper? No. SHOWER/BATHE SELF - STEP 3: Does the patient need only verbal/nonverbal cueing or touching/steadying/contact guard assistance fro m one helper? Yes. 1. [id number] ADMISSION PERFORMANCE: Supervision or touching assistance CODE: 04 DRESSING - UPPER BODY: DRESSING - UPPER BODY - STEP 1: Does the patient complete the activity by him/herself with no assistance (physical, verbal/nonverbal cueing, setup/clean-up)? No. DRESSING - UPPER BODY - STEP 2: Does the patient need only setup/clean-up assistance from one helper? Yes. 1. [id number] ADMISSION PERFORMANCE: Setup or clean-up assistance CODE: 05 DRESSING - LOWER BODY: DRESSING - LOWER BODY - STEP 1: Does the patient complete the activity by him/herself with no assistance (physical, verbal/nonverbal cueing, setup/clean-up)? No. DRESSING - LOWER BODY - STEP 2: Does the patient need only setup/clean-up assistance from one helper? No. DRESSING - LOWER BODY - STEP 3: Does the patient need only verbal/nonverbal cueing or touching/steadying/contact guard assistance fro m one helper? No. DRESSING - LOWER BODY - STEP 4: Does the patient need physical assistance - for example lifting or trunk support from one helper - wi th the helper providing less than half of the effort? No. DRESSING - LOWER BODY - STEP 5: Does the patient need physical assistance - for example lifting or trunk support from one helper - wi th the helper providing more than half of the effort? Yes. 1. [id number] ADMISSION PERFORMANCE: Substantial/maximal assistance CODE: 02 PUTTING ON/TAKING OFF FOOTWEAR: FOOTWEAR - STEP 1: Does the patient complete the activity by him/herself with no assistance (physical, verbal/nonverbal cueing, setup/clean-up)? No. FOOTWEAR - STEP 2: Does the patient need only setup/clean-up assistance from one helper? No. FOOTWEAR - STEP 3: Does the patient need only verbal/nonverbal cueing or touching/steadying/contact guard assistance fro m one helper? No. FOOTWEAR - STEP 4: Does the patient need physical assistance - for example lifting or trunk support from one helper - wi th the helper providing less than half of the effort? No. FOOTWEAR - STEP 5: Does the patient need physical assistance - for example lifting or trunk support from one helper - wi th the helper providing more than half of the effort? Yes. 1. [id number] ADMISSION PERFORMANCE: Substantial/maximal assistance CODE: 02 DOES THE PATIENT USE A WHEELCHAIR/SCOOTER? CODE: EXPR INDICATE THE TYPE OF WHEELCHAIR/SCOOTER USED: CODE: EXPR INDICATE THE TYPE OF WHEELCHAIR/SCOOTER USED: CODE: EXPR BLADDER AND BOWEL: CODE: EXPR CODE: EXPR SIGNATURE PANEL: The following modified sections: 1. [id number] Admission Performance, 1. [id number] Admission Performance, 1. [id number] Admission Performance, 1. IJ1088w Admission Performance, 1. [id number] Admission Performance, 1. NM3620i Admission Performance were [electronically] signed by DONOVAN De Jesus on TueJan 02 2019 15:13:35 T-0600 (Central Standard Time)
[2019-01-02] MEDS: TOPIRAMATE 25 MG TAB PO SCH (19:31)
[2019-01-02] MEDS: ATORVASTATIN 80 MG TAB PO SCH (19:31)
[2019-01-02] MEDS: DOCUSATE NA/SENNA CONC 1 TAB PO SCH (19:31)
[2019-01-03] MEDS: METOPROLOL TAR 25 MG TAB PO SCH (05:06)
[2019-01-03 06:35] LABS: Absolute Lymphocytes (CBC) 1.1 K/uL (0.7-4.9); Basophils % 0.6 % (0-1.3); Hematocrit 34.4 % (36.0-45.0); Lymphocytes % 12.9 % (15.3-44.8); MPV 9.4 fL (7.6-11.3)
[2019-01-03 06:57] LABS: Albumin 3.2 g/dL (3.4-5.0); Magnesium 2.1 mg/dL (1.8-2.4); Potassium 3.6 mmol/L (3.5-5.1); Prealbumin 20.3 mg/dL (20-40)
[2019-01-03] MEDS: INSULIN -REGULAR HUMAN 50 UNIT/0.5 ML ML SQ SCH ×4 (07:30→21:00)
[2019-01-03] MEDS: PROMOD 30 ML DOSE PO SCH ×2 (08:00→20:00)
[2019-01-03] MEDS: CYCLOBENZAPRINE 10 MG TAB PO PRN (08:26)
[2019-01-03] MEDS: POTASSIUM 25 MEQ EFFERV TAB PO SCH ×2 (08:26→20:41)
[2019-01-03] MEDS: LOSARTAN POTASSIUM 50 MG TABLET PO SCH (08:27)
--- NOTE | 2019-01-03 09:39 | P.RH.PN ---
Estimated Length of Stay: 25 Expected Discharge Date: 01/14/19 Discharge Disposition Plan: Home Family Support: Yes Fdc Goal: Mobility, Transfers, Self Care Vital Signs: Last Vital Signs Temp 97.4 F 01/03/19 06:58 Pulse 64 01/03/19 06:58 Resp 18 01/03/19 06:58 BP 148/68 H 01/03/19 06:58 Pulse Ox 98 01/03/19 06:58 Laboratory: Laboratory Last Values WBC 8.3 K/uL (4.3-10.9) 01/03/19 06:20 RBC 4.20 M/uL (3.86-4.86) 01/03/19 06:20 Hgb 11.6 g/dL (12.0-15.0) L 01/03/19 06:20 Hct 34.4 % (36.0-45.0) L 01/03/19 06:20 MCV 81.8 fL (80-100) 01/03/19 06:20 MCH 27.7 pg (27.0-35.0) 01/03/19 06:20 MCHC 33.9 g/dL (32.0-36.0) 01/03/19 06:20 RDW 14.7 % (12.1-15.2) 01/03/19 06:20 Plt Count 243 K/uL (152-406) 01/03/19 06:20 MPV 9.4 fL (7.6-11.3) 01/03/19 06:20 Neutrophils % 79.0 % (41.7-73.7) H 01/03/19 06:20 Lymphocytes % 12.9 % (15.3-44.8) L 01/03/19 06:20 Monocytes % 4.0 % (3.3-12.3) 01/03/19 06:20 Eosinophils % 3.5 % (0-4.4) 01/03/19 06:20 Basophils % 0.6 % (0-1.3) 01/03/19 06:20 Absolute Neutrophils 6.6 K/uL (1.8-8.0) 01/03/19 06:20 Absolute Lymphocytes 1.1 K/uL (0.7-4.9) 01/03/19 06:20 Absolute Monocytes 0.3 K/uL (0.1-1.3) 01/03/19 06:20 Absolute Eosinophils 0.3 K/uL (0-0.5) 01/03/19 06:20 Absolute Basophils 0.0 K/uL (0-0.5) 01/03/19 06:20 Sodium 145 mmol/L (136-145) 01/03/19 06:26 Potassium 3.6 mmol/L (3.5-5.1) 01/03/19 06:26 Chloride 113 mmol/L (98-107) H 01/03/19 06:26 Carbon Dioxide 26 mmol/L (21-32) 01/03/19 06:26 BUN 13 mg/dL (7-18) 01/03/19 06:26 Creatinine 1.14 mg/dL (0.55-1.3) 01/03/19 06:26 Estimated GFR 58 mL/min (=/>90) L 01/03/19 06:26 Glucose 107 mg/dL (74-106) H 01/03/19 06:26 POC Glucose 107 mg/dl (65-120) 01/03/19 07:02 Calcium 8.9 mg/dL (8.5-10.1) 01/03/19 06:26 Magnesium 2.1 mg/dL (1.8-2.4) 01/03/19 06:26 Albumin 3.2 g/dL (3.4-5.0) L 01/03/19 06:26 Prealbumin 20.3 mg/dL (20-40) 01/03/19 06:26 Urine Color Yellow 12/23/18 15:20 Urine Appearance Clear 12/23/18 15:20 Urine pH 5.5 (5.0-7.0) 12/23/18 15:20 Ur Specific [place] 1.025 (1.005-1.030) 12/23/18 15:20 Urine Ketones Negative (NEG) 12/23/18 15:20 Urine Blood 2+ (NEG) H 12/23/18 15:20 Urine Nitrite Negative (NEG) 12/23/18 15:20 Urine Bilirubin Negative (NEG) 12/23/18 15:20 Urine Urobilinogen 0.2 mg/dL (0.2-1.0) 12/23/18 15:20 Ur Leukocyte Esterase Negative (NEG) 12/23/18 15:20 Urine RBC <5 /HPF (NONE SEEN) 12/23/18 15:20 Urine WBC <5 /HPF (<5) 12/23/18 15:20 Ur Squamous Epith Cells <5 /HPF (NONE SEEN) 12/23/18 15:20 Calcium Oxalate Crystal Many (NONE SEEN) H 12/23/18 15:20 Urine Bacteria <20 /HPF (<20) 12/23/18 15:20 Urine Culture Reflexed Not needed 12/23/18 15:20 Urine Glucose Negative (NEG) 12/23/18 15:20 Urine Total Protein Trace (NEG) 12/23/18 15:20 Weight: 210 lb 4.8 oz Wound Present: No Closed Surgical Incision Present: Yes Negative Pressure Wound Therapy Present: No Physician Update: Labs reviewed and are stable. She is at a standby assistance with stairs and gait. She is impulsive and requires help for awareness of safety. She has severe dysarthria. She communicates better in writing and would benefit with a communication device. She has severe dysphagia and rocks her head back to get food down. She will likely need a PEG tube due to severe dysphagia. Medical Issues: Patient is incontinent less than daily with bladder and occasional incontinent with bowel. Functional Improvement: Patient has met all short-term goals at this time and is progress toward long-term goals. Patient continues to present w/ impulsivity. VC given for correction. Speech Therapy Update: Patient cont. to present with severe-profound dysarthria. Her primary mode of communication is gestures (head and pointing), secondary is vocalizations and mouthing words, and third is use of writing pad or picture communication. Patient comprehends almost everything, although she occasionally requires repeated instruction particularly between questions/ instructions or tasks. Patient uses multimodalities to communicate basic wants/ needs. She would benefit from a high tech talking device such as an iPad or a [employer]raph[employer]. Patient exhibited significantly reduced breath support and coordination for speech. Her voice is consistently harsh and strangled, with a low pitch. She cannot sustained vowels for more than 1 second. Patient is currently on a pureed diet with nectar thickened liquids. She requires close supervision and 1:1 assistance with feeding to remind her to slow down, take small bites, swallow 2-3x per bite, and alternate bites/sips. Patient would benefit from further ST once d/c home with family and 24 hour supervision for safety. Summary: Patient's care plan and residential goals have been reviewed and revised as necessary. Please see the Rehabilitation Signature page for all necessary signatures.
[2019-01-03] MEDS: DIPYRIDAMOLE/ASPIRIN CAP ER PO SCH ×2 (09:50→20:41)
--- NOTE | 2019-01-03 13:36 | FAST ---
SHIFT START DATE/TIME: 01/03/2019 07:00 (PROCUREMENT ENGINEER) SHIFT END DATE/TIME: 01/03/2019 19:00 (PROCUREMENT ENGINEER) NAME GRACIE GRIJALVA DATE OF : 1950 DATE OF ADMISSION: 12/23/2018 14:36 (PROCUREMENT ENGINEER) PHONE: AGE: 68 N# [id number] GENDER: Female ENCOUNTER PHYSICIAN: Dr. Jesse Martinez M.D. 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 EATING: EATING - STEP 1: Does the patient complete the activity by him/herself with no assistance (physical, verbal/nonverbal cueing, setup/clean-up)? No. EATING - STEP 2: Does the patient need only setup/clean-up assistance from one helper? No. EATING - STEP 3: Does the patient need only verbal/nonverbal cueing or touching/steadying/contact guard assistance fro m one helper? Yes. 1. [id number] ADMISSION PERFORMANCE: Supervision or touching assistance CODE: 04 ORAL HYGIENE: ORAL HYGIENE - STEP 1: Does the patient complete the activity by him/herself with no assistance (physical, verbal/nonverbal cueing, setup/clean-up)? No. ORAL HYGIENE - STEP 2: Does the patient need only setup/clean-up assistance from one helper? No. ORAL HYGIENE - STEP 3: Does the patient need only verbal/nonverbal cueing or touching/steadying/contact guard assistance fro m one helper? Yes. 1. [id number] ADMISSION PERFORMANCE: Supervision or touching assistance CODE: 04 TOILETING HYGIENE: TOILETING HYGIENE - STEP 1: Does the patient complete the activity by him/herself with no assistance (physical, verbal/nonverbal cueing, setup/clean-up)? No. TOILETING HYGIENE - STEP 2: Does the patient need only setup/clean-up assistance from one helper? No. TOILETING HYGIENE - STEP 3: Does the patient need only verbal/nonverbal cueing or touching/steadying/contact guard assistance fro m one helper? Yes. 1. [id number] ADMISSION PERFORMANCE: Supervision or touching assistance CODE: 04 BATHING: Not assessed/no information CODE: - DRESSING - UPPER BODY: DRESSING - UPPER BODY - STEP 1: Does the patient complete the activity by him/herself with no assistance (physical, verbal/nonverbal cueing, setup/clean-up)? No. DRESSING - UPPER BODY - STEP 2: Does the patient need only setup/clean-up assistance from one helper? No. DRESSING - UPPER BODY - STEP 3: Does the patient need only verbal/nonverbal cueing or touching/steadying/contact guard assistance fro m one helper? Yes. 1. [id number] ADMISSION PERFORMANCE: Supervision or touching assistance CODE: 04 DRESSING - LOWER BODY: DRESSING - LOWER BODY - STEP 1: Does the patient complete the activity by him/herself with no assistance (physical, verbal/nonverbal cueing, setup/clean-up)? No. DRESSING - LOWER BODY - STEP 2: Does the patient need only setup/clean-up assistance from one helper? No. DRESSING - LOWER BODY - STEP 3: Does the patient need only verbal/nonverbal cueing or touching/steadying/contact guard assistance fro m one helper? No. DRESSING - LOWER BODY - STEP 4: Does the patient need physical assistance - for example lifting or trunk support from one helper - wi th the helper providing less than half of the effort? Yes. 1. [id number] ADMISSION PERFORMANCE: Partial/moderate assistance CODE: 03 PUTTING ON/TAKING OFF FOOTWEAR: FOOTWEAR - STEP 1: Does the patient complete the activity by him/herself with no assistance (physical, verbal/nonverbal cueing, setup/clean-up)? No. FOOTWEAR - STEP 2: Does the patient need only setup/clean-up assistance from one helper? No. FOOTWEAR - STEP 3: Does the patient need only verbal/nonverbal cueing or touching/steadying/contact guard assistance fro m one helper? No. FOOTWEAR - STEP 4: Does the patient need physical assistance - for example lifting or trunk support from one helper - wi th the helper providing less than half of the effort? Yes. 1. [id number] ADMISSION PERFORMANCE: Partial/moderate assistance CODE: 03 TRANSFER TOILET: TOILET TRANSFER - STEP 1: Does the patient complete the activity by him/herself with no assistance (physical, verbal/nonverbal cueing, setup/clean-up)? No. TOILET TRANSFER - STEP 2: Does the patient need only setup/clean-up assistance from one helper? No. TOILET TRANSFER - STEP 3: Does the patient need only verbal/nonverbal cueing or touching/steadying/contact guard assistance fro m one helper? No. TOILET TRANSFER - STEP 4: Does the patient need physical assistance - for example lifting or trunk support from one helper - wi th the helper providing less than half of the effort? Yes. 1. [id number] ADMISSION PERFORMANCE: Partial/moderate assistance CODE: 03 TRANSFERS: CAR: Not assessed/no information CODE: - WALK 10 FEET: Not assessed/no information CODE: - 1 STEP (CURB): Not assessed/no information CODE: - PICKING UP OBJECT: Not assessed/no information CODE: - DOES THE PATIENT USE A WHEELCHAIR/SCOOTER? Q1. DOES THE PATIENT USE A WHEELCHAIR/SCOOTER?: Yes CODE: 1 WHEEL 50 FEET WITH TWO TURNS: WHEEL 50 FEET WITH TWO TURNS - STEP 1: Does the patient complete the activity by him/herself with no assistance (physical, verbal/nonverbal cueing, setup/clean-up)? No. WHEEL 50 FEET WITH TWO TURNS - STEP 2: Does the patient need only setup/clean-up assistance from one helper? No. WHEEL 50 FEET WITH TWO TURNS - STEP 3: Does the patient need only verbal/nonverbal cueing or touching/steadying/contact guard assistance fro m one helper? No. WHEEL 50 FEET WITH TWO TURNS - STEP 4: Does the patient need physical assistance - for example lifting or trunk support from one helper - wi th the helper providing less than half of the effort? Yes. 1. [id number] ADMISSION PERFORMANCE: Partial/moderate assistance CODE: 03 INDICATE THE TYPE OF WHEELCHAIR/SCOOTER USED: RR1. INDICATE THE TYPE OF WHEELCHAIR/SCOOTER USED.: Manual CODE: 1 WHEEL 150 FEET: WHEEL 150 FEET - STEP 1: Does the patient complete the activity by him/herself with no assistance (physical, verbal/nonverbal cueing, setup/clean-up)? No. WHEEL 150 FEET - STEP 2: Does the patient need only setup/clean-up assistance from one helper? No. WHEEL 150 FEET - STEP 3: Does the patient need only verbal/nonverbal cueing or touching/steadying/contact guard assistance fro m one helper? No. WHEEL 150 FEET - STEP 4: Does the patient need physical assistance - for example lifting or trunk support from one helper - wi th the helper providing less than half of the effort? Yes. 1. [id number] ADMISSION PERFORMANCE: Partial/moderate assistance CODE: 03 INDICATE THE TYPE OF WHEELCHAIR/SCOOTER USED: SS1. INDICATE THE TYPE OF WHEELCHAIR/SCOOTER USED.: Manual CODE: 1 BLADDER AND BOWEL: H350. BLADDER CONTINENCE (3-DAY ASSESSMENT PERIOD): Incontinent daily (at least once a day) CODE: 3 H400. BOWEL CONTINENCE (3-DAY ASSESSMENT PERIOD): Occasionally incontinent (one episode of bowel incontinence) CODE: 1 SIGNATURE PANEL: The following modified sections: 1. [id number] Admission Performance, 1. [id number] Admission Performance, 1. IL2143H Admission Performance, 1. [id number] Admission Performance, 1. AR5212b Admission Performance, 1. SJ4554l Admission Performance, 1. RV3042i Admission Performance, 1. HR9031P Admission Performance , Q1. Does the patient use a wheelchair/scooter?, 1. VA5783A Admission Performance, RR1. Indicate the type of wheelchair/scooter used., 1. [id number] Admission Performance, Code, SS1. Indicate the type of wheelchair/scooter used., H350. Bladder Continence (3-day assessment period), H400. Bowel Continence (3-day assessment period) were [electronically] signed by Susie Ugarte C.N.A. on TueJan 03 2019 13: 35:19 GMT-0600 (Central Standard Time)
[2019-01-03] MEDS: ATORVASTATIN 80 MG TAB PO SCH (20:42)
[2019-01-03] MEDS: TOPIRAMATE 25 MG TAB PO SCH (20:42)
[2019-01-03] MEDS: DOCUSATE NA/SENNA CONC 1 TAB PO SCH (20:42)
[2019-01-04] MEDS: METOPROLOL TAR 25 MG TAB PO SCH (05:16)
[2019-01-04] MEDS: INSULIN -REGULAR HUMAN 50 UNIT/0.5 ML ML SQ SCH ×4 (06:51→21:00)
[2019-01-04] MEDS: PROMOD 30 ML DOSE PO SCH ×2 (08:00→20:00)
[2019-01-04] MEDS: DIPYRIDAMOLE/ASPIRIN CAP ER PO SCH ×2 (08:30→20:05)
[2019-01-04] MEDS: LOSARTAN POTASSIUM 50 MG TABLET PO SCH (08:35)
[2019-01-04] MEDS: POTASSIUM 25 MEQ EFFERV TAB PO SCH ×2 (08:35→20:05)
--- NOTE | 2019-01-04 11:10 | FAST ---
ENCOUNTER DATE AND TIME: 01/02/2019 08:00 (NIGHT SHIFT MANAGER) NAME GRACIE GRIJALVA DATE OF : 1950 DATE OF ADMISSION: 12/23/2018 14:36 (NIGHT SHIFT MANAGER) PHONE: AGE: 68 N# [id number] GENDER: Female ENCOUNTER PHYSICIAN: Dr. Jesse Martinez M.D. 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 ROLL LEFT AND RIGHT: ROLL LEFT AND RIGHT - STEP 1: Does the patient complete the activity by him/herself with no assistance (physical, verbal/nonverbal cueing, setup/clean-up)? No. ROLL LEFT AND RIGHT - STEP 2: Does the patient need only setup/clean-up assistance from one helper? Yes. 1. [id number] ADMISSION PERFORMANCE: Setup or clean-up assistance CODE: 05 SIT TO LYING: SIT TO LYING - STEP 1: Does the patient complete the activity by him/herself with no assistance (physical, verbal/nonverbal cueing, setup/clean-up)? No. SIT TO LYING - STEP 2: Does the patient need only setup/clean-up assistance from one helper? Yes. 1. [id number] ADMISSION PERFORMANCE: Setup or clean-up assistance CODE: 05 LYING TO SITTING: LYING TO SITTING ON SIDE OF BED - STEP 1: Does the patient complete the activity by him/herself with no assistance (physical, verbal/nonverbal cueing, setup/clean-up)? No. LYING TO SITTING ON SIDE OF BED - STEP 2: Does the patient need only setup/clean-up assistance from one helper? Yes. 1. [id number] ADMISSION PERFORMANCE: Setup or clean-up assistance CODE: 05 SIT TO STAND: SIT TO STAND - STEP 1: Does the patient complete the activity by him/herself with no assistance (physical, verbal/nonverbal cueing, setup/clean-up)? No. SIT TO STAND - STEP 2: Does the patient need only setup/clean-up assistance from one helper? Yes. 1. [id number] ADMISSION PERFORMANCE: Setup or clean-up assistance CODE: 05 TRANSFERS: BED, CHAIR: CHAIR/[id number] TRANSFER - STEP 1: Does the patient complete the activity by him/herself with no assistance (physical, verbal/nonverbal cueing, setup/clean-up)? No. CHAIR/[id number] TRANSFER - STEP 2: Does the patient need only setup/clean-up assistance from one helper? Yes. 1. [id number] ADMISSION PERFORMANCE: Setup or clean-up assistance CODE: 05 TRANSFER TOILET: TOILET TRANSFER - STEP 1: Does the patient complete the activity by him/herself with no assistance (physical, verbal/nonverbal cueing, setup/clean-up)? No. TOILET TRANSFER - STEP 2: Does the patient need only setup/clean-up assistance from one helper? Yes. 1. [id number] ADMISSION PERFORMANCE: Setup or clean-up assistance CODE: 05 TRANSFERS: CAR: Not attempted due to environmental limitations (e.g., lack of equipment, weather constraints) CODE: 10 WALK 10 FEET: WALK 10 FEET - STEP 1: Does the patient complete the activity by him/herself with no assistance (physical, verbal/nonverbal cueing, setup/clean-up)? No. WALK 10 FEET - STEP 2: Does the patient need only setup/clean-up assistance from one helper? Yes. 1. [id number] ADMISSION PERFORMANCE: Setup or clean-up assistance CODE: 05 WALK 50 FEET: WALK 50 FEET - STEP 1: Does the patient complete the activity by him/herself with no assistance (physical, verbal/nonverbal cueing, setup/clean-up)? No. WALK 50 FEET - STEP 2: Does the patient need only setup/clean-up assistance from one helper? Yes. 1. [id number] ADMISSION PERFORMANCE: Setup or clean-up assistance CODE: 05 WALK 150 FEET: WALK 150 FEET - STEP 1: Does the patient complete the activity by him/herself with no assistance (physical, verbal/nonverbal cueing, setup/clean-up)? No. WALK 150 FEET - STEP 2: Does the patient need only setup/clean-up assistance from one helper? Yes. 1. [id number] ADMISSION PERFORMANCE: Setup or clean-up assistance CODE: 05 WALK 10 FEET UNEVEN: Not attempted due to medical condition or safety concerns CODE: 88 1 STEP (CURB): 1 STEP CURB - STEP 1: Does the patient complete the activity by him/herself with no assistance (physical, verbal/nonverbal cueing, setup/clean-up)? No. 1 STEP CURB - STEP 2: Does the patient need only setup/clean-up assistance from one helper? No. 1 STEP CURB - STEP 3: Does the patient need only verbal/nonverbal cueing or touching/steadying/contact guard assistance fro m one helper? Yes. 1. [id number] ADMISSION PERFORMANCE: Supervision or touching assistance CODE: 04 4 STEPS: 4 STEPS - STEP 1: Does the patient complete the activity by him/herself with no assistance (physical, verbal/nonverbal cueing, setup/clean-up)? No. 4 STEPS - STEP 2: Does the patient need only setup/clean-up assistance from one helper? No. 4 STEPS - STEP 3: Does the patient need only verbal/nonverbal cueing or touching/steadying/contact guard assistance fro m one helper? Yes. 1. [id number] ADMISSION PERFORMANCE: Supervision or touching assistance CODE: 04 12 STEPS: 12 STEPS - STEP 1: Does the patient complete the activity by him/herself with no assistance (physical, verbal/nonverbal cueing, setup/clean-up)? No. 12 STEPS - STEP 2: Does the patient need only setup/clean-up assistance from one helper? No. 12 STEPS - STEP 3: Does the patient need only verbal/nonverbal cueing or touching/steadying/contact guard assistance fro m one helper? Yes. 1. [id number] ADMISSION PERFORMANCE: Supervision or touching assistance CODE: 04 PICKING UP OBJECT: Not attempted due to medical condition or safety concerns CODE: 88 DOES THE PATIENT USE A WHEELCHAIR/SCOOTER? Q1. DOES THE PATIENT USE A WHEELCHAIR/SCOOTER?: No CODE: 0 INDICATE THE TYPE OF WHEELCHAIR/SCOOTER USED: CODE: EXPR INDICATE THE TYPE OF WHEELCHAIR/SCOOTER USED: CODE: EXPR BLADDER AND BOWEL: CODE: EXPR CODE: EXPR SIGNATURE PANEL: The following modified sections: 1. [id number] Admission Performance, 1. [id number] Admission Performance, 1. GF7129X Admission Performance, 1. BP3155A Admission Performance, 1. FL4458Y Admission Performance, 1. VB0164P Admission Performance, 1. MA3040J Admission Performance, 1. MN2912H Admission Performance , 1. FL0057B Admission Performance, 1. SA6104X Admission Performance, 1. [id number] Admission Performanc e, 1. [id number] Admission Performance, Q1. Does the patient use a wheelchair/scooter? were [electronica lly] signed by Patrice Farley PTA on TueJan 04 2019 11:09:14 GMT-0600 (Central Standard Time)
--- NOTE | 2019-01-04 14:18 | FAST ---
SHIFT START DATE/TIME: 01/04/2019 07:00 (CAT HOOKER) SHIFT END DATE/TIME: 01/04/2019 19:00 (CAT HOOKER) NAME GRACIE GRIJALVA DATE OF : 1950 DATE OF ADMISSION: 12/23/2018 14:36 (CAT HOOKER) PHONE: AGE: 68 N# [id number] GENDER: Female ENCOUNTER PHYSICIAN: Dr. Jesse Martinez M.D. 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 EATING: EATING - STEP 1: Does the patient complete the activity by him/herself with no assistance (physical, verbal/nonverbal cueing, setup/clean-up)? No. EATING - STEP 2: Does the patient need only setup/clean-up assistance from one helper? No. EATING - STEP 3: Does the patient need only verbal/nonverbal cueing or touching/steadying/contact guard assistance fro m one helper? Yes. 1. [id number] ADMISSION PERFORMANCE: Supervision or touching assistance CODE: 04 ORAL HYGIENE: ORAL HYGIENE - STEP 1: Does the patient complete the activity by him/herself with no assistance (physical, verbal/nonverbal cueing, setup/clean-up)? No. ORAL HYGIENE - STEP 2: Does the patient need only setup/clean-up assistance from one helper? No. ORAL HYGIENE - STEP 3: Does the patient need only verbal/nonverbal cueing or touching/steadying/contact guard assistance fro m one helper? Yes. 1. [id number] ADMISSION PERFORMANCE: Supervision or touching assistance CODE: 04 TOILETING HYGIENE: TOILETING HYGIENE - STEP 1: Does the patient complete the activity by him/herself with no assistance (physical, verbal/nonverbal cueing, setup/clean-up)? No. TOILETING HYGIENE - STEP 2: Does the patient need only setup/clean-up assistance from one helper? No. TOILETING HYGIENE - STEP 3: Does the patient need only verbal/nonverbal cueing or touching/steadying/contact guard assistance fro m one helper? Yes. 1. [id number] ADMISSION PERFORMANCE: Supervision or touching assistance CODE: 04 BATHING: Not assessed/no information CODE: - DRESSING - UPPER BODY: DRESSING - UPPER BODY - STEP 1: Does the patient complete the activity by him/herself with no assistance (physical, verbal/nonverbal cueing, setup/clean-up)? No. DRESSING - UPPER BODY - STEP 2: Does the patient need only setup/clean-up assistance from one helper? No. DRESSING - UPPER BODY - STEP 3: Does the patient need only verbal/nonverbal cueing or touching/steadying/contact guard assistance fro m one helper? Yes. 1. [id number] ADMISSION PERFORMANCE: Supervision or touching assistance CODE: 04 DRESSING - LOWER BODY: DRESSING - LOWER BODY - STEP 1: Does the patient complete the activity by him/herself with no assistance (physical, verbal/nonverbal cueing, setup/clean-up)? No. DRESSING - LOWER BODY - STEP 2: Does the patient need only setup/clean-up assistance from one helper? No. DRESSING - LOWER BODY - STEP 3: Does the patient need only verbal/nonverbal cueing or touching/steadying/contact guard assistance fro m one helper? Yes. 1. [id number] ADMISSION PERFORMANCE: Supervision or touching assistance CODE: 04 PUTTING ON/TAKING OFF FOOTWEAR: Not assessed/no information CODE: - ROLL LEFT AND RIGHT: ROLL LEFT AND RIGHT - STEP 1: Does the patient complete the activity by him/herself with no assistance (physical, verbal/nonverbal cueing, setup/clean-up)? No. ROLL LEFT AND RIGHT - STEP 2: Does the patient need only setup/clean-up assistance from one helper? Yes. 1. [id number] ADMISSION PERFORMANCE: Setup or clean-up assistance CODE: 05 SIT TO LYING: SIT TO LYING - STEP 1: Does the patient complete the activity by him/herself with no assistance (physical, verbal/nonverbal cueing, setup/clean-up)? No. SIT TO LYING - STEP 2: Does the patient need only setup/clean-up assistance from one helper? No. SIT TO LYING - STEP 3: Does the patient need only verbal/nonverbal cueing or touching/steadying/contact guard assistance fro m one helper? Yes. 1. [id number] ADMISSION PERFORMANCE: Supervision or touching assistance CODE: 04 LYING TO SITTING: LYING TO SITTING ON SIDE OF BED - STEP 1: Does the patient complete the activity by him/herself with no assistance (physical, verbal/nonverbal cueing, setup/clean-up)? No. LYING TO SITTING ON SIDE OF BED - STEP 2: Does the patient need only setup/clean-up assistance from one helper? No. LYING TO SITTING ON SIDE OF BED - STEP 3: Does the patient need only verbal/nonverbal cueing or touching/steadying/contact guard assistance fro m one helper? Yes. 1. [id number] ADMISSION PERFORMANCE: Supervision or touching assistance CODE: 04 SIT TO STAND: SIT TO STAND - STEP 1: Does the patient complete the activity by him/herself with no assistance (physical, verbal/nonverbal cueing, setup/clean-up)? No. SIT TO STAND - STEP 2: Does the patient need only setup/clean-up assistance from one helper? No. SIT TO STAND - STEP 3: Does the patient need only verbal/nonverbal cueing or touching/steadying/contact guard assistance fro m one helper? Yes. 1. [id number] ADMISSION PERFORMANCE: Supervision or touching assistance CODE: 04 TRANSFERS: BED, CHAIR: CHAIR/[id number] TRANSFER - STEP 1: Does the patient complete the activity by him/herself with no assistance (physical, verbal/nonverbal cueing, setup/clean-up)? No. CHAIR/[id number] TRANSFER - STEP 2: Does the patient need only setup/clean-up assistance from one helper? No. CHAIR/[id number] TRANSFER - STEP 3: Does the patient need only verbal/nonverbal cueing or touching/steadying/contact guard assistance fro m one helper? Yes. 1. [id number] ADMISSION PERFORMANCE: Supervision or touching assistance CODE: 04 TRANSFER TOILET: TOILET TRANSFER - STEP 1: Does the patient complete the activity by him/herself with no assistance (physical, verbal/nonverbal cueing, setup/clean-up)? No. TOILET TRANSFER - STEP 2: Does the patient need only setup/clean-up assistance from one helper? No. TOILET TRANSFER - STEP 3: Does the patient need only verbal/nonverbal cueing or touching/steadying/contact guard assistance fro m one helper? Yes. 1. [id number] ADMISSION PERFORMANCE: Supervision or touching assistance CODE: 04 TRANSFERS: CAR: Not assessed/no information CODE: - WALK 10 FEET: Not assessed/no information CODE: - 1 STEP (CURB): Not assessed/no information CODE: - PICKING UP OBJECT: Not assessed/no information CODE: - DOES THE PATIENT USE A WHEELCHAIR/SCOOTER? Q1. DOES THE PATIENT USE A WHEELCHAIR/SCOOTER?: Yes CODE: 1 WHEEL 50 FEET WITH TWO TURNS: WHEEL 50 FEET WITH TWO TURNS - STEP 1: Does the patient complete the activity by him/herself with no assistance (physical, verbal/nonverbal cueing, setup/clean-up)? No. WHEEL 50 FEET WITH TWO TURNS - STEP 2: Does the patient need only setup/clean-up assistance from one helper? No. WHEEL 50 FEET WITH TWO TURNS - STEP 3: Does the patient need only verbal/nonverbal cueing or touching/steadying/contact guard assistance fro m one helper? Yes. 1. [id number] ADMISSION PERFORMANCE: Supervision or touching assistance CODE: 04 INDICATE THE TYPE OF WHEELCHAIR/SCOOTER USED: RR1. INDICATE THE TYPE OF WHEELCHAIR/SCOOTER USED.: Manual CODE: 1 WHEEL 150 FEET: WHEEL 150 FEET - STEP 1: Does the patient complete the activity by him/herself with no assistance (physical, verbal/nonverbal cueing, setup/clean-up)? No. WHEEL 150 FEET - STEP 2: Does the patient need only setup/clean-up assistance from one helper? No. WHEEL 150 FEET - STEP 3: Does the patient need only verbal/nonverbal cueing or touching/steadying/contact guard assistance fro m one helper? Yes. 1. [id number] ADMISSION PERFORMANCE: Supervision or touching assistance CODE: 04 INDICATE THE TYPE OF WHEELCHAIR/SCOOTER USED: SS1. INDICATE THE TYPE OF WHEELCHAIR/SCOOTER USED.: Manual CODE: 1 BLADDER AND BOWEL: H350. BLADDER CONTINENCE (3-DAY ASSESSMENT PERIOD): Incontinent daily (at least once a day) CODE: 3 H400. BOWEL CONTINENCE (3-DAY ASSESSMENT PERIOD): Always continent CODE: 0 SIGNATURE PANEL: The following modified sections: 1. BT9182O Admission Performance, 1. FT6419V Admission Performance, 1. GC9761N Admission Performance, 1. EI1964k Admission Performance, 1. AN0371w Admission Performance, 1. CG9869P Admission Performance, 1. ZU3798F Admission Performance, 1. FY5963G Admission Performance , 1. SP9807W Admission Performance, 1. BW9222C Admission Performance, 1. EA0965I Admission Performanc e, 1. XP9899Y Admission Performance, 1. JL9641S Admission Performance, Q1. Does the patient use a whe elchair/scooter?, 1. [id number] Admission Performance, RR1. Indicate the type of wheelchair/scooter used ., 1. [id number] Admission Performance, Code, SS1. Indicate the type of wheelchair/scooter used., H350. Bladder Continence (3-day assessment period), H400. Bowel Continence (3-day assessment period) were [ electronically] signed by Teetee HolguinNNaseem on TueJan 04 2019 14:18:33 GMT-0600 (Central Standard Time)
[2019-01-04] MEDS: DOCUSATE NA/SENNA CONC 1 TAB PO SCH (20:05)
[2019-01-04] MEDS: ATORVASTATIN 80 MG TAB PO SCH (20:05)
[2019-01-04] MEDS: TOPIRAMATE 25 MG TAB PO SCH (20:05)
[2019-01-04] MEDS: CYCLOBENZAPRINE 10 MG TAB PO PRN (20:06)
[2019-01-05] MEDS: METOPROLOL TAR 25 MG TAB PO SCH (05:18)
[2019-01-05] MEDS: INSULIN -REGULAR HUMAN 50 UNIT/0.5 ML ML SQ SCH ×4 (07:03→19:46)
[2019-01-05] MEDS: CYCLOBENZAPRINE 10 MG TAB PO PRN ×2 (07:33→19:03)
[2019-01-05] MEDS: LOSARTAN POTASSIUM 50 MG TABLET PO SCH (07:34)
[2019-01-05] MEDS: PROMOD 30 ML DOSE PO SCH ×2 (07:34→19:04)
[2019-01-05] MEDS: POTASSIUM 25 MEQ EFFERV TAB PO SCH ×2 (07:34→19:03)
[2019-01-05] MEDS: DIPYRIDAMOLE/ASPIRIN CAP ER PO SCH ×2 (07:34→19:03)
[2019-01-05] MEDS: BISACODYL 10 MG RECTAL SUPP PR PRN (13:36)
[2019-01-05] MEDS: POLYETHYL GLY 3350 17 GM/DOSE PO PRN (13:40)
--- NOTE | 2019-01-05 15:10 | FAST ---
ENCOUNTER DATE AND TIME: 01/05/2019 08:00 (FACILITIES MANAGER) NAME GRACIE GRIJALVA DATE OF : 1950 DATE OF ADMISSION: 12/23/2018 14:36 (FACILITIES MANAGER) PHONE: AGE: 68 N# [id number] GENDER: Female ENCOUNTER PHYSICIAN: Dr. Jesse Martinez M.D. 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 EATING: Not assessed/no information CODE: - ORAL HYGIENE: Not assessed/no information CODE: - TOILETING HYGIENE: Not assessed/no information CODE: - BATHING: SHOWER/BATHE SELF - STEP 1: Does the patient complete the activity by him/herself with no assistance (physical, verbal/nonverbal cueing, setup/clean-up)? No. SHOWER/BATHE SELF - STEP 2: Does the patient need only setup/clean-up assistance from one helper? No. SHOWER/BATHE SELF - STEP 3: Does the patient need only verbal/nonverbal cueing or touching/steadying/contact guard assistance fro m one helper? Yes. 1. [id number] ADMISSION PERFORMANCE: Supervision or touching assistance CODE: 04 DRESSING - UPPER BODY: DRESSING - UPPER BODY - STEP 1: Does the patient complete the activity by him/herself with no assistance (physical, verbal/nonverbal cueing, setup/clean-up)? No. DRESSING - UPPER BODY - STEP 2: Does the patient need only setup/clean-up assistance from one helper? Yes. 1. [id number] ADMISSION PERFORMANCE: Setup or clean-up assistance CODE: 05 DRESSING - LOWER BODY: DRESSING - LOWER BODY - STEP 1: Does the patient complete the activity by him/herself with no assistance (physical, verbal/nonverbal cueing, setup/clean-up)? No. DRESSING - LOWER BODY - STEP 2: Does the patient need only setup/clean-up assistance from one helper? No. DRESSING - LOWER BODY - STEP 3: Does the patient need only verbal/nonverbal cueing or touching/steadying/contact guard assistance fro m one helper? No. DRESSING - LOWER BODY - STEP 4: Does the patient need physical assistance - for example lifting or trunk support from one helper - wi th the helper providing less than half of the effort? Yes. 1. [id number] ADMISSION PERFORMANCE: Partial/moderate assistance CODE: 03 PUTTING ON/TAKING OFF FOOTWEAR: FOOTWEAR - STEP 1: Does the patient complete the activity by him/herself with no assistance (physical, verbal/nonverbal cueing, setup/clean-up)? No. FOOTWEAR - STEP 2: Does the patient need only setup/clean-up assistance from one helper? No. FOOTWEAR - STEP 3: Does the patient need only verbal/nonverbal cueing or touching/steadying/contact guard assistance fro m one helper? No. FOOTWEAR - STEP 4: Does the patient need physical assistance - for example lifting or trunk support from one helper - wi th the helper providing less than half of the effort? No. FOOTWEAR - STEP 5: Does the patient need physical assistance - for example lifting or trunk support from one helper - wi th the helper providing more than half of the effort? No. FOOTWEAR - STEP 6: Does the helper provide all of the effort? OR Is the assistance of two or more helpers required to co mplete the activity? Yes. 1. [id number] ADMISSION PERFORMANCE: Dependent CODE: 01 DOES THE PATIENT USE A WHEELCHAIR/SCOOTER? CODE: EXPR INDICATE THE TYPE OF WHEELCHAIR/SCOOTER USED: CODE: EXPR INDICATE THE TYPE OF WHEELCHAIR/SCOOTER USED: CODE: EXPR BLADDER AND BOWEL: CODE: EXPR CODE: EXPR SIGNATURE PANEL: The following modified sections: 1. [id number] Admission Performance, 1. [id number] Admission Performance, 1. RH1612s Admission Performance, 1. MN9878n Admission Performance were [electronically] signed by Elmo Dubose OT on TueJan 05 2019 15:09:01 GMT-0600 (Central Standard Time)
[2019-01-05] MEDS: DOCUSATE NA/SENNA CONC 1 TAB PO SCH (19:04)
[2019-01-05] MEDS: ATORVASTATIN 80 MG TAB PO SCH (19:04)
[2019-01-05] MEDS: TOPIRAMATE 25 MG TAB PO SCH (19:05)
[2019-01-05] MEDS: NAPROXEN 250 MG TAB PO PRN (19:30)
[2019-01-06] MEDS: METOPROLOL TAR 25 MG TAB PO SCH (05:00)
[2019-01-06] MEDS: INSULIN -REGULAR HUMAN 50 UNIT/0.5 ML ML SQ SCH ×4 (07:07→18:53)
[2019-01-06] MEDS: PROMOD 30 ML DOSE PO SCH ×2 (08:00→18:53)
[2019-01-06] MEDS: LOSARTAN POTASSIUM 50 MG TABLET PO SCH (08:15)
[2019-01-06] MEDS: CYCLOBENZAPRINE 10 MG TAB PO PRN ×2 (08:15→18:52)
[2019-01-06] MEDS: POTASSIUM 25 MEQ EFFERV TAB PO SCH ×2 (08:15→18:51)
[2019-01-06] MEDS: DIPYRIDAMOLE/ASPIRIN CAP ER PO SCH ×2 (08:16→18:52)
--- NOTE | 2019-01-06 15:21 | R.PN ---
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 SUBJECTIVE: Pt denied any Shortness of Breath. Pt denied any depression. Labs reviewed and are stable. She is making fair overall progress with physical, occupational. She fa iled a repeat barium swallow study except pureed diet. She has very poor labial, lingual and guttural sounds. Poor progress made recovering speech sounds. She also has difficulty communicating in writin g. She requires verbal-tactile cues for accurate positioning and timing for proper strategy. She tolerat ed single sips of nectar thickened liquids. Propelled wheelchair 250' with standby assistance. VITAL SIGNS Temperature: 98.1 F SBP/DBP: 115/71 Pulse: 71 Resp: 16 MEDICATION ALLERGIES: No Known Drug Allergies (NKDA) ENVIRONMENTAL ALLERGIES: None Known - Substance Allergies None Known - Other Allergies None Known NURSING: - Shower allowing shower - Bladder care per protocol - Skin care per protocol PRECAUTIONS: - Weight Bearing Precaution WBAT left LE ACTIVITIES OOB only with supervision THERAPIES: - Occupational Therapy Cognitive Retraining. Visual Perceptual Training. - Dietary and Nutrition Adequate Nutrition. Nutritional Education. Nutritional Supplements. - Speech Therapy Cognitive Training. Dysphagia Therapy. Expressive Language Skills. Memory Strategies. Receptive Langu age Skills. Speech Intelligibility Training. PHYSICAL EXAM - Gen Alert and awake Lying in bed No apparent distress Oriented to: person, time, and place - Skin No skin breakdown. Normacephalic - Eyes No abnormalities - ENMT No abnormalities - Neck No abnormalities - CVS RRR - Chest Clear - Resp No wheezing - Abd + bowel sounds - GI Non distended Deferred - No abnormalities - Ext No significant edema - MSK 3+/5 weakness in left upper and 4+/5 in left lower extremity - Neuro 3+/5 weakness in left upper and 4+/5 in left lower extremity - Psych No abnormalities ASSESSMENT: Pt. is a 68 yo Right-handed black female.On 12/19/2018 Pt. presented to [facility] with sudden on set of left-side weakness.On 12/19/2018 she was admitted to [facility] with diagnosis Acute to julian bacute infarct Right Lentiform Nucleus and Adjacent Caudate.Her impairment category is Stroke 01 - L eft Body (Right Brain) (01.1).Pre-morbidly, Pt. was independent/mod-I in Locomotion, Safety Awareness , Balance, Social Cognition, Transfers Control, Sphincter Control, Self-Care, and Endurance; and she had good Balance, Endurance, Locomotion, Transfers Control, Communication, and Social Cognition.Curre ntly, she has deficits of Locomotion, Safety Awareness, Balance, Transfers Control, Self-Care, and Co mmunication.Pt. is now referred to [facility] for acute in-patient rehabilitat ion in order to maximize patient's functional independence in activities of daily living, strength, R OM, and mobility.- Rehab Goal Patient has realistic goal of being discharged at assistance level 6-Erica to reside at Home with Fam elis/Relatives. MDM/PLAN: - Physical Therapy Gait dysfunction - to improve, our physical therapists will perform initial evaluation of pt's statu s upon admission and devise an individualized program for Gait Training, and Wheel Chair mobility Inability to transfer - to improve, our physical therapists will perform initial evaluation of pt's status upon admission and devise an individualized program for Bed mobility Need for home safety evaluation - to improve, our physical therapists will perform initial evaluatio n of pt's status upon admission and devise an individualized program for Home Evaluation Need in caregiver upon discharge - to improve, our physical therapists will perform initial evaluati on of pt's status upon admission and devise an individualized program for Caregiver Training Edema - to improve, our physical therapists will perform initial evaluation of pt's status upon admi ssion and devise an individualized program for Elevation Training, and Lymphedema Therapy New precaution - to improve, our physical therapists will perform initial evaluation of pt's status upon admission and devise an individualized program for Patient precaution education Poor balance - to improve, our physical therapists will perform initial evaluation of pt's status up on admission and devise an individualized program for Balance Training Weakness - to improve, our physical therapists will perform initial evaluation of pt's status upon a dmission and devise an individualized program for Aquatic Therapy, Neuromuscular Reeducation, and Str engthening Achieving independence - to improve, our physical therapists will perform initial evaluation of pt's status upon admission and devise an individualized program for Community Reintegration Activities - Occupational Therapy ADL deficits - to improve, our occupation therapists will perform initial evaluation of pt's status upon admission and devise an individualized program for Bathing, Bed mobility, Community Reintegratio n, Cooking, Dressing, Eating, Fine Motor Skills, Grooming, Homemaking, Kitchen Mobility, Laundry, Pat ient Education, Safety Awareness, Splinting - Positioning, Transfers(Toilet, Tub, Shower), and Wheel Chair Management Need for primary care provider - to improve, our occupation therapists will perform initial evaluation of pt's status upon admission and devise an individualized program for Caregiver Training Weakness - to improve, our occupation therapists will perform initial evaluation of pt's status upon admission and devise an individualized program for Aquatic Therapy, Balance, Endurance, UE ROM, and UE strengthening - Other See attached MAR (Medication Administration Record) [email or web address].pdf See attached MAR (Medication Administration Record) - Diet Type Continue Regular - Diet - Liquid Texture Continue Thin - Tube Feed Continue N/A - Bladder care per protocol - Weight Bearing Precaution WBAT left LE - Skin care per protocol - Diet - Solid Texture Continue Regular Continue Pureed - Shower allowing shower for Dementia, TBI, Stroke, or others FUNCTIONAL STATUS: UPDATED AT WEEKLY TEAM CONFERENCE - Bladder Same accident frequency: 7-Ind - No accidents in the past 7 days - Bowel Same accident frequency: 7-Ind - No accidents in the past 7 days - Walking Same score based on distance walked: 1(<=50ft) - Wheelchair Same score based on distance traveled: 0(N/A) FUNCTIONAL STATUS: - Self-Care A. Eating modA B. Grooming sup C. Bathing Kiersten D. Dressing - Upper Kiersten E. Dressing - Lower Kiersten F. Toileting modA - Sphincter Control G. Bladder control sup H. Bowel control sup - Transfers Control I. Bed/Chair/Wheelchair modA J. Toilet modA K. Tub/Shower modA - Locomotion L. Walk/Wheelchair (W) modA M. Stairs maxA - Communication N. Comprehension (B) sup O. Expression (B) modA - Social Cognition P. Social Interaction sup Q. Problem Solving sup R. Memory Ind - Endurance Good - Balance Good - Safety Awareness Good QI SCORES: - Self-Care A. Eating 03-Partial/moderate assistance B. Oral hygiene 03-Partial/moderate assistance C. Toileting hygiene 03-Partial/moderate assistance E. Shower/bathe self 03-Partial/moderate assistance F. Upper body dressing 03-Partial/moderate assistance G. Lower body dressing 03-Partial/moderate assistance H. Putting on/taking off footwear 02-Substantial/maximal assistance - Mobility A. Roll left and right 03-Partial/moderate assistance B. Sit to lying 03-Partial/moderate assistance C. Lying to sitting on side of bed 03-Partial/moderate assistance D. Sit to stand 04-Supervision or touching assistance E. Chair/[id number] transfer 04-Supervision or touching assistance F. Toilet transfer 03-Partial/moderate assistance G. Car transfer 88-Not attempted due to medical condition or safety concerns I. Walk 10 feet 04-Supervision or touching assistance J. Walk 50 feet with two turns 88-Not attempted due to medical condition or safety concerns K. Walk 150 feet 88-Not attempted due to medical condition or safety concerns L. Walking 10 feet on uneven surfaces 88-Not attempted due to medical condition or safety concerns M. 1 step (curb) 88-Not attempted due to medical condition or safety concerns N. 4 steps 88-Not attempted due to medical condition or safety concerns O. 12 steps 88-Not attempted due to medical condition or safety concerns P. Picking up object 88-Not attempted due to medical condition or safety concerns R. Wheel 50 feet with two turns 88-Not attempted due to medical condition or safety concerns S. Wheel 150 feet 88-Not attempted due to medical condition or safety concerns - Bladder and Bowel Bladder continence 0-Always continent Bowel continence 0-Always continent - Endurance Fair - Balance Fair - Safety Awareness Fair CURRENT FUNC. 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
[2019-01-06] MEDS: ATORVASTATIN 80 MG TAB PO SCH (18:52)
[2019-01-06] MEDS: DOCUSATE NA/SENNA CONC 1 TAB PO SCH (18:53)
[2019-01-06] MEDS: NAPROXEN 250 MG TAB PO PRN (18:53)
[2019-01-06] MEDS: TOPIRAMATE 25 MG TAB PO SCH (18:54)
[2019-01-07] MEDS: METOPROLOL TAR 25 MG TAB PO SCH (05:07)
[2019-01-07] MEDS: INSULIN -REGULAR HUMAN 50 UNIT/0.5 ML ML SQ SCH ×4 (07:25→19:55)
[2019-01-07] MEDS: PROMOD 30 ML DOSE PO SCH ×2 (08:00→20:00)
[2019-01-07] MEDS: LOSARTAN POTASSIUM 50 MG TABLET PO SCH (08:00)
[2019-01-07] MEDS: POTASSIUM 25 MEQ EFFERV TAB PO SCH ×2 (08:17→19:52)
[2019-01-07] MEDS: DIPYRIDAMOLE/ASPIRIN CAP ER PO SCH ×2 (08:18→19:53)
[2019-01-07] MEDS: CYCLOBENZAPRINE 10 MG TAB PO PRN ×2 (08:19→19:53)
[2019-01-07] MEDS: POLYETHYL GLY 3350 17 GM/DOSE PO PRN (15:38)
[2019-01-07] MEDS: NAPROXEN 250 MG TAB PO PRN (19:52)
[2019-01-07] MEDS: TOPIRAMATE 25 MG TAB PO SCH (19:52)
[2019-01-07] MEDS: ATORVASTATIN 80 MG TAB PO SCH (19:52)
[2019-01-07] MEDS: DOCUSATE NA/SENNA CONC 1 TAB PO SCH (19:53)
[2019-01-08] MEDS: METOPROLOL TAR 25 MG TAB PO SCH (05:04)
[2019-01-08] MEDS: INSULIN -REGULAR HUMAN 50 UNIT/0.5 ML ML SQ SCH ×4 (06:58→21:00)
[2019-01-08] MEDS: LOSARTAN POTASSIUM 50 MG TABLET PO SCH (08:00)
[2019-01-08] MEDS: PROMOD 30 ML DOSE PO SCH ×2 (08:35→20:00)
[2019-01-08] MEDS: POTASSIUM 25 MEQ EFFERV TAB PO SCH ×2 (08:38→21:36)
[2019-01-08] MEDS: DIPYRIDAMOLE/ASPIRIN CAP ER PO SCH ×2 (08:38→21:36)
--- NOTE | 2019-01-08 15:03 | FAST ---
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 Jesse Martinez M.D. 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 EATING: Not assessed/no information CODE: - ORAL HYGIENE: ORAL HYGIENE - STEP 1: Does the patient complete the activity by him/herself with no assistance (physical, verbal/nonverbal cueing, setup/clean-up)? Yes. 1. [id number] ADMISSION PERFORMANCE: Independent CODE: 06 TOILETING HYGIENE: Not assessed/no information CODE: - BATHING: SHOWER/BATHE SELF - STEP 1: Does the patient complete the activity by him/herself with no assistance (physical, verbal/nonverbal cueing, setup/clean-up)? No. SHOWER/BATHE SELF - STEP 2: Does the patient need only setup/clean-up assistance from one helper? No. SHOWER/BATHE SELF - STEP 3: Does the patient need only verbal/nonverbal cueing or touching/steadying/contact guard assistance fro m one helper? Yes. 1. [id number] ADMISSION PERFORMANCE: Supervision or touching assistance CODE: 04 DRESSING - UPPER BODY: DRESSING - UPPER BODY - STEP 1: Does the patient complete the activity by him/herself with no assistance (physical, verbal/nonverbal cueing, setup/clean-up)? No. DRESSING - UPPER BODY - STEP 2: Does the patient need only setup/clean-up assistance from one helper? Yes. 1. [id number] ADMISSION PERFORMANCE: Setup or clean-up assistance CODE: 05 DRESSING - LOWER BODY: DRESSING - LOWER BODY - STEP 1: Does the patient complete the activity by him/herself with no assistance (physical, verbal/nonverbal cueing, setup/clean-up)? No. DRESSING - LOWER BODY - STEP 2: Does the patient need only setup/clean-up assistance from one helper? No. DRESSING - LOWER BODY - STEP 3: Does the patient need only verbal/nonverbal cueing or touching/steadying/contact guard assistance fro m one helper? No. DRESSING - LOWER BODY - STEP 4: Does the patient need physical assistance - for example lifting or trunk support from one helper - wi th the helper providing less than half of the effort? Yes. 1. [id number] ADMISSION PERFORMANCE: Partial/moderate assistance CODE: 03 PUTTING ON/TAKING OFF FOOTWEAR: Not assessed/no information CODE: - DOES THE PATIENT USE A WHEELCHAIR/SCOOTER? CODE: EXPR INDICATE THE TYPE OF WHEELCHAIR/SCOOTER USED: CODE: EXPR INDICATE THE TYPE OF WHEELCHAIR/SCOOTER USED: CODE: EXPR BLADDER AND BOWEL: CODE: EXPR CODE: EXPR SIGNATURE PANEL: The following modified sections: 1. [id number] Admission Performance, 1. [id number] Admission Performance, 1. [id number] Admission Performance, 1. [id number] Admission Performance were [electronically] signed by DONOVAN De Leon on TueJan 08 2019 15:02:01 GMT-0600 (Central Standard Time)
--- NOTE | 2019-01-08 16:46 | FAST ---
SHIFT START DATE/TIME: 01/08/2019 07:00 (ADMITTING CLERK) SHIFT END DATE/TIME: 01/08/2019 19:00 (ADMITTING CLERK) NAME GRACIE GRIJALVA DATE OF : 1950 DATE OF ADMISSION: 12/23/2018 14:36 (ADMITTING CLERK) PHONE: AGE: 68 N# [id number] GENDER: Female ENCOUNTER PHYSICIAN: Dr. Jesse Martinez M.D. 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 EATING: EATING - STEP 1: Does the patient complete the activity by him/herself with no assistance (physical, verbal/nonverbal cueing, setup/clean-up)? No. EATING - STEP 2: Does the patient need only setup/clean-up assistance from one helper? No. EATING - STEP 3: Does the patient need only verbal/nonverbal cueing or touching/steadying/contact guard assistance fro m one helper? Yes. 1. [id number] ADMISSION PERFORMANCE: Supervision or touching assistance CODE: 04 ORAL HYGIENE: ORAL HYGIENE - STEP 1: Does the patient complete the activity by him/herself with no assistance (physical, verbal/nonverbal cueing, setup/clean-up)? No. ORAL HYGIENE - STEP 2: Does the patient need only setup/clean-up assistance from one helper? Yes. 1. [id number] ADMISSION PERFORMANCE: Setup or clean-up assistance CODE: 05 TOILETING HYGIENE: TOILETING HYGIENE - STEP 1: Does the patient complete the activity by him/herself with no assistance (physical, verbal/nonverbal cueing, setup/clean-up)? No. TOILETING HYGIENE - STEP 2: Does the patient need only setup/clean-up assistance from one helper? No. TOILETING HYGIENE - STEP 3: Does the patient need only verbal/nonverbal cueing or touching/steadying/contact guard assistance fro m one helper? Yes. 1. [id number] ADMISSION PERFORMANCE: Supervision or touching assistance CODE: 04 BATHING: Not assessed/no information CODE: - DRESSING - UPPER BODY: DRESSING - UPPER BODY - STEP 1: Does the patient complete the activity by him/herself with no assistance (physical, verbal/nonverbal cueing, setup/clean-up)? No. DRESSING - UPPER BODY - STEP 2: Does the patient need only setup/clean-up assistance from one helper? Yes. 1. [id number] ADMISSION PERFORMANCE: Setup or clean-up assistance CODE: 05 DRESSING - LOWER BODY: DRESSING - LOWER BODY - STEP 1: Does the patient complete the activity by him/herself with no assistance (physical, verbal/nonverbal cueing, setup/clean-up)? No. DRESSING - LOWER BODY - STEP 2: Does the patient need only setup/clean-up assistance from one helper? Yes. 1. [id number] ADMISSION PERFORMANCE: Setup or clean-up assistance CODE: 05 PUTTING ON/TAKING OFF FOOTWEAR: Not assessed/no information CODE: - ROLL LEFT AND RIGHT: ROLL LEFT AND RIGHT - STEP 1: Does the patient complete the activity by him/herself with no assistance (physical, verbal/nonverbal cueing, setup/clean-up)? No. ROLL LEFT AND RIGHT - STEP 2: Does the patient need only setup/clean-up assistance from one helper? No. ROLL LEFT AND RIGHT - STEP 3: Does the patient need only verbal/nonverbal cueing or touching/steadying/contact guard assistance fro m one helper? Yes. 1. [id number] ADMISSION PERFORMANCE: Supervision or touching assistance CODE: 04 SIT TO LYING: SIT TO LYING - STEP 1: Does the patient complete the activity by him/herself with no assistance (physical, verbal/nonverbal cueing, setup/clean-up)? No. SIT TO LYING - STEP 2: Does the patient need only setup/clean-up assistance from one helper? No. SIT TO LYING - STEP 3: Does the patient need only verbal/nonverbal cueing or touching/steadying/contact guard assistance fro m one helper? Yes. 1. [id number] ADMISSION PERFORMANCE: Supervision or touching assistance CODE: 04 LYING TO SITTING: LYING TO SITTING ON SIDE OF BED - STEP 1: Does the patient complete the activity by him/herself with no assistance (physical, verbal/nonverbal cueing, setup/clean-up)? No. LYING TO SITTING ON SIDE OF BED - STEP 2: Does the patient need only setup/clean-up assistance from one helper? No. LYING TO SITTING ON SIDE OF BED - STEP 3: Does the patient need only verbal/nonverbal cueing or touching/steadying/contact guard assistance fro m one helper? Yes. 1. [id number] ADMISSION PERFORMANCE: Supervision or touching assistance CODE: 04 SIT TO STAND: SIT TO STAND - STEP 1: Does the patient complete the activity by him/herself with no assistance (physical, verbal/nonverbal cueing, setup/clean-up)? No. SIT TO STAND - STEP 2: Does the patient need only setup/clean-up assistance from one helper? No. SIT TO STAND - STEP 3: Does the patient need only verbal/nonverbal cueing or touching/steadying/contact guard assistance fro m one helper? Yes. 1. [id number] ADMISSION PERFORMANCE: Supervision or touching assistance CODE: 04 TRANSFERS: BED, CHAIR: CHAIR/[id number] TRANSFER - STEP 1: Does the patient complete the activity by him/herself with no assistance (physical, verbal/nonverbal cueing, setup/clean-up)? No. CHAIR/[id number] TRANSFER - STEP 2: Does the patient need only setup/clean-up assistance from one helper? No. CHAIR/[id number] TRANSFER - STEP 3: Does the patient need only verbal/nonverbal cueing or touching/steadying/contact guard assistance fro m one helper? Yes. 1. [id number] ADMISSION PERFORMANCE: Supervision or touching assistance CODE: 04 TRANSFER TOILET: TOILET TRANSFER - STEP 1: Does the patient complete the activity by him/herself with no assistance (physical, verbal/nonverbal cueing, setup/clean-up)? No. TOILET TRANSFER - STEP 2: Does the patient need only setup/clean-up assistance from one helper? No. TOILET TRANSFER - STEP 3: Does the patient need only verbal/nonverbal cueing or touching/steadying/contact guard assistance fro m one helper? Yes. 1. [id number] ADMISSION PERFORMANCE: Supervision or touching assistance CODE: 04 TRANSFERS: CAR: Not assessed/no information CODE: - WALK 10 FEET: Not assessed/no information CODE: - 1 STEP (CURB): Not assessed/no information CODE: - PICKING UP OBJECT: Not assessed/no information CODE: - DOES THE PATIENT USE A WHEELCHAIR/SCOOTER? Q1. DOES THE PATIENT USE A WHEELCHAIR/SCOOTER?: Yes CODE: 1 WHEEL 50 FEET WITH TWO TURNS: Not assessed/no information WHEEL 50 FEET WITH TWO TURNS - STEP 1: Does the patient complete the activity by him/herself with no assistance (physical, verbal/nonverbal cueing, setup/clean-up)? No. WHEEL 50 FEET WITH TWO TURNS - STEP 2: Does the patient need only setup/clean-up assistance from one helper? No. WHEEL 50 FEET WITH TWO TURNS - STEP 3: Does the patient need only verbal/nonverbal cueing or touching/steadying/contact guard assistance fro m one helper? Yes. 1. [id number] ADMISSION PERFORMANCE: Supervision or touching assistance CODE: 04 INDICATE THE TYPE OF WHEELCHAIR/SCOOTER USED: RR1. INDICATE THE TYPE OF WHEELCHAIR/SCOOTER USED.: Manual CODE: 1 WHEEL 150 FEET: WHEEL 150 FEET - STEP 1: Does the patient complete the activity by him/herself with no assistance (physical, verbal/nonverbal cueing, setup/clean-up)? No. WHEEL 150 FEET - STEP 2: Does the patient need only setup/clean-up assistance from one helper? No. WHEEL 150 FEET - STEP 3: Does the patient need only verbal/nonverbal cueing or touching/steadying/contact guard assistance fro m one helper? Yes. 1. [id number] ADMISSION PERFORMANCE: Supervision or touching assistance CODE: 04 INDICATE THE TYPE OF WHEELCHAIR/SCOOTER USED: SS1. INDICATE THE TYPE OF WHEELCHAIR/SCOOTER USED.: Manual CODE: 1 BLADDER AND BOWEL: H350. BLADDER CONTINENCE (3-DAY ASSESSMENT PERIOD): Incontinent less than daily (e.g., once or twice during the 3-day assessment period) CODE: 2 H400. BOWEL CONTINENCE (3-DAY ASSESSMENT PERIOD): Always continent CODE: 0 SIGNATURE PANEL: The following modified sections: 1. [id number] Admission Performance, 1. [id number] Admission Performance, 1. KS0869I Admission Performance, 1. HM0473L Admission Performance, 1. [id number] Admission Performance, 1. KZ8885i Admission Performance, 1. [id number] Admission Performance, 1. MA0542L Admission Performance , 1. WL0555A Admission Performance, 1. [id number] Admission Performance, 1. [id number] Admission Performanc e, 1. [id number] Admission Performance, 1. [id number] Admission Performance, Q1. Does the patient use a whe elchair/scooter?, RR1. Indicate the type of wheelchair/scooter used., 1. [id number] Admission Performanc e, 1. FW3884G Admission Performance, 1. US4538Z Admission Performance, Code, 1. CS4766Q Admission Per formance, SS1. Indicate the type of wheelchair/scooter used., H350. Bladder Continence (3-day assessm ent period), H400. Bowel Continence (3-day assessment period) were [electronically] signed by Susie Sánchez C.N.A. on TueJan 08 2019 16:46:08 GMT-0600 (Central Standard Time)
[2019-01-08] MEDS: DOCUSATE NA/SENNA CONC 1 TAB PO SCH (21:00)
[2019-01-08] MEDS: ATORVASTATIN 80 MG TAB PO SCH (21:37)
[2019-01-08] MEDS: CYCLOBENZAPRINE 10 MG TAB PO PRN (21:37)
[2019-01-08] MEDS: TOPIRAMATE 25 MG TAB PO SCH (21:37)
[2019-01-09] MEDS: METOPROLOL TAR 25 MG TAB PO SCH (05:08)
[2019-01-09] MEDS: INSULIN -REGULAR HUMAN 50 UNIT/0.5 ML ML SQ SCH ×4 (07:30→20:55)
[2019-01-09] MEDS: PROMOD 30 ML DOSE PO SCH ×2 (08:00→20:00)
[2019-01-09] MEDS: LOSARTAN POTASSIUM 50 MG TABLET PO SCH (08:41)
[2019-01-09] MEDS: DIPYRIDAMOLE/ASPIRIN CAP ER PO SCH ×2 (08:41→20:12)
[2019-01-09] MEDS: POTASSIUM 25 MEQ EFFERV TAB PO SCH ×2 (08:41→20:12)
[2019-01-09] MEDS: NA CHLORIDE 0.9% 1,000 ML IV SCH ×2 (14:00→15:33)
--- NOTE | 2019-01-09 14:52 | FAST ---
SHIFT START DATE/TIME: 01/09/2019 07:00 ([employer]) SHIFT END DATE/TIME: 01/09/2019 19:00 ([employer]) NAME GRACIE GRIJALVA DATE OF : 1950 DATE OF ADMISSION: 12/23/2018 14:36 ([employer]) PHONE: AGE: 68 N# [id number] GENDER: Female ENCOUNTER PHYSICIAN: Dr. Jesse Martinez M.D. 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 EATING: EATING - STEP 1: Does the patient complete the activity by him/herself with no assistance (physical, verbal/nonverbal cueing, setup/clean-up)? No. EATING - STEP 2: Does the patient need only setup/clean-up assistance from one helper? No. EATING - STEP 3: Does the patient need only verbal/nonverbal cueing or touching/steadying/contact guard assistance fro m one helper? Yes. 1. [id number] ADMISSION PERFORMANCE: Supervision or touching assistance CODE: 04 ORAL HYGIENE: ORAL HYGIENE - STEP 1: Does the patient complete the activity by him/herself with no assistance (physical, verbal/nonverbal cueing, setup/clean-up)? No. ORAL HYGIENE - STEP 2: Does the patient need only setup/clean-up assistance from one helper? No. ORAL HYGIENE - STEP 3: Does the patient need only verbal/nonverbal cueing or touching/steadying/contact guard assistance fro m one helper? Yes. 1. [id number] ADMISSION PERFORMANCE: Supervision or touching assistance CODE: 04 TOILETING HYGIENE: TOILETING HYGIENE - STEP 1: Does the patient complete the activity by him/herself with no assistance (physical, verbal/nonverbal cueing, setup/clean-up)? No. TOILETING HYGIENE - STEP 2: Does the patient need only setup/clean-up assistance from one helper? No. TOILETING HYGIENE - STEP 3: Does the patient need only verbal/nonverbal cueing or touching/steadying/contact guard assistance fro m one helper? Yes. 1. [id number] ADMISSION PERFORMANCE: Supervision or touching assistance CODE: 04 BATHING: Not assessed/no information CODE: - DRESSING - UPPER BODY: DRESSING - UPPER BODY - STEP 1: Does the patient complete the activity by him/herself with no assistance (physical, verbal/nonverbal cueing, setup/clean-up)? No. DRESSING - UPPER BODY - STEP 2: Does the patient need only setup/clean-up assistance from one helper? Yes. 1. [id number] ADMISSION PERFORMANCE: Setup or clean-up assistance CODE: 05 DRESSING - LOWER BODY: DRESSING - LOWER BODY - STEP 1: Does the patient complete the activity by him/herself with no assistance (physical, verbal/nonverbal cueing, setup/clean-up)? No. DRESSING - LOWER BODY - STEP 2: Does the patient need only setup/clean-up assistance from one helper? Yes. 1. [id number] ADMISSION PERFORMANCE: Setup or clean-up assistance CODE: 05 PUTTING ON/TAKING OFF FOOTWEAR: Not assessed/no information CODE: - ROLL LEFT AND RIGHT: ROLL LEFT AND RIGHT - STEP 1: Does the patient complete the activity by him/herself with no assistance (physical, verbal/nonverbal cueing, setup/clean-up)? No. ROLL LEFT AND RIGHT - STEP 2: Does the patient need only setup/clean-up assistance from one helper? No. ROLL LEFT AND RIGHT - STEP 3: Does the patient need only verbal/nonverbal cueing or touching/steadying/contact guard assistance fro m one helper? Yes. 1. [id number] ADMISSION PERFORMANCE: Supervision or touching assistance CODE: 04 SIT TO LYING: SIT TO LYING - STEP 1: Does the patient complete the activity by him/herself with no assistance (physical, verbal/nonverbal cueing, setup/clean-up)? No. SIT TO LYING - STEP 2: Does the patient need only setup/clean-up assistance from one helper? No. SIT TO LYING - STEP 3: Does the patient need only verbal/nonverbal cueing or touching/steadying/contact guard assistance fro m one helper? Yes. 1. [id number] ADMISSION PERFORMANCE: Supervision or touching assistance CODE: 04 LYING TO SITTING: LYING TO SITTING ON SIDE OF BED - STEP 1: Does the patient complete the activity by him/herself with no assistance (physical, verbal/nonverbal cueing, setup/clean-up)? No. LYING TO SITTING ON SIDE OF BED - STEP 2: Does the patient need only setup/clean-up assistance from one helper? No. LYING TO SITTING ON SIDE OF BED - STEP 3: Does the patient need only verbal/nonverbal cueing or touching/steadying/contact guard assistance fro m one helper? Yes. 1. [id number] ADMISSION PERFORMANCE: Supervision or touching assistance CODE: 04 SIT TO STAND: SIT TO STAND - STEP 1: Does the patient complete the activity by him/herself with no assistance (physical, verbal/nonverbal cueing, setup/clean-up)? No. SIT TO STAND - STEP 2: Does the patient need only setup/clean-up assistance from one helper? No. SIT TO STAND - STEP 3: Does the patient need only verbal/nonverbal cueing or touching/steadying/contact guard assistance fro m one helper? No. SIT TO STAND - STEP 4: Does the patient need physical assistance - for example lifting or trunk support from one helper - wi th the helper providing less than half of the effort? Yes. 1. [id number] ADMISSION PERFORMANCE: Partial/moderate assistance CODE: 03 TRANSFERS: BED, CHAIR: CHAIR/[id number] TRANSFER - STEP 1: Does the patient complete the activity by him/herself with no assistance (physical, verbal/nonverbal cueing, setup/clean-up)? No. CHAIR/[id number] TRANSFER - STEP 2: Does the patient need only setup/clean-up assistance from one helper? No. CHAIR/[id number] TRANSFER - STEP 3: Does the patient need only verbal/nonverbal cueing or touching/steadying/contact guard assistance fro m one helper? No. CHAIR/[id number] TRANSFER - STEP 4: Does the patient need physical assistance - for example lifting or trunk support from one helper - wi th the helper providing less than half of the effort? Yes. 1. [id number] ADMISSION PERFORMANCE: Partial/moderate assistance CODE: 03 TRANSFER TOILET: TOILET TRANSFER - STEP 1: Does the patient complete the activity by him/herself with no assistance (physical, verbal/nonverbal cueing, setup/clean-up)? No. TOILET TRANSFER - STEP 2: Does the patient need only setup/clean-up assistance from one helper? No. TOILET TRANSFER - STEP 3: Does the patient need only verbal/nonverbal cueing or touching/steadying/contact guard assistance fro m one helper? No. TOILET TRANSFER - STEP 4: Does the patient need physical assistance - for example lifting or trunk support from one helper - wi th the helper providing less than half of the effort? Yes. 1. [id number] ADMISSION PERFORMANCE: Partial/moderate assistance CODE: 03 TRANSFERS: CAR: Not assessed/no information CODE: - WALK 10 FEET: Not assessed/no information CODE: - 1 STEP (CURB): Not assessed/no information CODE: - PICKING UP OBJECT: Not assessed/no information CODE: - DOES THE PATIENT USE A WHEELCHAIR/SCOOTER? Q1. DOES THE PATIENT USE A WHEELCHAIR/SCOOTER?: Yes CODE: 1 WHEEL 50 FEET WITH TWO TURNS: WHEEL 50 FEET WITH TWO TURNS - STEP 1: Does the patient complete the activity by him/herself with no assistance (physical, verbal/nonverbal cueing, setup/clean-up)? No. WHEEL 50 FEET WITH TWO TURNS - STEP 2: Does the patient need only setup/clean-up assistance from one helper? No. WHEEL 50 FEET WITH TWO TURNS - STEP 3: Does the patient need only verbal/nonverbal cueing or touching/steadying/contact guard assistance fro m one helper? No. WHEEL 50 FEET WITH TWO TURNS - STEP 4: Does the patient need physical assistance - for example lifting or trunk support from one helper - wi th the helper providing less than half of the effort? No. WHEEL 50 FEET WITH TWO TURNS - STEP 5: Does the patient need physical assistance - for example lifting or trunk support from one helper - wi th the helper providing more than half of the effort? Yes. 1. [id number] ADMISSION PERFORMANCE: Substantial/maximal assistance CODE: 02 INDICATE THE TYPE OF WHEELCHAIR/SCOOTER USED: RR1. INDICATE THE TYPE OF WHEELCHAIR/SCOOTER USED.: Manual CODE: 1 WHEEL 150 FEET: WHEEL 150 FEET - STEP 1: Does the patient complete the activity by him/herself with no assistance (physical, verbal/nonverbal cueing, setup/clean-up)? No. WHEEL 150 FEET - STEP 2: Does the patient need only setup/clean-up assistance from one helper? No. WHEEL 150 FEET - STEP 3: Does the patient need only verbal/nonverbal cueing or touching/steadying/contact guard assistance fro m one helper? No. WHEEL 150 FEET - STEP 4: Does the patient need physical assistance - for example lifting or trunk support from one helper - wi th the helper providing less than half of the effort? No. WHEEL 150 FEET - STEP 5: Does the patient need physical assistance - for example lifting or trunk support from one helper - wi th the helper providing more than half of the effort? Yes. 1. [id number] ADMISSION PERFORMANCE: Substantial/maximal assistance CODE: 02 INDICATE THE TYPE OF WHEELCHAIR/SCOOTER USED: SS1. INDICATE THE TYPE OF WHEELCHAIR/SCOOTER USED.: Manual CODE: 1 BLADDER AND BOWEL: H350. BLADDER CONTINENCE (3-DAY ASSESSMENT PERIOD): Incontinent daily (at least once a day) CODE: 3 H400. BOWEL CONTINENCE (3-DAY ASSESSMENT PERIOD): Always continent CODE: 0 SIGNATURE PANEL: The following modified sections: 1. [id number] Admission Performance, 1. [id number] Admission Performance, 1. [id number] Admission Performance, 1. [id number] Admission Performance, 1. [id number] Admission Performance, 1. [id number] Admission Performance, 1. [id number] Admission Performance, 1. [id number] Admission Performance , 1. [id number] Admission Performance, 1. [id number] Admission Performance, 1. VT4262N Admission Performanc e, 1. [id number] Admission Performance, 1. NL5014E Admission Performance, Q1. Does the patient use a whe elchair/scooter?, 1. BX3127K Admission Performance, RR1. Indicate the type of wheelchair/scooter used ., 1. [id number] Admission Performance, Code, SS1. Indicate the type of wheelchair/scooter used., H350. Bladder Continence (3-day assessment period), H400. Bowel Continence (3-day assessment period) were [ electronically] signed by Susie Ugarte C.N.A. on TueJan 09 2019 14:52:10 GMT-0600 (Central Standard Time)
--- NOTE | 2019-01-09 17:41 | R.PN ---
ENCOUNTER DATE AND TIME: 01/08/2019 17:36 (ECHOCARDIOGRAPH TECH) NAME GRACIE VALADEZ DATE OF : 1950 DATE OF ADMISSION: 12/23/2018 14:36 (ECHOCARDIOGRAPH TECH) Acute to subacute infarct Right Lentiform Nucleus and Adjacent CaudateCHIEF COMPLAINT: Dysarthria, dysphagia, left hemiparesis, incoordination. SUBJECTIVE: Pt denied any Shortness of Breath. Pt denied any depression. Labs reviewed and are stable. She is making fair overall progress with physical, occupational. She fa iled a repeat barium swallow study except pureed diet. She has very poor labial, lingual and guttural sounds. Poor progress made recovering speech sounds. She also has difficulty communicating in writin g. She requires verbal-tactile cues for accurate positioning and timing for proper strategy. She tolerat ed single sips of nectar thickened liquids. Propelled wheelchair 250' with standby assistance. She will likely require a PEG tube due to severe dysphagia. Ambulated 550' with standby assistance using a rolling walker. VITAL SIGNS Temperature: 97.6 F SBP/DBP: 138/68 Pulse: 70 Resp: 15 MEDICATION ALLERGIES: No Known Drug Allergies (NKDA) ENVIRONMENTAL ALLERGIES: None Known - Substance Allergies None Known - Other Allergies None Known NURSING: - Shower allowing shower - Bladder care per protocol - Skin care per protocol PRECAUTIONS: - Weight Bearing Precaution WBAT left LE ACTIVITIES OOB only with supervision THERAPIES: - Occupational Therapy Cognitive Retraining. Visual Perceptual Training. - Dietary and Nutrition Adequate Nutrition. Nutritional Education. Nutritional Supplements. - Speech Therapy Cognitive Training. Dysphagia Therapy. Expressive Language Skills. Memory Strategies. Receptive Langu age Skills. Speech Intelligibility Training. PHYSICAL EXAM - Gen Alert and awake Lying in bed No apparent distress Oriented to: person, time, and place - Skin No skin breakdown. Normacephalic - Eyes No abnormalities - ENMT No abnormalities - Neck No abnormalities - CVS RRR - Chest Clear - Resp No wheezing - Abd + bowel sounds - GI Non distended Deferred - No abnormalities - Ext No significant edema - MSK 3+/5 weakness in left upper and 4+/5 in left lower extremity - Neuro 3+/5 weakness in left upper and 4+/5 in left lower extremity - Psych No abnormalities ASSESSMENT: Pt. is a 68 yo Right-handed black female.On 12/19/2018 Pt. presented to [facility] with sudden on set of left-side weakness.On 12/19/2018 she was admitted to [facility] with diagnosis Acute to julian bacute infarct Right Lentiform Nucleus and Adjacent Caudate.Her impairment category is Stroke 01 - L eft Body (Right Brain) (01.1).Pre-morbidly, Pt. was independent/mod-I in Locomotion, Safety Awareness , Balance, Social Cognition, Transfers Control, Sphincter Control, Self-Care, and Endurance; and she had good Balance, Endurance, Locomotion, Transfers Control, Communication, and Social Cognition.Curre ntly, she has deficits of Locomotion, Safety Awareness, Balance, Transfers Control, Self-Care, and Co mmunication.Pt. is now referred to [facility] for acute in-patient rehabilitat ion in order to maximize patient's functional independence in activities of daily living, strength, R OM, and mobility.- Rehab Goal Patient has realistic goal of being discharged at assistance level 6-Erica to reside at Home with Fam elis/Relatives. MDM/PLAN: - Physical Therapy Gait dysfunction - to improve, our physical therapists will perform initial evaluation of pt's statu s upon admission and devise an individualized program for Gait Training, and Wheel Chair mobility Inability to transfer - to improve, our physical therapists will perform initial evaluation of pt's status upon admission and devise an individualized program for Bed mobility Need for home safety evaluation - to improve, our physical therapists will perform initial evaluatio n of pt's status upon admission and devise an individualized program for Home Evaluation Need in caregiver upon discharge - to improve, our physical therapists will perform initial evaluati on of pt's status upon admission and devise an individualized program for Caregiver Training Edema - to improve, our physical therapists will perform initial evaluation of pt's status upon admi ssion and devise an individualized program for Elevation Training, and Lymphedema Therapy New precaution - to improve, our physical therapists will perform initial evaluation of pt's status upon admission and devise an individualized program for Patient precaution education Poor balance - to improve, our physical therapists will perform initial evaluation of pt's status up on admission and devise an individualized program for Balance Training Weakness - to improve, our physical therapists will perform initial evaluation of pt's status upon a dmission and devise an individualized program for Aquatic Therapy, Neuromuscular Reeducation, and Str engthening Achieving independence - to improve, our physical therapists will perform initial evaluation of pt's status upon admission and devise an individualized program for Community Reintegration Activities - Occupational Therapy ADL deficits - to improve, our occupation therapists will perform initial evaluation of pt's status upon admission and devise an individualized program for Bathing, Bed mobility, Community Reintegratio n, Cooking, Dressing, Eating, Fine Motor Skills, Grooming, Homemaking, Kitchen Mobility, Laundry, Pat ient Education, Safety Awareness, Splinting - Positioning, Transfers(Toilet, Tub, Shower), and Wheel Chair Management Need for care specialist - to improve, our occupation therapists will perform initial evaluation of pt's status upon admission and devise an individualized program for Caregiver Training Weakness - to improve, our occupation therapists will perform initial evaluation of pt's status upon admission and devise an individualized program for Aquatic Therapy, Balance, Endurance, UE ROM, and UE strengthening - Other See attached MAR (Medication Administration Record) [email or web address] See attached MAR (Medication Administration Record) - Diet Type Continue Regular - Diet - Liquid Texture Continue Thin - Tube Feed Continue N/A - Bladder care per protocol - Weight Bearing Precaution WBAT left LE - Skin care per protocol - Diet - Solid Texture Continue Regular Continue Pureed - Shower allowing shower for Dementia, TBI, Stroke, or others FUNCTIONAL STATUS: UPDATED AT WEEKLY TEAM CONFERENCE - Bladder Same accident frequency: 7-Ind - No accidents in the past 7 days - Bowel Same accident frequency: 7-Ind - No accidents in the past 7 days - Walking Same score based on distance walked: 1(<=50ft) - Wheelchair Same score based on distance traveled: 0(N/A) FUNCTIONAL STATUS: - Self-Care A. Eating modA B. Grooming sup C. Bathing Kiersten D. Dressing - Upper Kiersten E. Dressing - Lower Kiersten F. Toileting modA - Sphincter Control G. Bladder control sup H. Bowel control sup - Transfers Control I. Bed/Chair/Wheelchair modA J. Toilet modA K. Tub/Shower modA - Locomotion L. Walk/Wheelchair (W) modA M. Stairs maxA - Communication N. Comprehension (B) sup O. Expression (B) modA - Social Cognition P. Social Interaction sup Q. Problem Solving sup R. Memory Ind - Endurance Good - Balance Good - Safety Awareness Good QI SCORES: - Self-Care A. Eating 03-Partial/moderate assistance B. Oral hygiene 03-Partial/moderate assistance C. Toileting hygiene 03-Partial/moderate assistance E. Shower/bathe self 03-Partial/moderate assistance F. Upper body dressing 03-Partial/moderate assistance G. Lower body dressing 03-Partial/moderate assistance H. Putting on/taking off footwear 02-Substantial/maximal assistance - Mobility A. Roll left and right 03-Partial/moderate assistance B. Sit to lying 03-Partial/moderate assistance C. Lying to sitting on side of bed 03-Partial/moderate assistance D. Sit to stand 04-Supervision or touching assistance E. Chair/[id number] transfer 04-Supervision or touching assistance F. Toilet transfer 03-Partial/moderate assistance G. Car transfer 88-Not attempted due to medical condition or safety concerns I. Walk 10 feet 04-Supervision or touching assistance J. Walk 50 feet with two turns 88-Not attempted due to medical condition or safety concerns K. Walk 150 feet 88-Not attempted due to medical condition or safety concerns L. Walking 10 feet on uneven surfaces 88-Not attempted due to medical condition or safety concerns M. 1 step (curb) 88-Not attempted due to medical condition or safety concerns N. 4 steps 88-Not attempted due to medical condition or safety concerns O. 12 steps 88-Not attempted due to medical condition or safety concerns P. Picking up object 88-Not attempted due to medical condition or safety concerns R. Wheel 50 feet with two turns 88-Not attempted due to medical condition or safety concerns S. Wheel 150 feet 88-Not attempted due to medical condition or safety concerns - Bladder and Bowel Bladder continence 0-Always continent Bowel continence 0-Always continent - Endurance Fair - Balance Fair - Safety Awareness Fair CURRENT FUNC. DEFICITS: Self-Care, Mobility, Endurance, Balance, and Safety Awareness SIGNATURE PANEL: (ECHOCARDIOGRAPH TECH)
[2019-01-09] MEDS: CYCLOBENZAPRINE 10 MG TAB PO PRN (20:11)
[2019-01-09] MEDS: TOPIRAMATE 25 MG TAB PO SCH (20:12)
[2019-01-09] MEDS: ATORVASTATIN 80 MG TAB PO SCH (20:12)
[2019-01-09] MEDS: DOCUSATE NA/SENNA CONC 1 TAB PO SCH (20:12)
[2019-01-10] MEDS: METOPROLOL TAR 25 MG TAB PO SCH (05:15)
[2019-01-10] MEDS: INSULIN -REGULAR HUMAN 50 UNIT/0.5 ML ML SQ SCH ×4 (07:30→20:01)
[2019-01-10] MEDS: PROMOD 30 ML DOSE PO SCH ×2 (08:00→18:50)
[2019-01-10] MEDS: POTASSIUM 25 MEQ EFFERV TAB PO SCH ×2 (08:19→18:44)
[2019-01-10] MEDS: LOSARTAN POTASSIUM 50 MG TABLET PO SCH (08:20)
[2019-01-10] MEDS: DIPYRIDAMOLE/ASPIRIN CAP ER PO SCH ×2 (08:22→18:44)
[2019-01-10] MEDS: CYCLOBENZAPRINE 10 MG TAB PO PRN ×2 (10:21→18:44)
[2019-01-10] MEDS: NAPROXEN 250 MG TAB PO PRN ×2 (10:22→21:32)
[2019-01-10] MEDS: ENSURE PUDDING 4 OZ CUP PO SCH ×2 (10:26→14:49)
[2019-01-10] MEDS: DOCUSATE NA/SENNA CONC 1 TAB PO SCH (18:44)
[2019-01-10] MEDS: TOPIRAMATE 25 MG TAB PO SCH (18:44)
[2019-01-10] MEDS: ATORVASTATIN 80 MG TAB PO SCH (18:47)
[2019-01-11] MEDS: METOPROLOL TAR 25 MG TAB PO SCH (05:21)
[2019-01-11 06:37] LABS: Absolute Lymphocytes (CBC) 1.3 K/uL (0.7-4.9); Basophils % 0.6 % (0-1.3); Hematocrit 33.2 % (36.0-45.0); Lymphocytes % 16.4 % (15.3-44.8); MPV 9.7 fL (7.6-11.3); RBC Red Blood Cell Count 4.02 M/uL (3.86-4.86)
[2019-01-11 06:40] LABS: Albumin 3.1 g/dL (3.4-5.0); Magnesium 2.4 mg/dL (1.8-2.4); Potassium 3.6 mmol/L (3.5-5.1)
[2019-01-11] MEDS: INSULIN -REGULAR HUMAN 50 UNIT/0.5 ML ML SQ SCH ×4 (07:28→20:38)
[2019-01-11] MEDS: PROMOD 30 ML DOSE PO SCH ×2 (08:00→20:00)
[2019-01-11] MEDS: POTASSIUM 25 MEQ EFFERV TAB PO SCH ×2 (09:03→20:36)
[2019-01-11] MEDS: LOSARTAN POTASSIUM 50 MG TABLET PO SCH (09:04)
[2019-01-11] MEDS: DIPYRIDAMOLE/ASPIRIN CAP ER PO SCH ×2 (09:04→20:36)
[2019-01-11] MEDS: NAPROXEN 250 MG TAB PO PRN ×2 (09:23→20:38)
[2019-01-11] MEDS: CYCLOBENZAPRINE 10 MG TAB PO PRN ×2 (09:23→20:36)
[2019-01-11] MEDS: ENSURE PUDDING 4 OZ CUP PO SCH ×2 (12:56→14:47)
--- NOTE | 2019-01-11 14:54 | FAST ---
ENCOUNTER DATE AND TIME: 01/11/2019 08:00 (COUNSELOR/ART THERAPIST) NAME GRACIE GRIJALVA DATE OF : 1950 DATE OF ADMISSION: 12/23/2018 14:36 (COUNSELOR/ART THERAPIST) PHONE: AGE: 68 N# [id number] GENDER: Female ENCOUNTER PHYSICIAN: Dr. Jesse Martinez M.D. 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 ROLL LEFT AND RIGHT: ROLL LEFT AND RIGHT - STEP 1: Does the patient complete the activity by him/herself with no assistance (physical, verbal/nonverbal cueing, setup/clean-up)? No. ROLL LEFT AND RIGHT - STEP 2: Does the patient need only setup/clean-up assistance from one helper? No. ROLL LEFT AND RIGHT - STEP 3: Does the patient need only verbal/nonverbal cueing or touching/steadying/contact guard assistance fro m one helper? Yes. 1. [id number] ADMISSION PERFORMANCE: Supervision or touching assistance CODE: 04 SIT TO LYING: SIT TO LYING - STEP 1: Does the patient complete the activity by him/herself with no assistance (physical, verbal/nonverbal cueing, setup/clean-up)? No. SIT TO LYING - STEP 2: Does the patient need only setup/clean-up assistance from one helper? No. SIT TO LYING - STEP 3: Does the patient need only verbal/nonverbal cueing or touching/steadying/contact guard assistance fro m one helper? Yes. 1. [id number] ADMISSION PERFORMANCE: Supervision or touching assistance CODE: 04 LYING TO SITTING: LYING TO SITTING ON SIDE OF BED - STEP 1: Does the patient complete the activity by him/herself with no assistance (physical, verbal/nonverbal cueing, setup/clean-up)? No. LYING TO SITTING ON SIDE OF BED - STEP 2: Does the patient need only setup/clean-up assistance from one helper? No. LYING TO SITTING ON SIDE OF BED - STEP 3: Does the patient need only verbal/nonverbal cueing or touching/steadying/contact guard assistance fro m one helper? Yes. 1. [id number] ADMISSION PERFORMANCE: Supervision or touching assistance CODE: 04 SIT TO STAND: SIT TO STAND - STEP 1: Does the patient complete the activity by him/herself with no assistance (physical, verbal/nonverbal cueing, setup/clean-up)? No. SIT TO STAND - STEP 2: Does the patient need only setup/clean-up assistance from one helper? No. SIT TO STAND - STEP 3: Does the patient need only verbal/nonverbal cueing or touching/steadying/contact guard assistance fro m one helper? Yes. 1. [id number] ADMISSION PERFORMANCE: Supervision or touching assistance CODE: 04 TRANSFERS: BED, CHAIR: CHAIR/[id number] TRANSFER - STEP 1: Does the patient complete the activity by him/herself with no assistance (physical, verbal/nonverbal cueing, setup/clean-up)? No. CHAIR/[id number] TRANSFER - STEP 2: Does the patient need only setup/clean-up assistance from one helper? No. CHAIR/[id number] TRANSFER - STEP 3: Does the patient need only verbal/nonverbal cueing or touching/steadying/contact guard assistance fro m one helper? Yes. 1. [id number] ADMISSION PERFORMANCE: Supervision or touching assistance CODE: 04 TRANSFER TOILET: TOILET TRANSFER - STEP 1: Does the patient complete the activity by him/herself with no assistance (physical, verbal/nonverbal cueing, setup/clean-up)? No. TOILET TRANSFER - STEP 2: Does the patient need only setup/clean-up assistance from one helper? No. TOILET TRANSFER - STEP 3: Does the patient need only verbal/nonverbal cueing or touching/steadying/contact guard assistance fro m one helper? Yes. 1. [id number] ADMISSION PERFORMANCE: Supervision or touching assistance CODE: 04 TRANSFERS: CAR: Not attempted due to environmental limitations (e.g., lack of equipment, weather constraints) CODE: 10 WALK 10 FEET: WALK 10 FEET - STEP 1: Does the patient complete the activity by him/herself with no assistance (physical, verbal/nonverbal cueing, setup/clean-up)? No. WALK 10 FEET - STEP 2: Does the patient need only setup/clean-up assistance from one helper? Yes. 1. [id number] ADMISSION PERFORMANCE: Setup or clean-up assistance CODE: 05 WALK 50 FEET: WALK 50 FEET - STEP 1: Does the patient complete the activity by him/herself with no assistance (physical, verbal/nonverbal cueing, setup/clean-up)? No. WALK 50 FEET - STEP 2: Does the patient need only setup/clean-up assistance from one helper? Yes. 1. [id number] ADMISSION PERFORMANCE: Setup or clean-up assistance CODE: 05 WALK 150 FEET: WALK 150 FEET - STEP 1: Does the patient complete the activity by him/herself with no assistance (physical, verbal/nonverbal cueing, setup/clean-up)? No. WALK 150 FEET - STEP 2: Does the patient need only setup/clean-up assistance from one helper? Yes. 1. [id number] ADMISSION PERFORMANCE: Setup or clean-up assistance CODE: 05 WALK 10 FEET UNEVEN: Not attempted due to medical condition or safety concerns CODE: 88 1 STEP (CURB): 1 STEP CURB - STEP 1: Does the patient complete the activity by him/herself with no assistance (physical, verbal/nonverbal cueing, setup/clean-up)? No. 1 STEP CURB - STEP 2: Does the patient need only setup/clean-up assistance from one helper? No. 1 STEP CURB - STEP 3: Does the patient need only verbal/nonverbal cueing or touching/steadying/contact guard assistance fro m one helper? Yes. 1. [id number] ADMISSION PERFORMANCE: Supervision or touching assistance CODE: 04 4 STEPS: 4 STEPS - STEP 1: Does the patient complete the activity by him/herself with no assistance (physical, verbal/nonverbal cueing, setup/clean-up)? No. 4 STEPS - STEP 2: Does the patient need only setup/clean-up assistance from one helper? No. 4 STEPS - STEP 3: Does the patient need only verbal/nonverbal cueing or touching/steadying/contact guard assistance fro m one helper? Yes. 1. [id number] ADMISSION PERFORMANCE: Supervision or touching assistance CODE: 04 12 STEPS: Not attempted due to medical condition or safety concerns CODE: 88 PICKING UP OBJECT: Not attempted due to medical condition or safety concerns CODE: 88 DOES THE PATIENT USE A WHEELCHAIR/SCOOTER? Q1. DOES THE PATIENT USE A WHEELCHAIR/SCOOTER?: Yes CODE: 1 WHEEL 50 FEET WITH TWO TURNS: WHEEL 50 FEET WITH TWO TURNS - STEP 1: Does the patient complete the activity by him/herself with no assistance (physical, verbal/nonverbal cueing, setup/clean-up)? No. WHEEL 50 FEET WITH TWO TURNS - STEP 2: Does the patient need only setup/clean-up assistance from one helper? No. WHEEL 50 FEET WITH TWO TURNS - STEP 3: Does the patient need only verbal/nonverbal cueing or touching/steadying/contact guard assistance fro m one helper? Yes. 1. [id number] ADMISSION PERFORMANCE: Supervision or touching assistance CODE: 04 INDICATE THE TYPE OF WHEELCHAIR/SCOOTER USED: RR1. INDICATE THE TYPE OF WHEELCHAIR/SCOOTER USED.: Manual CODE: 1 WHEEL 150 FEET: WHEEL 150 FEET - STEP 1: Does the patient complete the activity by him/herself with no assistance (physical, verbal/nonverbal cueing, setup/clean-up)? No. WHEEL 150 FEET - STEP 2: Does the patient need only setup/clean-up assistance from one helper? No. WHEEL 150 FEET - STEP 3: Does the patient need only verbal/nonverbal cueing or touching/steadying/contact guard assistance fro m one helper? Yes. 1. [id number] ADMISSION PERFORMANCE: Supervision or touching assistance CODE: 04 INDICATE THE TYPE OF WHEELCHAIR/SCOOTER USED: SS1. INDICATE THE TYPE OF WHEELCHAIR/SCOOTER USED.: Manual CODE: 1 BLADDER AND BOWEL: CODE: EXPR CODE: EXPR SIGNATURE PANEL: The following modified sections: 1. [id number] Admission Performance, 1. [id number] Admission Performance, 1. [id number] Admission Performance, 1. [id number] Admission Performance, 1. [id number] Admission Performance, 1. PD2534N Admission Performance, 1. [id number] Admission Performance, 1. [id number] Admission Performance , 1. [id number] Admission Performance, 1. [id number] Admission Performance, 1. [id number] Admission Performanc e, Q1. Does the patient use a wheelchair/scooter?, 1. [id number] Admission Performance, RR1. Indicate th e type of wheelchair/scooter used., 1. [id number] Admission Performance, Code, SS1. Indicate the type of wheelchair/scooter used. were [electronically] signed by Patrice Farley PTA on TueJan 11 2019 14:53:27 GMT-0600 (Central Standard Time)
--- NOTE | 2019-01-11 15:08 | RAD REPORT ---
EXAM DESCRIPTION: RAD - Barium Swallow Modified - 01/11/2019 2:36 pm COMPARISON: None. TECHNIQUE: The patient was given liquid, semi-solid and solid forms of barium. Lateral view fluorosc opic imaging was performed in conjunction with speech pathology service. FINDINGS: Cineloop acquisitions: 18 Fluoro time: 3 minutes 13 seconds Laryngeal penetration: Not cleared with thin and honey (tsp), likely to be aspirated by way of gravit y. Pharyngeal residue: Vallecular and pyriform: mild with honey, cleared on subsequent swallow. 1 sec swallow delay. IMPRESSION: Modified barium swallow as summarized above and fully detailed on the speech pathology r eport
--- NOTE | 2019-01-11 15:39 | FAST ---
ENCOUNTER DATE AND TIME: 01/11/2019 08:00 (ANIMAL BEHAVIOURIST) NAME GRACIE GRIJALVA DATE OF : 1950 DATE OF ADMISSION: 12/23/2018 14:36 (ANIMAL BEHAVIOURIST) PHONE: AGE: 68 N# [id number] GENDER: Female ENCOUNTER PHYSICIAN: Dr. Jesse Martinez M.D. 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 EATING: Not assessed/no information CODE: - ORAL HYGIENE: ORAL HYGIENE - STEP 1: Does the patient complete the activity by him/herself with no assistance (physical, verbal/nonverbal cueing, setup/clean-up)? Yes. 1. [id number] ADMISSION PERFORMANCE: Independent CODE: 06 TOILETING HYGIENE: TOILETING HYGIENE - STEP 1: Does the patient complete the activity by him/herself with no assistance (physical, verbal/nonverbal cueing, setup/clean-up)? No. TOILETING HYGIENE - STEP 2: Does the patient need only setup/clean-up assistance from one helper? No. TOILETING HYGIENE - STEP 3: Does the patient need only verbal/nonverbal cueing or touching/steadying/contact guard assistance fro m one helper? No. TOILETING HYGIENE - STEP 4: Does the patient need physical assistance - for example lifting or trunk support from one helper - wi th the helper providing less than half of the effort? Yes. 1. [id number] ADMISSION PERFORMANCE: Partial/moderate assistance CODE: 03 BATHING: Not assessed/no information CODE: - DRESSING - UPPER BODY: Not assessed/no information CODE: - DRESSING - LOWER BODY: DRESSING - LOWER BODY - STEP 1: Does the patient complete the activity by him/herself with no assistance (physical, verbal/nonverbal cueing, setup/clean-up)? No. DRESSING - LOWER BODY - STEP 2: Does the patient need only setup/clean-up assistance from one helper? No. DRESSING - LOWER BODY - STEP 3: Does the patient need only verbal/nonverbal cueing or touching/steadying/contact guard assistance fro m one helper? No. DRESSING - LOWER BODY - STEP 4: Does the patient need physical assistance - for example lifting or trunk support from one helper - wi th the helper providing less than half of the effort? Yes. 1. [id number] ADMISSION PERFORMANCE: Partial/moderate assistance CODE: 03 PUTTING ON/TAKING OFF FOOTWEAR: Not assessed/no information CODE: - DOES THE PATIENT USE A WHEELCHAIR/SCOOTER? CODE: EXPR INDICATE THE TYPE OF WHEELCHAIR/SCOOTER USED: CODE: EXPR INDICATE THE TYPE OF WHEELCHAIR/SCOOTER USED: CODE: EXPR BLADDER AND BOWEL: CODE: EXPR CODE: EXPR SIGNATURE PANEL: The following modified sections: 1. [id number] Admission Performance, 1. [id number] Admission Performance, 1. [id number] Admission Performance were [electronically] signed by DONOVAN De Jesus on Tue 15:39:09 T-0600 (Central Standard Time)
--- NOTE | 2019-01-11 19:12 | R.PN ---
ENCOUNTER DATE AND TIME: 01/11/2019 19:07 (RENTAL CLERK) NAME GRACIE VALADEZ DATE OF : 1950 DATE OF ADMISSION: 12/23/2018 14:36 (RENTAL CLERK) Acute to subacute infarct Right Lentiform Nucleus and Adjacent CaudateCHIEF COMPLAINT: Dysarthria, dysphagia, left hemiparesis, incoordination. SUBJECTIVE: Pt denied any Shortness of Breath. Pt denied any depression. Labs reviewed and are stable. She is making fair overall progress with physical, occupational. She fa iled a repeat barium swallow study except pureed diet. She has very poor labial, lingual and guttural sounds. Poor progress made recovering speech sounds. She also has difficulty communicating in Bag Borrow or Stealitin g. She requires verbal-tactile cues for accurate positioning and timing for proper strategy. She tolerat ed single sips of nectar thickened liquids. Propelled wheelchair 250' with standby assistance. She will likely require a PEG tube due to severe dysphagia. Ambulated 250' with standby assistance using a rolling walker. Up and down 10 steps with bilateral woodall ndrails. WBC 8.2, Hgb 11.2, prealbumin 17.0. He is taking hemocyte plus and promod. VITAL SIGNS Temperature: 97.8 F SBP/DBP: 125/82 Pulse: 55 Resp: 16 MEDICATION ALLERGIES: No Known Drug Allergies (NKDA) ENVIRONMENTAL ALLERGIES: None Known - Substance Allergies None Known - Other Allergies None Known NURSING: - Shower allowing shower - Bladder care per protocol - Skin care per protocol PRECAUTIONS: - Weight Bearing Precaution WBAT left LE ACTIVITIES OOB only with supervision THERAPIES: - Occupational Therapy Cognitive Retraining. Visual Perceptual Training. - Dietary and Nutrition Adequate Nutrition. Nutritional Education. Nutritional Supplements. - Speech Therapy Cognitive Training. Dysphagia Therapy. Expressive Language Skills. Memory Strategies. Receptive Langu age Skills. Speech Intelligibility Training. PHYSICAL EXAM - Gen Alert and awake Lying in bed No apparent distress Oriented to: person, time, and place - Skin No skin breakdown. Normacephalic - Eyes No abnormalities - ENMT No abnormalities - Neck No abnormalities - CVS RRR - Chest Clear - Resp No wheezing - Abd + bowel sounds - GI Non distended Deferred - No abnormalities - Ext No significant edema - MSK 3+/5 weakness in left upper and 4+/5 in left lower extremity - Neuro 3+/5 weakness in left upper and 4+/5 in left lower extremity - Psych No abnormalities ASSESSMENT: Pt. is a 68 yo Right-handed black female.On 12/19/2018 Pt. presented to [facility] with sudden on set of left-side weakness.On 12/19/2018 she was admitted to [facility] with diagnosis Acute to julian bacute infarct Right Lentiform Nucleus and Adjacent Caudate.Her impairment category is Stroke 01 - L eft Body (Right Brain) (01.1).Pre-morbidly, Pt. was independent/mod-I in Locomotion, Safety Awareness , Balance, Social Cognition, Transfers Control, Sphincter Control, Self-Care, and Endurance; and she had good Balance, Endurance, Locomotion, Transfers Control, Communication, and Social Cognition.Curre ntly, she has deficits of Locomotion, Safety Awareness, Balance, Transfers Control, Self-Care, and Co mmunication.Pt. is now [facility] to [facility] for acute in-patient rehabilitat ion in order to maximize patient's functional independence in activities of daily living, strength, R OM, and mobility.- Rehab Goal Patient has realistic goal of being discharged at assistance level 6-Erica to reside at Home with Fam elis/Relatives. MDM/PLAN: - Physical Therapy Gait dysfunction - to improve, our physical therapists will perform initial evaluation of pt's statu s upon admission and devise an individualized program for Gait Training, and Wheel Chair mobility Inability to transfer - to improve, our physical therapists will perform initial evaluation of pt's status upon admission and devise an individualized program for Bed mobility Need for home safety evaluation - to improve, our physical therapists will perform initial evaluatio n of pt's status upon admission and devise an individualized program for Home Evaluation Need in caregiver upon discharge - to improve, our physical therapists will perform initial evaluati on of pt's status upon admission and devise an individualized program for Caregiver Training Edema - to improve, our physical therapists will perform initial evaluation of pt's status upon admi ssion and devise an individualized program for Elevation Training, and Lymphedema Therapy New precaution - to improve, our physical therapists will perform initial evaluation of pt's status upon admission and devise an individualized program for Patient precaution education Poor balance - to improve, our physical therapists will perform initial evaluation of pt's status up on admission and devise an individualized program for Balance Training Weakness - to improve, our physical therapists will perform initial evaluation of pt's status upon a dmission and devise an individualized program for Aquatic Therapy, Neuromuscular Reeducation, and Str engthening Achieving independence - to improve, our physical therapists will perform initial evaluation of pt's status upon admission and devise an individualized program for Community Reintegration Activities - Occupational Therapy ADL deficits - to improve, our occupation therapists will perform initial evaluation of pt's status upon admission and devise an individualized program for Bathing, Bed mobility, Community Reintegratio n, Cooking, Dressing, Eating, Fine Motor Skills, Grooming, Homemaking, Kitchen Mobility, Laundry, Pat ient Education, Safety Awareness, Splinting - Positioning, Transfers(Toilet, Tub, Shower), and Wheel Chair Management Need for physician locums urgent care - to improve, our occupation therapists will perform initial evaluation of pt's status upon admission and devise an individualized program for Caregiver Training Weakness - to improve, our occupation therapists will perform initial evaluation of pt's status upon admission and devise an individualized program for Aquatic Therapy, Balance, Endurance, UE ROM, and UE strengthening - Other See attached MAR (Medication Administration Record) [email or web address].pdf See attached MAR (Medication Administration Record) - Diet Type Continue Regular - Diet - Liquid Texture Continue Thin - Tube Feed Continue N/A - Bladder care per protocol - Weight Bearing Precaution WBAT left LE - Skin care per protocol - Diet - Solid Texture Continue Regular Continue Pureed - Shower allowing shower for Dementia, TBI, Stroke, or others FUNCTIONAL STATUS: UPDATED AT WEEKLY TEAM CONFERENCE - Bladder Same accident frequency: 7-Ind - No accidents in the past 7 days - Bowel Same accident frequency: 7-Ind - No accidents in the past 7 days - Walking Same score based on distance walked: 1(<=50ft) - Wheelchair Same score based on distance traveled: 0(N/A) FUNCTIONAL STATUS: - Self-Care A. Eating modA B. Grooming sup C. Bathing Kiersten D. Dressing - Upper Kiersten E. Dressing - Lower Kiersten F. Toileting modA - Sphincter Control G. Bladder control sup H. Bowel control sup - Transfers Control I. Bed/Chair/Wheelchair modA J. Toilet modA K. Tub/Shower modA - Locomotion L. Walk/Wheelchair (W) modA M. Stairs maxA - Communication N. Comprehension (B) sup O. Expression (B) modA - Social Cognition P. Social Interaction sup Q. Problem Solving sup R. Memory Ind - Endurance Good - Balance Good - Safety Awareness Good QI SCORES: - Self-Care A. Eating 03-Partial/moderate assistance B. Oral hygiene 03-Partial/moderate assistance C. Toileting hygiene 03-Partial/moderate assistance E. Shower/bathe self 03-Partial/moderate assistance F. Upper body dressing 03-Partial/moderate assistance G. Lower body dressing 03-Partial/moderate assistance H. Putting on/taking off footwear 02-Substantial/maximal assistance - Mobility A. Roll left and right 03-Partial/moderate assistance B. Sit to lying 03-Partial/moderate assistance C. Lying to sitting on side of bed 03-Partial/moderate assistance D. Sit to stand 04-Supervision or touching assistance E. Chair/doq-tq-[id number] transfer 04-Supervision or touching assistance F. Toilet transfer 03-Partial/moderate assistance G. Car transfer 88-Not attempted due to medical condition or safety concerns I. Walk 10 feet 04-Supervision or touching assistance J. Walk 50 feet with two turns 88-Not attempted due to medical condition or safety concerns K. Walk 150 feet 88-Not attempted due to medical condition or safety concerns L. Walking 10 feet on uneven surfaces 88-Not attempted due to medical condition or safety concerns M. 1 step (curb) 88-Not attempted due to medical condition or safety concerns N. 4 steps 88-Not attempted due to medical condition or safety concerns O. 12 steps 88-Not attempted due to medical condition or safety concerns P. Picking up object 88-Not attempted due to medical condition or safety concerns R. Wheel 50 feet with two turns 88-Not attempted due to medical condition or safety concerns S. Wheel 150 feet 88-Not attempted due to medical condition or safety concerns - Bladder and Bowel Bladder continence 0-Always continent Bowel continence 0-Always continent - Endurance Fair - Balance Fair - Safety Awareness Fair CURRENT FUNC. DEFICITS: Self-Care, Mobility, Endurance, Balance, and Safety Awareness SIGNATURE PANEL: (RENTAL CLERK)
[2019-01-11] MEDS: DOCUSATE NA/SENNA CONC 1 TAB PO SCH (20:36)
[2019-01-11] MEDS: ATORVASTATIN 80 MG TAB PO SCH (20:36)
[2019-01-11] MEDS: TOPIRAMATE 25 MG TAB PO SCH (20:38)
[2019-01-12] MEDS: METOPROLOL TAR 25 MG TAB PO SCH (05:04)
[2019-01-12] MEDS: INSULIN -REGULAR HUMAN 50 UNIT/0.5 ML ML SQ SCH ×4 (06:50→21:00)
[2019-01-12] MEDS: DIPYRIDAMOLE/ASPIRIN CAP ER PO SCH ×2 (07:33→21:14)
[2019-01-12] MEDS: NAPROXEN 250 MG TAB PO PRN (07:33)
[2019-01-12] MEDS: LOSARTAN POTASSIUM 50 MG TABLET PO SCH (07:33)
[2019-01-12] MEDS: PROMOD 30 ML DOSE PO SCH ×2 (07:34→20:00)
[2019-01-12] MEDS: POTASSIUM 25 MEQ EFFERV TAB PO SCH ×2 (07:34→21:13)
[2019-01-12] MEDS: ENSURE PUDDING 4 OZ CUP PO SCH ×2 (07:34→13:52)
--- NOTE | 2019-01-12 09:39 | P.RH.PN ---
Estimated Length of Stay: 24 Expected Discharge Date: 01/14/19 Discharge Disposition Plan: Home Family Support: Yes Assisted Goal: Mobility, Transfers, Self Care Vital Signs: Last Vital Signs Temp 97.0 F 01/12/19 04:54 Pulse 75 01/12/19 05:04 Resp 19 01/12/19 04:54 BP 134/75 01/12/19 05:04 Pulse Ox 96 01/12/19 04:54 Laboratory: Laboratory Last Values WBC 8.2 K/uL (4.3-10.9) 01/11/19 05:55 RBC 4.02 M/uL (3.86-4.86) 01/11/19 05:55 Hgb 11.2 g/dL (12.0-15.0) L 01/11/19 05:55 Hct 33.2 % (36.0-45.0) L 01/11/19 05:55 MCV 82.5 fL (80-100) 01/11/19 05:55 MCH 27.9 pg (27.0-35.0) 01/11/19 05:55 MCHC 33.8 g/dL (32.0-36.0) 01/11/19 05:55 RDW 15.5 % (12.1-15.2) H 01/11/19 05:55 Plt Count 232 K/uL (152-406) 01/11/19 05:55 MPV 9.7 fL (7.6-11.3) 01/11/19 05:55 Neutrophils % 72.9 % (41.7-73.7) 01/11/19 05:55 Lymphocytes % 16.4 % (15.3-44.8) 01/11/19 05:55 Monocytes % 5.4 % (3.3-12.3) 01/11/19 05:55 Eosinophils % 4.7 % (0-4.4) H 01/11/19 05:55 Basophils % 0.6 % (0-1.3) 01/11/19 05:55 Absolute Neutrophils 6.0 K/uL (1.8-8.0) 01/11/19 05:55 Absolute Lymphocytes 1.3 K/uL (0.7-4.9) 01/11/19 05:55 Absolute Monocytes 0.4 K/uL (0.1-1.3) 01/11/19 05:55 Absolute Eosinophils 0.4 K/uL (0-0.5) 01/11/19 05:55 Absolute Basophils 0.1 K/uL (0-0.5) 01/11/19 05:55 Sodium 148 mmol/L (136-145) H 01/11/19 05:51 Potassium 3.6 mmol/L (3.5-5.1) 01/11/19 05:51 Chloride 119 mmol/L (98-107) H 01/11/19 05:51 Carbon Dioxide 25 mmol/L (21-32) 01/11/19 05:51 BUN 14 mg/dL (7-18) 01/11/19 05:51 Creatinine 1.06 mg/dL (0.55-1.3) 01/11/19 05:51 Estimated GFR 63 mL/min (=/>90) L 01/11/19 05:51 Glucose 95 mg/dL (74-106) 01/11/19 05:51 POC Glucose 91 mg/dl (65-120) 01/12/19 06:41 Calcium 8.6 mg/dL (8.5-10.1) 01/11/19 05:51 Magnesium 2.4 mg/dL (1.8-2.4) 01/11/19 05:51 Albumin 3.1 g/dL (3.4-5.0) L 01/11/19 05:51 Prealbumin 17.0 mg/dL (20-40) L 01/11/19 05:51 Urine Color Yellow 12/23/18 15:20 Urine Appearance Clear 12/23/18 15:20 Urine pH 5.5 (5.0-7.0) 12/23/18 15:20 Ur Specific Hart 1.025 (1.005-1.030) 12/23/18 15:20 Urine Ketones Negative (NEG) 12/23/18 15:20 Urine Blood 2+ (NEG) H 12/23/18 15:20 Urine Nitrite Negative (NEG) 12/23/18 15:20 Urine Bilirubin Negative (NEG) 12/23/18 15:20 Urine Urobilinogen 0.2 mg/dL (0.2-1.0) 12/23/18 15:20 Ur Leukocyte Esterase Negative (NEG) 12/23/18 15:20 Urine RBC <5 /HPF (NONE SEEN) 12/23/18 15:20 Urine WBC <5 /HPF (<5) 12/23/18 15:20 Ur Squamous Epith Cells <5 /HPF (NONE SEEN) 12/23/18 15:20 Calcium Oxalate Crystal Many (NONE SEEN) H 12/23/18 15:20 Urine Bacteria <20 /HPF (<20) 12/23/18 15:20 Urine Culture Reflexed Not needed 12/23/18 15:20 Urine Glucose Negative (NEG) 12/23/18 15:20 Urine Total Protein Trace (NEG) 12/23/18 15:20 Weight: 210 lb 4.8 oz Wound Present: No Closed Surgical Incision Present: Yes Negative Pressure Wound Therapy Present: No Physician Update: Labs reviewed and are stable. Slight improvement in swallowing but still needs IV fluids due to poor intake of liquids and poor protection of airway. She requires maximum assistance for many ADL. She has poor safety awareness. She is very impulsive. Will discuss PEG tube placement for next week. Medical Issues: Patient is incontinent daily with bladder and always continent with bowel. Functional Improvement: Patient has met all short-term goals at this time and continues to progress toward long-term goals. Patient's gait distance continues to improve. Speech Therapy Update: Patient cont. to present with severe-marked dysarthria, and severe oropharyngeal dysphagia. Patient had her third Modified Barium Swallow Study this afternoon which revealed the following: "severe oral, mod- severe pharyngeal dysphagia characterized by oral defensiveness, anterior loss, prolonged oral phase, delayed A-P transit, premature spillage over BOT, flash penetration, deep penetration (not cleared likely to be aspirated) and mild residues on the BOT, valleculae, and the pyriform sinuses." Diet Recommendations are to cont. pureed solids and nectar-thickened liquids with meds crushed indefinitely. Patient is non-verbal and utilizes a combination of exaggerated facial expressions, gestures, and poor writing to communicate basic wants/needs. STAP application pending for an iPAD with [employer] to serve as a more efficient and high tech form of AAC. Patient is impulsive and requires close supervision for safety. ST does not anticipate significant improvement at this time. Patient appears to have reached highest practical level. Summary: Patient's care plan and intermediate goals have been reviewed and revised as necessary. Please see the Rehabilitation Signature page for all necessary signatures.
--- NOTE | 2019-01-12 13:35 | FAST ---
ENCOUNTER DATE AND TIME: 01/12/2019 08:00 (COTTON GINNER HELPER) NAME GRACIE GRIJALVA DATE OF : 1950 DATE OF ADMISSION: 12/23/2018 14:36 (COTTON GINNER HELPER) PHONE: AGE: 68 N# [id number] GENDER: Female ENCOUNTER PHYSICIAN: Dr. Jesse Martinez M.D. 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 EATING: Not assessed/no information CODE: - ORAL HYGIENE: Not assessed/no information CODE: - TOILETING HYGIENE: TOILETING HYGIENE - STEP 1: Does the patient complete the activity by him/herself with no assistance (physical, verbal/nonverbal cueing, setup/clean-up)? No. TOILETING HYGIENE - STEP 2: Does the patient need only setup/clean-up assistance from one helper? No. TOILETING HYGIENE - STEP 3: Does the patient need only verbal/nonverbal cueing or touching/steadying/contact guard assistance fro m one helper? No. TOILETING HYGIENE - STEP 4: Does the patient need physical assistance - for example lifting or trunk support from one helper - wi th the helper providing less than half of the effort? Yes. 1. [id number] ADMISSION PERFORMANCE: Partial/moderate assistance CODE: 03 BATHING: SHOWER/BATHE SELF - STEP 1: Does the patient complete the activity by him/herself with no assistance (physical, verbal/nonverbal cueing, setup/clean-up)? No. SHOWER/BATHE SELF - STEP 2: Does the patient need only setup/clean-up assistance from one helper? No. SHOWER/BATHE SELF - STEP 3: Does the patient need only verbal/nonverbal cueing or touching/steadying/contact guard assistance fro m one helper? No. SHOWER/BATHE SELF - STEP 4: Does the patient need physical assistance - for example lifting or trunk support from one helper - wi th the helper providing less than half of the effort? Yes. 1. [id number] ADMISSION PERFORMANCE: Partial/moderate assistance CODE: 03 DRESSING - UPPER BODY: DRESSING - UPPER BODY - STEP 1: Does the patient complete the activity by him/herself with no assistance (physical, verbal/nonverbal cueing, setup/clean-up)? No. DRESSING - UPPER BODY - STEP 2: Does the patient need only setup/clean-up assistance from one helper? No. DRESSING - UPPER BODY - STEP 3: Does the patient need only verbal/nonverbal cueing or touching/steadying/contact guard assistance fro m one helper? Yes. 1. ADMISSION PERFORMANCE: Supervision or touching assistance CODE: 04 DRESSING - LOWER BODY: DRESSING - LOWER BODY - STEP 1: Does the patient complete the activity by him/herself with no assistance (physical, verbal/nonverbal cueing, setup/clean-up)? No. DRESSING - LOWER BODY - STEP 2: Does the patient need only setup/clean-up assistance from one helper? No. DRESSING - LOWER BODY - STEP 3: Does the patient need only verbal/nonverbal cueing or touching/steadying/contact guard assistance fro m one helper? No. DRESSING - LOWER BODY - STEP 4: Does the patient need physical assistance - for example lifting or trunk support from one helper - wi th the helper providing less than half of the effort? Yes. 1. ADMISSION PERFORMANCE: Partial/moderate assistance CODE: 03 PUTTING ON/TAKING OFF FOOTWEAR: FOOTWEAR - STEP 1: Does the patient complete the activity by him/herself with no assistance (physical, verbal/nonverbal cueing, setup/clean-up)? No. FOOTWEAR - STEP 2: Does the patient need only setup/clean-up assistance from one helper? No. FOOTWEAR - STEP 3: Does the patient need only verbal/nonverbal cueing or touching/steadying/contact guard assistance fro m one helper? No. FOOTWEAR - STEP 4: Does the patient need physical assistance - for example lifting or trunk support from one helper - wi th the helper providing less than half of the effort? Yes. 1. ADMISSION PERFORMANCE: Partial/moderate assistance CODE: 03 DOES THE PATIENT USE A WHEELCHAIR/SCOOTER? CODE: EXPR INDICATE THE TYPE OF WHEELCHAIR/SCOOTER USED: CODE: EXPR INDICATE THE TYPE OF WHEELCHAIR/SCOOTER USED: CODE: EXPR BLADDER AND BOWEL: CODE: EXPR CODE: EXPR SIGNATURE PANEL: The following modified sections: 1. [id number] Admission Performance, 1. [id number] Admission Performance, 1. [id number] Admission Performance, 1. [id number] Admission Performance, 1. [id number] Admission Performance were [electronically] signed by Sade Bundy OT on TueJan 12 2019 13:34:36 GMT-0600 ([facility] tral Standard Time)
[2019-01-12] MEDS: ATORVASTATIN 80 MG TAB PO SCH (21:14)
[2019-01-12] MEDS: DOCUSATE NA/SENNA CONC 1 TAB PO SCH (21:15)
[2019-01-12] MEDS: TOPIRAMATE 25 MG TAB PO SCH (21:16)
--- NOTE | 2019-01-13 02:40 | FAST ---
SHIFT START DATE/TIME: 01/12/2019 19:00 (NATURAL GAS FIELD PROCESSING SUPERVISOR) SHIFT END DATE/TIME: 01/13/2019 07:00 (NATURAL GAS FIELD PROCESSING SUPERVISOR) NAME GRACIE GRIJALVA DATE OF : 1950 DATE OF ADMISSION: 12/23/2018 14:36 (NATURAL GAS FIELD PROCESSING SUPERVISOR) PHONE: AGE: 68 N# [id number] GENDER: Female ENCOUNTER PHYSICIAN: Dr. Jesse Martinez M.D. 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 EATING: Not assessed/no information CODE: - ORAL HYGIENE: ORAL HYGIENE - STEP 1: Does the patient complete the activity by him/herself with no assistance (physical, verbal/nonverbal cueing, setup/clean-up)? No. ORAL HYGIENE - STEP 2: Does the patient need only setup/clean-up assistance from one helper? Yes. 1. [id number] ADMISSION PERFORMANCE: Setup or clean-up assistance CODE: 05 TOILETING HYGIENE: TOILETING HYGIENE - STEP 1: Does the patient complete the activity by him/herself with no assistance (physical, verbal/nonverbal cueing, setup/clean-up)? No. TOILETING HYGIENE - STEP 2: Does the patient need only setup/clean-up assistance from one helper? No. TOILETING HYGIENE - STEP 3: Does the patient need only verbal/nonverbal cueing or touching/steadying/contact guard assistance fro m one helper? Yes. 1. [id number] ADMISSION PERFORMANCE: Supervision or touching assistance CODE: 04 BATHING: Not assessed/no information CODE: - DRESSING - UPPER BODY: Not assessed/no information CODE: - DRESSING - LOWER BODY: Not assessed/no information CODE: - PUTTING ON/TAKING OFF FOOTWEAR: Not assessed/no information CODE: - TRANSFERS: CAR: Not assessed/no information CODE: - WALK 10 FEET: Not assessed/no information CODE: - 1 STEP (CURB): Not assessed/no information CODE: - PICKING UP OBJECT: Not assessed/no information CODE: - DOES THE PATIENT USE A WHEELCHAIR/SCOOTER? CODE: EXPR WHEEL 50 FEET WITH TWO TURNS: Not assessed/no information CODE: - INDICATE THE TYPE OF WHEELCHAIR/SCOOTER USED: CODE: EXPR WHEEL 150 FEET: Not assessed/no information CODE: - INDICATE THE TYPE OF WHEELCHAIR/SCOOTER USED: CODE: EXPR BLADDER AND BOWEL: H350. BLADDER CONTINENCE (3-DAY ASSESSMENT PERIOD): Incontinent less than daily (e.g., once or twice during the 3-day assessment period) CODE: 2 H400. BOWEL CONTINENCE (3-DAY ASSESSMENT PERIOD): Always continent CODE: 0
[2019-01-13] MEDS: METOPROLOL TAR 25 MG TAB PO SCH (05:10)
[2019-01-13 05:39] VITALS: BMI 36.9
[2019-01-13] MEDS: INSULIN -REGULAR HUMAN 50 UNIT/0.5 ML ML SQ SCH ×4 (07:30→20:18)
[2019-01-13] MEDS: PROMOD 30 ML DOSE PO SCH ×2 (08:00→20:00)
[2019-01-13] MEDS: LOSARTAN POTASSIUM 50 MG TABLET PO SCH (08:00)
[2019-01-13] MEDS: POTASSIUM 25 MEQ EFFERV TAB PO SCH ×2 (08:00→20:20)
[2019-01-13] MEDS: NAPROXEN 250 MG TAB PO PRN (08:04)
[2019-01-13] MEDS: DIPYRIDAMOLE/ASPIRIN CAP ER PO SCH ×2 (08:05→20:21)
[2019-01-13] MEDS: ENSURE PUDDING 4 OZ CUP PO SCH ×2 (08:06→13:46)
--- NOTE | 2019-01-13 15:25 | FAST ---
SHIFT START DATE/TIME: 01/13/2019 07:00 (BUSHEL GIRL) SHIFT END DATE/TIME: 01/13/2019 19:00 (BUSHEL GIRL) NAME GRACIE GRIJALVA DATE OF : 1950 DATE OF ADMISSION: 12/23/2018 14:36 (BUSHEL GIRL) PHONE: AGE: 68 N# [id number] GENDER: Female ENCOUNTER PHYSICIAN: Dr. Jesse Martinez M.D. 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 EATING: EATING - STEP 1: Does the patient complete the activity by him/herself with no assistance (physical, verbal/nonverbal cueing, setup/clean-up)? No. EATING - STEP 2: Does the patient need only setup/clean-up assistance from one helper? Yes. 1. [id number] ADMISSION PERFORMANCE: Setup or clean-up assistance CODE: 05 ORAL HYGIENE: ORAL HYGIENE - STEP 1: Does the patient complete the activity by him/herself with no assistance (physical, verbal/nonverbal cueing, setup/clean-up)? No. ORAL HYGIENE - STEP 2: Does the patient need only setup/clean-up assistance from one helper? Yes. 1. [id number] ADMISSION PERFORMANCE: Setup or clean-up assistance CODE: 05 TOILETING HYGIENE: TOILETING HYGIENE - STEP 1: Does the patient complete the activity by him/herself with no assistance (physical, verbal/nonverbal cueing, setup/clean-up)? No. TOILETING HYGIENE - STEP 2: Does the patient need only setup/clean-up assistance from one helper? No. TOILETING HYGIENE - STEP 3: Does the patient need only verbal/nonverbal cueing or touching/steadying/contact guard assistance fro m one helper? Yes. 1. [id number] ADMISSION PERFORMANCE: Supervision or touching assistance CODE: 04 BATHING: Not assessed/no information CODE: - DRESSING - UPPER BODY: DRESSING - UPPER BODY - STEP 1: Does the patient complete the activity by him/herself with no assistance (physical, verbal/nonverbal cueing, setup/clean-up)? No. DRESSING - UPPER BODY - STEP 2: Does the patient need only setup/clean-up assistance from one helper? No. DRESSING - UPPER BODY - STEP 3: Does the patient need only verbal/nonverbal cueing or touching/steadying/contact guard assistance fro m one helper? Yes. 1. [id number] ADMISSION PERFORMANCE: Supervision or touching assistance CODE: 04 DRESSING - LOWER BODY: DRESSING - LOWER BODY - STEP 1: Does the patient complete the activity by him/herself with no assistance (physical, verbal/nonverbal cueing, setup/clean-up)? No. DRESSING - LOWER BODY - STEP 2: Does the patient need only setup/clean-up assistance from one helper? No. DRESSING - LOWER BODY - STEP 3: Does the patient need only verbal/nonverbal cueing or touching/steadying/contact guard assistance fro m one helper? No. DRESSING - LOWER BODY - STEP 4: Does the patient need physical assistance - for example lifting or trunk support from one helper - wi th the helper providing less than half of the effort? Yes. 1. [id number] ADMISSION PERFORMANCE: Partial/moderate assistance CODE: 03 PUTTING ON/TAKING OFF FOOTWEAR: FOOTWEAR - STEP 1: Does the patient complete the activity by him/herself with no assistance (physical, verbal/nonverbal cueing, setup/clean-up)? No. FOOTWEAR - STEP 2: Does the patient need only setup/clean-up assistance from one helper? No. FOOTWEAR - STEP 3: Does the patient need only verbal/nonverbal cueing or touching/steadying/contact guard assistance fro m one helper? No. FOOTWEAR - STEP 4: Does the patient need physical assistance - for example lifting or trunk support from one helper - wi th the helper providing less than half of the effort? Yes. 1. [id number] ADMISSION PERFORMANCE: Partial/moderate assistance CODE: 03 ROLL LEFT AND RIGHT: ROLL LEFT AND RIGHT - STEP 1: Does the patient complete the activity by him/herself with no assistance (physical, verbal/nonverbal cueing, setup/clean-up)? No. ROLL LEFT AND RIGHT - STEP 2: Does the patient need only setup/clean-up assistance from one helper? No. ROLL LEFT AND RIGHT - STEP 3: Does the patient need only verbal/nonverbal cueing or touching/steadying/contact guard assistance fro m one helper? Yes. 1. [id number] ADMISSION PERFORMANCE: Supervision or touching assistance CODE: 04 SIT TO LYING: SIT TO LYING - STEP 1: Does the patient complete the activity by him/herself with no assistance (physical, verbal/nonverbal cueing, setup/clean-up)? No. SIT TO LYING - STEP 2: Does the patient need only setup/clean-up assistance from one helper? No. SIT TO LYING - STEP 3: Does the patient need only verbal/nonverbal cueing or touching/steadying/contact guard assistance fro m one helper? Yes. 1. [id number] ADMISSION PERFORMANCE: Supervision or touching assistance CODE: 04 LYING TO SITTING: LYING TO SITTING ON SIDE OF BED - STEP 1: Does the patient complete the activity by him/herself with no assistance (physical, verbal/nonverbal cueing, setup/clean-up)? No. LYING TO SITTING ON SIDE OF BED - STEP 2: Does the patient need only setup/clean-up assistance from one helper? No. LYING TO SITTING ON SIDE OF BED - STEP 3: Does the patient need only verbal/nonverbal cueing or touching/steadying/contact guard assistance fro m one helper? Yes. 1. [id number] ADMISSION PERFORMANCE: Supervision or touching assistance CODE: 04 SIT TO STAND: SIT TO STAND - STEP 1: Does the patient complete the activity by him/herself with no assistance (physical, verbal/nonverbal cueing, setup/clean-up)? No. SIT TO STAND - STEP 2: Does the patient need only setup/clean-up assistance from one helper? No. SIT TO STAND - STEP 3: Does the patient need only verbal/nonverbal cueing or touching/steadying/contact guard assistance fro m one helper? Yes. 1. [id number] ADMISSION PERFORMANCE: Supervision or touching assistance CODE: 04 TRANSFERS: BED, CHAIR: CHAIR/[id number] TRANSFER - STEP 1: Does the patient complete the activity by him/herself with no assistance (physical, verbal/nonverbal cueing, setup/clean-up)? No. CHAIR/[id number] TRANSFER - STEP 2: Does the patient need only setup/clean-up assistance from one helper? No. CHAIR/[id number] TRANSFER - STEP 3: Does the patient need only verbal/nonverbal cueing or touching/steadying/contact guard assistance fro m one helper? Yes. 1. [id number] ADMISSION PERFORMANCE: Supervision or touching assistance CODE: 04 TRANSFER TOILET: TOILET TRANSFER - STEP 1: Does the patient complete the activity by him/herself with no assistance (physical, verbal/nonverbal cueing, setup/clean-up)? No. TOILET TRANSFER - STEP 2: Does the patient need only setup/clean-up assistance from one helper? No. TOILET TRANSFER - STEP 3: Does the patient need only verbal/nonverbal cueing or touching/steadying/contact guard assistance fro m one helper? Yes. 1. [id number] ADMISSION PERFORMANCE: Supervision or touching assistance CODE: 04 TRANSFERS: CAR: Not assessed/no information CODE: - WALK 10 FEET: Not assessed/no information CODE: - 1 STEP (CURB): Not assessed/no information CODE: - PICKING UP OBJECT: Not assessed/no information CODE: - DOES THE PATIENT USE A WHEELCHAIR/SCOOTER? Q1. DOES THE PATIENT USE A WHEELCHAIR/SCOOTER?: Yes CODE: 1 WHEEL 50 FEET WITH TWO TURNS: Not assessed/no information WHEEL 50 FEET WITH TWO TURNS - STEP 1: Does the patient complete the activity by him/herself with no assistance (physical, verbal/nonverbal cueing, setup/clean-up)? No. WHEEL 50 FEET WITH TWO TURNS - STEP 2: Does the patient need only setup/clean-up assistance from one helper? No. WHEEL 50 FEET WITH TWO TURNS - STEP 3: Does the patient need only verbal/nonverbal cueing or touching/steadying/contact guard assistance fro m one helper? Yes. 1. [id number] ADMISSION PERFORMANCE: Supervision or touching assistance CODE: 04 INDICATE THE TYPE OF WHEELCHAIR/SCOOTER USED: RR1. INDICATE THE TYPE OF WHEELCHAIR/SCOOTER USED.: Motorized CODE: 2 WHEEL 150 FEET: WHEEL 150 FEET - STEP 1: Does the patient complete the activity by him/herself with no assistance (physical, verbal/nonverbal cueing, setup/clean-up)? No. WHEEL 150 FEET - STEP 2: Does the patient need only setup/clean-up assistance from one helper? No. WHEEL 150 FEET - STEP 3: Does the patient need only verbal/nonverbal cueing or touching/steadying/contact guard assistance fro m one helper? Yes. 1. [id number] ADMISSION PERFORMANCE: Supervision or touching assistance CODE: 04 INDICATE THE TYPE OF WHEELCHAIR/SCOOTER USED: SS1. INDICATE THE TYPE OF WHEELCHAIR/SCOOTER USED.: Manual CODE: 1 BLADDER AND BOWEL: H350. BLADDER CONTINENCE (3-DAY ASSESSMENT PERIOD): Always continent (no documented incontinence) CODE: 0 H400. BOWEL CONTINENCE (3-DAY ASSESSMENT PERIOD): Always continent CODE: 0 SIGNATURE PANEL: The following modified sections: 1. [id number] Admission Performance, 1. [id number] Admission Performance, 1. BG6790E Admission Performance, 1. CE4872V Admission Performance, 1. SZ5855b Admission Performance, 1. GW2800f Admission Performance, 1. IE7854v Admission Performance, 1. [id number] Admission Performance , 1. DC0215M Admission Performance, 1. [id number] Admission Performance, 1. [id number] Admission Performanc e, 1. [id number] Admission Performance, 1. [id number] Admission Performance, 1. GT0768Z Admission Performan ce, 1. HW8109D Admission Performance, RR1. Indicate the type of wheelchair/scooter used., 1. [id number] Admission Performance, 1. [id number] Admission Performance, Q1. Does the patient use a wheelchair/scoote r?, 1. VR3243E Admission Performance, 1. [id number] Admission Performance, Code, SS1. Indicate the type of wheelchair/scooter used., H350. Bladder Continence (3-day assessment period), H400. Bowel Continen ce (3-day assessment period) were [electronically] signed by Susie Ugarte C.N.A. on TueJan 13 2019 15:24:42 GMT-0600 (Central Standard Time)
[2019-01-13] MEDS: TOPIRAMATE 25 MG TAB PO SCH (20:20)
[2019-01-13] MEDS: ATORVASTATIN 80 MG TAB PO SCH (20:20)
[2019-01-13] MEDS: DOCUSATE NA/SENNA CONC 1 TAB PO SCH (20:20)
[2019-01-13] MEDS: CYCLOBENZAPRINE 10 MG TAB PO PRN (21:55)
[2019-01-14] MEDS: METOPROLOL TAR 25 MG TAB PO SCH (05:18)
[2019-01-14] MEDS: INSULIN -REGULAR HUMAN 50 UNIT/0.5 ML ML SQ SCH ×4 (07:12→21:00)
[2019-01-14] MEDS: POTASSIUM 25 MEQ EFFERV TAB PO SCH ×2 (07:53→21:07)
[2019-01-14] MEDS: DIPYRIDAMOLE/ASPIRIN CAP ER PO SCH ×2 (07:54→21:07)
[2019-01-14] MEDS: LOSARTAN POTASSIUM 50 MG TABLET PO SCH (07:55)
[2019-01-14] MEDS: NAPROXEN 250 MG TAB PO PRN (07:55)
[2019-01-14] MEDS: ENSURE PUDDING 4 OZ CUP PO SCH ×2 (07:56→13:48)
[2019-01-14] MEDS: PROMOD 30 ML DOSE PO SCH ×2 (07:56→21:09)
[2019-01-14] MEDS: ATORVASTATIN 80 MG TAB PO SCH (21:07)
[2019-01-14] MEDS: DOCUSATE NA/SENNA CONC 1 TAB PO SCH (21:07)
[2019-01-14] MEDS: TOPIRAMATE 25 MG TAB PO SCH (21:08)
[2019-01-14] MEDS: CYCLOBENZAPRINE 10 MG TAB PO PRN (21:08)
[2019-01-15] MEDS: METOPROLOL TAR 25 MG TAB PO SCH (05:11)
[2019-01-15] MEDS: INSULIN -REGULAR HUMAN 50 UNIT/0.5 ML ML SQ SCH ×4 (07:30→20:34)
[2019-01-15] MEDS: POTASSIUM 25 MEQ EFFERV TAB PO SCH ×2 (08:07→20:32)
[2019-01-15] MEDS: LOSARTAN POTASSIUM 50 MG TABLET PO SCH (08:07)
[2019-01-15] MEDS: PROMOD 30 ML DOSE PO SCH ×2 (08:07→20:00)
[2019-01-15] MEDS: DIPYRIDAMOLE/ASPIRIN CAP ER PO SCH ×2 (08:07→20:32)
[2019-01-15] MEDS: ENSURE PUDDING 4 OZ CUP PO SCH ×2 (08:08→14:00)
--- NOTE | 2019-01-15 10:19 | FAST ---
SHIFT START DATE/TIME: 01/14/2019 07:00 (ELEMENTARY SCHOOL COUNSELOR) SHIFT END DATE/TIME: 01/14/2019 19:00 (ELEMENTARY SCHOOL COUNSELOR) NAME GRACIE GRIJALVA DATE OF : 1950 DATE OF ADMISSION: 12/23/2018 14:36 (ELEMENTARY SCHOOL COUNSELOR) PHONE: AGE: 68 N# [id number] GENDER: Female ENCOUNTER PHYSICIAN: Dr. Jesse Martinez M.D. 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 EATING: EATING - STEP 1: Does the patient complete the activity by him/herself with no assistance (physical, verbal/nonverbal cueing, setup/clean-up)? No. EATING - STEP 2: Does the patient need only setup/clean-up assistance from one helper? No. EATING - STEP 3: Does the patient need only verbal/nonverbal cueing or touching/steadying/contact guard assistance fro m one helper? Yes. 1. [id number] ADMISSION PERFORMANCE: Supervision or touching assistance CODE: 04 ORAL HYGIENE: ORAL HYGIENE - STEP 1: Does the patient complete the activity by him/herself with no assistance (physical, verbal/nonverbal cueing, setup/clean-up)? No. ORAL HYGIENE - STEP 2: Does the patient need only setup/clean-up assistance from one helper? No. ORAL HYGIENE - STEP 3: Does the patient need only verbal/nonverbal cueing or touching/steadying/contact guard assistance fro m one helper? Yes. 1. [id number] ADMISSION PERFORMANCE: Supervision or touching assistance CODE: 04 TOILETING HYGIENE: TOILETING HYGIENE - STEP 1: Does the patient complete the activity by him/herself with no assistance (physical, verbal/nonverbal cueing, setup/clean-up)? No. TOILETING HYGIENE - STEP 2: Does the patient need only setup/clean-up assistance from one helper? No. TOILETING HYGIENE - STEP 3: Does the patient need only verbal/nonverbal cueing or touching/steadying/contact guard assistance fro m one helper? No. TOILETING HYGIENE - STEP 4: Does the patient need physical assistance - for example lifting or trunk support from one helper - wi th the helper providing less than half of the effort? Yes. 1. [id number] ADMISSION PERFORMANCE: Partial/moderate assistance CODE: 03 BATHING: Not assessed/no information CODE: - DRESSING - UPPER BODY: Not assessed/no information CODE: - DRESSING - LOWER BODY: Not assessed/no information CODE: - PUTTING ON/TAKING OFF FOOTWEAR: Not assessed/no information CODE: - ROLL LEFT AND RIGHT: Not assessed/no information CODE: - SIT TO LYING: Not assessed/no information CODE: - LYING TO SITTING: Not assessed/no information CODE: - TRANSFERS: BED, CHAIR: Not assessed/no information CODE: - TRANSFER TOILET: Not assessed/no information CODE: - TRANSFERS: CAR: Not assessed/no information CODE: - WALK 10 FEET: Not assessed/no information CODE: - 1 STEP (CURB): Not assessed/no information CODE: - PICKING UP OBJECT: Not assessed/no information CODE: - DOES THE PATIENT USE A WHEELCHAIR/SCOOTER? CODE: EXPR WHEEL 50 FEET WITH TWO TURNS: Not assessed/no information CODE: - INDICATE THE TYPE OF WHEELCHAIR/SCOOTER USED: CODE: EXPR WHEEL 150 FEET: Not assessed/no information CODE: - INDICATE THE TYPE OF WHEELCHAIR/SCOOTER USED: CODE: EXPR BLADDER AND BOWEL: H350. BLADDER CONTINENCE (3-DAY ASSESSMENT PERIOD): Stress incontinence only CODE: 1 H400. BOWEL CONTINENCE (3-DAY ASSESSMENT PERIOD): Occasionally incontinent (one episode of bowel incontinence) CODE: 1 SIGNATURE PANEL: The following modified sections: 1. [id number] Admission Performance, 1. [id number] Admission Performance, 1. [id number] Admission Performance, Code, H350. Bladder Continence (3-day assessment period), H400. [place] el Continence (3-day assessment period) were [electronically] signed by Praful Gaston on TueJan 15 2019 10:18:13 GMT-0600 (Central Standard Time)
--- NOTE | 2019-01-15 10:23 | FAST ---
SHIFT START DATE/TIME: 01/15/2019 07:00 (JAVA SYSTEMS ANALYST) SHIFT END DATE/TIME: 01/15/2019 19:00 (JAVA SYSTEMS ANALYST) NAME GRACIE GRIJALVA DATE OF : 1950 DATE OF ADMISSION: 12/23/2018 14:36 (JAVA SYSTEMS ANALYST) PHONE: AGE: 68 N# [id number] GENDER: Female ENCOUNTER PHYSICIAN: Dr. Jesse Martinez M.D. 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 EATING: EATING - STEP 1: Does the patient complete the activity by him/herself with no assistance (physical, verbal/nonverbal cueing, setup/clean-up)? No. EATING - STEP 2: Does the patient need only setup/clean-up assistance from one helper? No. EATING - STEP 3: Does the patient need only verbal/nonverbal cueing or touching/steadying/contact guard assistance fro m one helper? Yes. 1. [id number] ADMISSION PERFORMANCE: Supervision or touching assistance CODE: 04 ORAL HYGIENE: ORAL HYGIENE - STEP 1: Does the patient complete the activity by him/herself with no assistance (physical, verbal/nonverbal cueing, setup/clean-up)? No. ORAL HYGIENE - STEP 2: Does the patient need only setup/clean-up assistance from one helper? No. ORAL HYGIENE - STEP 3: Does the patient need only verbal/nonverbal cueing or touching/steadying/contact guard assistance fro m one helper? Yes. 1. [id number] ADMISSION PERFORMANCE: Supervision or touching assistance CODE: 04 TOILETING HYGIENE: TOILETING HYGIENE - STEP 1: Does the patient complete the activity by him/herself with no assistance (physical, verbal/nonverbal cueing, setup/clean-up)? No. TOILETING HYGIENE - STEP 2: Does the patient need only setup/clean-up assistance from one helper? No. TOILETING HYGIENE - STEP 3: Does the patient need only verbal/nonverbal cueing or touching/steadying/contact guard assistance fro m one helper? Yes. 1. [id number] ADMISSION PERFORMANCE: Supervision or touching assistance CODE: 04 BATHING: Not assessed/no information CODE: - DRESSING - UPPER BODY: Not assessed/no information CODE: - DRESSING - LOWER BODY: Not assessed/no information CODE: - PUTTING ON/TAKING OFF FOOTWEAR: Not assessed/no information CODE: - ROLL LEFT AND RIGHT: Not assessed/no information CODE: - SIT TO LYING: SIT TO LYING - STEP 1: Does the patient complete the activity by him/herself with no assistance (physical, verbal/nonverbal cueing, setup/clean-up)? No. SIT TO LYING - STEP 2: Does the patient need only setup/clean-up assistance from one helper? No. SIT TO LYING - STEP 3: Does the patient need only verbal/nonverbal cueing or touching/steadying/contact guard assistance fro m one helper? Yes. 1. [id number] ADMISSION PERFORMANCE: Supervision or touching assistance CODE: 04 LYING TO SITTING: LYING TO SITTING ON SIDE OF BED - STEP 1: Does the patient complete the activity by him/herself with no assistance (physical, verbal/nonverbal cueing, setup/clean-up)? No. LYING TO SITTING ON SIDE OF BED - STEP 2: Does the patient need only setup/clean-up assistance from one helper? No. LYING TO SITTING ON SIDE OF BED - STEP 3: Does the patient need only verbal/nonverbal cueing or touching/steadying/contact guard assistance fro m one helper? Yes. 1. [id number] ADMISSION PERFORMANCE: Supervision or touching assistance CODE: 04 SIT TO STAND: SIT TO STAND - STEP 1: Does the patient complete the activity by him/herself with no assistance (physical, verbal/nonverbal cueing, setup/clean-up)? No. SIT TO STAND - STEP 2: Does the patient need only setup/clean-up assistance from one helper? No. SIT TO STAND - STEP 3: Does the patient need only verbal/nonverbal cueing or touching/steadying/contact guard assistance fro m one helper? Yes. 1. [id number] ADMISSION PERFORMANCE: Supervision or touching assistance CODE: 04 TRANSFERS: BED, CHAIR: Not assessed/no information CODE: - TRANSFER TOILET: TOILET TRANSFER - STEP 1: Does the patient complete the activity by him/herself with no assistance (physical, verbal/nonverbal cueing, setup/clean-up)? No. TOILET TRANSFER - STEP 2: Does the patient need only setup/clean-up assistance from one helper? No. TOILET TRANSFER - STEP 3: Does the patient need only verbal/nonverbal cueing or touching/steadying/contact guard assistance fro m one helper? Yes. 1. [id number] ADMISSION PERFORMANCE: Supervision or touching assistance CODE: 04 TRANSFERS: CAR: Not assessed/no information CODE: - WALK 10 FEET: Not assessed/no information CODE: - 1 STEP (CURB): Not assessed/no information CODE: - PICKING UP OBJECT: Not assessed/no information CODE: - DOES THE PATIENT USE A WHEELCHAIR/SCOOTER? CODE: EXPR WHEEL 50 FEET WITH TWO TURNS: Not assessed/no information CODE: - INDICATE THE TYPE OF WHEELCHAIR/SCOOTER USED: CODE: EXPR WHEEL 150 FEET: Not assessed/no information CODE: - INDICATE THE TYPE OF WHEELCHAIR/SCOOTER USED: CODE: EXPR BLADDER AND BOWEL: H350. BLADDER CONTINENCE (3-DAY ASSESSMENT PERIOD): Stress incontinence only CODE: 1 H400. BOWEL CONTINENCE (3-DAY ASSESSMENT PERIOD): Occasionally incontinent (one episode of bowel incontinence) CODE: 1 SIGNATURE PANEL: The following modified sections: 1. [id number] Admission Performance, 1. [id number] Admission Performance, 1. [id number] Admission Performance, 1. [id number] Admission Performance, 1. [id number] Admission Performance, 1. [id number] Admission Performance, 1. [id number] Admission Performance, 1. [id number] Admission Performance , Code, H350. Bladder Continence (3-day assessment period), H400. Bowel Continence (3-day assessment period) were [electronically] signed by Praful Gaston on TueJan 15 2019 10:22:28 GMT-0600 ([facility])
--- NOTE | 2019-01-15 15:33 | FAST ---
ENCOUNTER DATE AND TIME: 01/15/2019 08:00 (ROR ENGINEER) NAME GRACIE GRIJALVA DATE OF : 1950 DATE OF ADMISSION: 12/23/2018 14:36 (ROR ENGINEER) PHONE: AGE: 68 N# [id number] GENDER: Female ENCOUNTER PHYSICIAN: Dr. Jesse Martinez M.D. 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 EATING: Not assessed/no information CODE: - ORAL HYGIENE: Not assessed/no information CODE: - TOILETING HYGIENE: TOILETING HYGIENE - STEP 1: Does the patient complete the activity by him/herself with no assistance (physical, verbal/nonverbal cueing, setup/clean-up)? No. TOILETING HYGIENE - STEP 2: Does the patient need only setup/clean-up assistance from one helper? No. TOILETING HYGIENE - STEP 3: Does the patient need only verbal/nonverbal cueing or touching/steadying/contact guard assistance fro m one helper? No. TOILETING HYGIENE - STEP 4: Does the patient need physical assistance - for example lifting or trunk support from one helper - wi th the helper providing less than half of the effort? Yes. 1. [id number] ADMISSION PERFORMANCE: Partial/moderate assistance CODE: 03 BATHING: SHOWER/BATHE SELF - STEP 1: Does the patient complete the activity by him/herself with no assistance (physical, verbal/nonverbal cueing, setup/clean-up)? No. SHOWER/BATHE SELF - STEP 2: Does the patient need only setup/clean-up assistance from one helper? No. SHOWER/BATHE SELF - STEP 3: Does the patient need only verbal/nonverbal cueing or touching/steadying/contact guard assistance fro m one helper? Yes. 1. [id number] ADMISSION PERFORMANCE: Supervision or touching assistance CODE: 04 DRESSING - UPPER BODY: DRESSING - UPPER BODY - STEP 1: Does the patient complete the activity by him/herself with no assistance (physical, verbal/nonverbal cueing, setup/clean-up)? No. DRESSING - UPPER BODY - STEP 2: Does the patient need only setup/clean-up assistance from one helper? No. DRESSING - UPPER BODY - STEP 3: Does the patient need only verbal/nonverbal cueing or touching/steadying/contact guard assistance fro m one helper? Yes. 1. [id number] ADMISSION PERFORMANCE: Supervision or touching assistance CODE: 04 DRESSING - LOWER BODY: DRESSING - LOWER BODY - STEP 1: Does the patient complete the activity by him/herself with no assistance (physical, verbal/nonverbal cueing, setup/clean-up)? No. DRESSING - LOWER BODY - STEP 2: Does the patient need only setup/clean-up assistance from one helper? No. DRESSING - LOWER BODY - STEP 3: Does the patient need only verbal/nonverbal cueing or touching/steadying/contact guard assistance fro m one helper? No. DRESSING - LOWER BODY - STEP 4: Does the patient need physical assistance - for example lifting or trunk support from one helper - wi th the helper providing less than half of the effort? Yes. 1. [id number] ADMISSION PERFORMANCE: Partial/moderate assistance CODE: 03 PUTTING ON/TAKING OFF FOOTWEAR: FOOTWEAR - STEP 1: Does the patient complete the activity by him/herself with no assistance (physical, verbal/nonverbal cueing, setup/clean-up)? No. FOOTWEAR - STEP 2: Does the patient need only setup/clean-up assistance from one helper? No. FOOTWEAR - STEP 3: Does the patient need only verbal/nonverbal cueing or touching/steadying/contact guard assistance fro m one helper? No. FOOTWEAR - STEP 4: Does the patient need physical assistance - for example lifting or trunk support from one helper - wi th the helper providing less than half of the effort? Yes. 1. [id number] ADMISSION PERFORMANCE: Partial/moderate assistance CODE: 03 DOES THE PATIENT USE A WHEELCHAIR/SCOOTER? CODE: EXPR INDICATE THE TYPE OF WHEELCHAIR/SCOOTER USED: CODE: EXPR INDICATE THE TYPE OF WHEELCHAIR/SCOOTER USED: CODE: EXPR BLADDER AND BOWEL: CODE: EXPR CODE: EXPR SIGNATURE PANEL: The following modified sections: 1. [id number] Admission Performance, 1. [id number] Admission Performance, 1. [id number] Admission Performance, 1. HI6160l Admission Performance, 1. [id number] Admission Performance, 1. [id number] Admission Performance were [electronically] signed by Sade Bundy OT on TueJan 15 2019 15:32:41 GMT-0600 (Central Standard Time)
[2019-01-15] MEDS: TOPIRAMATE 25 MG TAB PO SCH (20:32)
[2019-01-15] MEDS: CYCLOBENZAPRINE 10 MG TAB PO PRN (20:32)
[2019-01-15] MEDS: ATORVASTATIN 80 MG TAB PO SCH (20:32)
[2019-01-15] MEDS: DOCUSATE NA/SENNA CONC 1 TAB PO SCH (20:33)
[2019-01-15] MEDS: NAPROXEN 250 MG TAB PO PRN (20:33)
[2019-01-16] MEDS: METOPROLOL TAR 25 MG TAB PO SCH (05:05)
[2019-01-16] MEDS: INSULIN -REGULAR HUMAN 50 UNIT/0.5 ML ML SQ SCH ×4 (07:20→21:00)
[2019-01-16] MEDS: PROMOD 30 ML DOSE PO SCH ×2 (08:00→18:57)
[2019-01-16] MEDS: LOSARTAN POTASSIUM 50 MG TABLET PO SCH (08:04)
[2019-01-16] MEDS: DIPYRIDAMOLE/ASPIRIN CAP ER PO SCH ×2 (08:04→18:56)
[2019-01-16] MEDS: POTASSIUM 25 MEQ EFFERV TAB PO SCH ×2 (08:04→18:56)
[2019-01-16] MEDS: ENSURE PUDDING 4 OZ CUP PO SCH ×2 (08:08→14:00)
--- NOTE | 2019-01-16 10:18 | FAST ---
SHIFT START DATE/TIME: 01/16/2019 07:00 (GROUNDMAN/LINEMAN) SHIFT END DATE/TIME: 01/16/2019 19:00 (GROUNDMAN/LINEMAN) NAME GRACIE GRIJALVA DATE OF : 1950 DATE OF ADMISSION: 12/23/2018 14:36 (GROUNDMAN/LINEMAN) PHONE: AGE: 68 N# [id number] GENDER: Female ENCOUNTER PHYSICIAN: Dr. Jesse Martinez M.D. 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 EATING: EATING - STEP 1: Does the patient complete the activity by him/herself with no assistance (physical, verbal/nonverbal cueing, setup/clean-up)? No. EATING - STEP 2: Does the patient need only setup/clean-up assistance from one helper? No. EATING - STEP 3: Does the patient need only verbal/nonverbal cueing or touching/steadying/contact guard assistance fro m one helper? Yes. 1. [id number] ADMISSION PERFORMANCE: Supervision or touching assistance CODE: 04 ORAL HYGIENE: ORAL HYGIENE - STEP 1: Does the patient complete the activity by him/herself with no assistance (physical, verbal/nonverbal cueing, setup/clean-up)? No. ORAL HYGIENE - STEP 2: Does the patient need only setup/clean-up assistance from one helper? No. ORAL HYGIENE - STEP 3: Does the patient need only verbal/nonverbal cueing or touching/steadying/contact guard assistance fro m one helper? Yes. 1. [id number] ADMISSION PERFORMANCE: Supervision or touching assistance CODE: 04 TOILETING HYGIENE: TOILETING HYGIENE - STEP 1: Does the patient complete the activity by him/herself with no assistance (physical, verbal/nonverbal cueing, setup/clean-up)? No. TOILETING HYGIENE - STEP 2: Does the patient need only setup/clean-up assistance from one helper? No. TOILETING HYGIENE - STEP 3: Does the patient need only verbal/nonverbal cueing or touching/steadying/contact guard assistance fro m one helper? Yes. 1. [id number] ADMISSION PERFORMANCE: Supervision or touching assistance CODE: 04 BATHING: Not assessed/no information CODE: - DRESSING - UPPER BODY: Not assessed/no information CODE: - DRESSING - LOWER BODY: Not assessed/no information CODE: - PUTTING ON/TAKING OFF FOOTWEAR: Not assessed/no information CODE: - ROLL LEFT AND RIGHT: ROLL LEFT AND RIGHT - STEP 1: Does the patient complete the activity by him/herself with no assistance (physical, verbal/nonverbal cueing, setup/clean-up)? No. ROLL LEFT AND RIGHT - STEP 2: Does the patient need only setup/clean-up assistance from one helper? No. ROLL LEFT AND RIGHT - STEP 3: Does the patient need only verbal/nonverbal cueing or touching/steadying/contact guard assistance fro m one helper? No. ROLL LEFT AND RIGHT - STEP 4: Does the patient need physical assistance - for example lifting or trunk support from one helper - wi th the helper providing less than half of the effort? Yes. 1. [id number] ADMISSION PERFORMANCE: Partial/moderate assistance CODE: 03 SIT TO LYING: Not assessed/no information CODE: - LYING TO SITTING: LYING TO SITTING ON SIDE OF BED - STEP 1: Does the patient complete the activity by him/herself with no assistance (physical, verbal/nonverbal cueing, setup/clean-up)? No. LYING TO SITTING ON SIDE OF BED - STEP 2: Does the patient need only setup/clean-up assistance from one helper? No. LYING TO SITTING ON SIDE OF BED - STEP 3: Does the patient need only verbal/nonverbal cueing or touching/steadying/contact guard assistance fro m one helper? Yes. 1. [id number] ADMISSION PERFORMANCE: Supervision or touching assistance CODE: 04 SIT TO STAND: SIT TO STAND - STEP 1: Does the patient complete the activity by him/herself with no assistance (physical, verbal/nonverbal cueing, setup/clean-up)? No. SIT TO STAND - STEP 2: Does the patient need only setup/clean-up assistance from one helper? No. SIT TO STAND - STEP 3: Does the patient need only verbal/nonverbal cueing or touching/steadying/contact guard assistance fro m one helper? No. SIT TO STAND - STEP 4: Does the patient need physical assistance - for example lifting or trunk support from one helper - wi th the helper providing less than half of the effort? Yes. 1. [id number] ADMISSION PERFORMANCE: Partial/moderate assistance CODE: 03 TRANSFERS: BED, CHAIR: CHAIR/[id number] TRANSFER - STEP 1: Does the patient complete the activity by him/herself with no assistance (physical, verbal/nonverbal cueing, setup/clean-up)? No. CHAIR/[id number] TRANSFER - STEP 2: Does the patient need only setup/clean-up assistance from one helper? No. CHAIR/[id number] TRANSFER - STEP 3: Does the patient need only verbal/nonverbal cueing or touching/steadying/contact guard assistance fro m one helper? No. CHAIR/[id number] TRANSFER - STEP 4: Does the patient need physical assistance - for example lifting or trunk support from one helper - wi th the helper providing less than half of the effort? Yes. 1. [id number] ADMISSION PERFORMANCE: Partial/moderate assistance CODE: 03 TRANSFER TOILET: TOILET TRANSFER - STEP 1: Does the patient complete the activity by him/herself with no assistance (physical, verbal/nonverbal cueing, setup/clean-up)? No. TOILET TRANSFER - STEP 2: Does the patient need only setup/clean-up assistance from one helper? No. TOILET TRANSFER - STEP 3: Does the patient need only verbal/nonverbal cueing or touching/steadying/contact guard assistance fro m one helper? No. TOILET TRANSFER - STEP 4: Does the patient need physical assistance - for example lifting or trunk support from one helper - wi th the helper providing less than half of the effort? Yes. 1. [id number] ADMISSION PERFORMANCE: Partial/moderate assistance CODE: 03 TRANSFERS: CAR: Not assessed/no information CODE: - WALK 10 FEET: Not assessed/no information CODE: - 1 STEP (CURB): Not assessed/no information CODE: - PICKING UP OBJECT: Not assessed/no information CODE: - DOES THE PATIENT USE A WHEELCHAIR/SCOOTER? CODE: EXPR WHEEL 50 FEET WITH TWO TURNS: Not assessed/no information CODE: - INDICATE THE TYPE OF WHEELCHAIR/SCOOTER USED: CODE: EXPR WHEEL 150 FEET: Not assessed/no information CODE: - INDICATE THE TYPE OF WHEELCHAIR/SCOOTER USED: CODE: EXPR BLADDER AND BOWEL: H350. BLADDER CONTINENCE (3-DAY ASSESSMENT PERIOD): Stress incontinence only CODE: 1 H400. BOWEL CONTINENCE (3-DAY ASSESSMENT PERIOD): Occasionally incontinent (one episode of bowel incontinence) CODE: 1 SIGNATURE PANEL: The following modified sections: 1. [id number] Admission Performance, 1. [id number] Admission Performance, 1. GP4629C Admission Performance, 1. [id number] Admission Performance, 1. YH3231W Admission Performance, 1. [id number] Admission Performance, 1. [id number] Admission Performance, 1. [id number] Admission Performance , 1. YX3246B Admission Performance, 1. [id number] Admission Performance, 1. AS3879I Admission Performanc e, Code, H350. Bladder Continence (3-day assessment period), H400. Bowel Continence (3-day assessment period) were [electronically] signed by Praful Gaston on TueJan 16 2019 10:17:31 GMT-0600 ([place])
[2019-01-16] MEDS: TOPIRAMATE 25 MG TAB PO SCH (18:56)
[2019-01-16] MEDS: CYCLOBENZAPRINE 10 MG TAB PO PRN (18:56)
[2019-01-16] MEDS: DOCUSATE NA/SENNA CONC 1 TAB PO SCH (18:57)
[2019-01-16] MEDS: NAPROXEN 250 MG TAB PO PRN (18:57)
[2019-01-16] MEDS: ATORVASTATIN 80 MG TAB PO SCH (18:57)
[2019-01-17] MEDS: METOPROLOL TAR 25 MG TAB PO SCH (05:00)
[2019-01-17 06:57] VITALS: BP 158/81; TEMP 97.8
[2019-01-17] MEDS: INSULIN -REGULAR HUMAN 50 UNIT/0.5 ML ML SQ SCH ×3 (07:30→16:30)
[2019-01-17] MEDS: PROMOD 30 ML DOSE PO SCH (08:00)
[2019-01-17] MEDS: POTASSIUM 25 MEQ EFFERV TAB PO SCH (08:58)
[2019-01-17] MEDS: LOSARTAN POTASSIUM 50 MG TABLET PO SCH (08:58)
[2019-01-17] MEDS: DIPYRIDAMOLE/ASPIRIN CAP ER PO SCH (08:59)
[2019-01-17] MEDS: ENSURE PUDDING 4 OZ CUP PO SCH ×2 (08:59→14:00)
[2019-01-17] MEDS: NAPROXEN 250 MG TAB PO PRN (11:55)
--- NOTE | 2019-01-17 15:24 | FAST ---
ENCOUNTER DATE AND TIME: 01/17/2019 08:00 (PHYSICIAN NON INVASIVE CARDIOLOGIST) NAME GRACIE GRIJALVA DATE OF : 1950 DATE OF ADMISSION: 12/23/2018 14:36 (PHYSICIAN NON INVASIVE CARDIOLOGIST) PHONE: AGE: 68 N# [id number] GENDER: Female ENCOUNTER PHYSICIAN: Dr. Jesse Martinez M.D. 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 EATING: Not assessed/no information CODE: - ORAL HYGIENE: ORAL HYGIENE - STEP 1: Does the patient complete the activity by him/herself with no assistance (physical, verbal/nonverbal cueing, setup/clean-up)? No. ORAL HYGIENE - STEP 2: Does the patient need only setup/clean-up assistance from one helper? Yes. 1. [id number] ADMISSION PERFORMANCE: Setup or clean-up assistance CODE: 05 TOILETING HYGIENE: Not assessed/no information CODE: - BATHING: SHOWER/BATHE SELF - STEP 1: Does the patient complete the activity by him/herself with no assistance (physical, verbal/nonverbal cueing, setup/clean-up)? No. SHOWER/BATHE SELF - STEP 2: Does the patient need only setup/clean-up assistance from one helper? No. SHOWER/BATHE SELF - STEP 3: Does the patient need only verbal/nonverbal cueing or touching/steadying/contact guard assistance fro m one helper? Yes. 1. [id number] ADMISSION PERFORMANCE: Supervision or touching assistance CODE: 04 DRESSING - UPPER BODY: DRESSING - UPPER BODY - STEP 1: Does the patient complete the activity by him/herself with no assistance (physical, verbal/nonverbal cueing, setup/clean-up)? No. DRESSING - UPPER BODY - STEP 2: Does the patient need only setup/clean-up assistance from one helper? No. DRESSING - UPPER BODY - STEP 3: Does the patient need only verbal/nonverbal cueing or touching/steadying/contact guard assistance fro m one helper? Yes. 1. [id number] ADMISSION PERFORMANCE: Supervision or touching assistance CODE: 04 DRESSING - LOWER BODY: DRESSING - LOWER BODY - STEP 1: Does the patient complete the activity by him/herself with no assistance (physical, verbal/nonverbal cueing, setup/clean-up)? No. DRESSING - LOWER BODY - STEP 2: Does the patient need only setup/clean-up assistance from one helper? No. DRESSING - LOWER BODY - STEP 3: Does the patient need only verbal/nonverbal cueing or touching/steadying/contact guard assistance fro m one helper? No. DRESSING - LOWER BODY - STEP 4: Does the patient need physical assistance - for example lifting or trunk support from one helper - wi th the helper providing less than half of the effort? Yes. 1. [id number] ADMISSION PERFORMANCE: Partial/moderate assistance CODE: 03 PUTTING ON/TAKING OFF FOOTWEAR: FOOTWEAR - STEP 1: Does the patient complete the activity by him/herself with no assistance (physical, verbal/nonverbal cueing, setup/clean-up)? No. FOOTWEAR - STEP 2: Does the patient need only setup/clean-up assistance from one helper? No. FOOTWEAR - STEP 3: Does the patient need only verbal/nonverbal cueing or touching/steadying/contact guard assistance fro m one helper? No. FOOTWEAR - STEP 4: Does the patient need physical assistance - for example lifting or trunk support from one helper - wi th the helper providing less than half of the effort? Yes. 1. [id number] ADMISSION PERFORMANCE: Partial/moderate assistance CODE: 03 DOES THE PATIENT USE A WHEELCHAIR/SCOOTER? CODE: EXPR INDICATE THE TYPE OF WHEELCHAIR/SCOOTER USED: CODE: EXPR INDICATE THE TYPE OF WHEELCHAIR/SCOOTER USED: CODE: EXPR BLADDER AND BOWEL: CODE: EXPR CODE: EXPR SIGNATURE PANEL: The following modified sections: 1. [id number] Admission Performance, 1. [id number] Admission Performance, 1. [id number] Admission Performance, 1. [id number] Admission Performance, 1. [id number] Admission Performance were [electronically] signed by DONOVAN De Jesus on TueJan 17 2019 15:23:44 GMT-0600 (Central Standard Time)
--- NOTE | 2019-01-17 17:35 | R.PN ---
ENCOUNTER DATE AND TIME: 01/17/2019 17:27 (INDUSTRIAL ROOFER HELPER) NAME GRACIE VALADEZ DATE OF : 1950 DATE OF ADMISSION: 12/23/2018 14:36 (INDUSTRIAL ROOFER HELPER) Acute to subacute infarct Right Lentiform Nucleus and Adjacent CaudateCHIEF COMPLAINT: Dysarthria, dysphagia, left hemiparesis, incoordination. SUBJECTIVE: Pt denied any Shortness of Breath. Pt denied any depression. Labs reviewed and are stable. She is making fair overall progress with physical, occupational. She fa iled a repeat barium swallow study except pureed diet. She has very poor labial, lingual and guttural sounds. Poor progress made recovering speech sounds. She also has difficulty communicating in writin g. She requires verbal-tactile cues for accurate positioning and timing for proper strategy. She tolerat ed single sips of nectar thickened liquids. Propelled wheelchair 250' with standby assistance. She may require a PEG tube due to severe dysphagia. Ambulated 410' with standby assistance using a rolling walker. Up and down 5 steps with bilateral byrnes drails and moderate assistance. Glucose 94 to 134, WBC 8.2, Hgb 11.2, prealbumin 17.0. She is taking hemocyte plus and promod. She will be discharged today to SNF. Ambulated 100, 45 and 25 feet with rolling walker and contact guard assistance. Self-propelled 260 fe et x 2 with modified independence. VITAL SIGNS Temperature: 97.8 F SBP/DBP: 158/81 Pulse: 59 Resp: 16 MEDICATION ALLERGIES: No Known Drug Allergies (NKDA) ENVIRONMENTAL ALLERGIES: None Known - Substance Allergies None Known - Other Allergies None Known NURSING: - Shower allowing shower - Bladder care per protocol - Skin care per protocol PRECAUTIONS: - Weight Bearing Precaution WBAT left LE ACTIVITIES OOB only with supervision THERAPIES: - Occupational Therapy Cognitive Retraining. Visual Perceptual Training. - Dietary and Nutrition Adequate Nutrition. Nutritional Education. Nutritional Supplements. - Speech Therapy Cognitive Training. Dysphagia Therapy. Expressive Language Skills. Memory Strategies. Receptive Langu age Skills. Speech Intelligibility Training. PHYSICAL EXAM - Gen Alert and awake Lying in bed No apparent distress Oriented to: person, time, and place - Skin No skin breakdown. Normacephalic - Eyes No abnormalities - ENMT No abnormalities - Neck No abnormalities - CVS RRR - Chest Clear - Resp No wheezing - Abd + bowel sounds - GI Non distended Deferred - No abnormalities - Ext No significant edema - MSK 3+/5 weakness in left upper and 4+/5 in left lower extremity - Neuro 3+/5 weakness in left upper and 4+/5 in left lower extremity - Psych No abnormalities ASSESSMENT: Pt. is a 68 yo Right-handed black female.On 12/19/2018 Pt. presented to [facility] with sudden on set of left-side weakness.On 12/19/2018 she was admitted to [facility] with diagnosis Acute to julian bacute infarct Right Lentiform Nucleus and Adjacent Caudate.Her impairment category is Stroke 01 - L eft Body (Right Brain) (01.1).Pre-morbidly, Pt. was independent/mod-I in Locomotion, Safety Awareness , Balance, Social Cognition, Transfers Control, Sphincter Control, Self-Care, and Endurance; and she had good Balance, Endurance, Locomotion, Transfers Control, Communication, and Social Cognition.Curre ntly, she has deficits of Locomotion, Safety Awareness, Balance, Transfers Control, Self-Care, and Co mmunication.Pt. is now referred to [facility] for acute in-patient rehabilitat ion in order to maximize patient's functional independence in activities of daily living, strength, R OM, and mobility.- Rehab Goal Patient has realistic goal of being discharged at assistance level 6-Erica to reside at Home with Fam elis/Relatives. MDM/PLAN: - Physical Therapy Gait dysfunction - to improve, our physical therapists will perform initial evaluation of pt's statu s upon admission and devise an individualized program for Gait Training, and Wheel Chair mobility Inability to transfer - to improve, our physical therapists will perform initial evaluation of pt's status upon admission and devise an individualized program for Bed mobility Need for home safety evaluation - to improve, our physical therapists will perform initial evaluatio n of pt's status upon admission and devise an individualized program for Home Evaluation Need in caregiver upon discharge - to improve, our physical therapists will perform initial evaluati on of pt's status upon admission and devise an individualized program for Caregiver Training Edema - to improve, our physical therapists will perform initial evaluation of pt's status upon admi ssion and devise an individualized program for Elevation Training, and Lymphedema Therapy New precaution - to improve, our physical therapists will perform initial evaluation of pt's status upon admission and devise an individualized program for Patient precaution education Poor balance - to improve, our physical therapists will perform initial evaluation of pt's status up on admission and devise an individualized program for Balance Training Weakness - to improve, our physical therapists will perform initial evaluation of pt's status upon a dmission and devise an individualized program for Aquatic Therapy, Neuromuscular Reeducation, and Str engthening Achieving independence - to improve, our physical therapists will perform initial evaluation of pt's status upon admission and devise an individualized program for Community Reintegration Activities - Occupational Therapy ADL deficits - to improve, our occupation therapists will perform initial evaluation of pt's status upon admission and devise an individualized program for Bathing, Bed mobility, Community Reintegratio n, Cooking, Dressing, Eating, Fine Motor Skills, Grooming, Homemaking, Kitchen Mobility, Laundry, Pat ient Education, Safety Awareness, Splinting - Positioning, Transfers(Toilet, Tub, Shower), and Wheel Chair Management Need for direct support professional caregiver - to improve, our occupation therapists will perform initial evaluation of pt's status upon admission and devise an individualized program for Caregiver Training Weakness - to improve, our occupation therapists will perform initial evaluation of pt's status upon admission and devise an individualized program for Aquatic Therapy, Balance, Endurance, UE ROM, and UE strengthening - Other See attached MAR (Medication Administration Record) [email or web address].pdf See attached MAR (Medication Administration Record) - Diet Type Continue Regular - Diet - Liquid Texture Continue Thin - Tube Feed Continue N/A - Bladder care per protocol - Weight Bearing Precaution WBAT left LE - Skin care per protocol - Diet - Solid Texture Continue Regular Continue Pureed - Shower allowing shower for Dementia, TBI, Stroke, or others FUNCTIONAL STATUS: UPDATED AT WEEKLY TEAM CONFERENCE - Bladder Same accident frequency: 7-Ind - No accidents in the past 7 days - Bowel Same accident frequency: 7-Ind - No accidents in the past 7 days - Walking Same score based on distance walked: 1(<=50ft) - Wheelchair Same score based on distance traveled: 0(N/A) FUNCTIONAL STATUS: - Self-Care A. Eating modA B. Grooming sup C. Bathing Kiersten D. Dressing - Upper Kiersten E. Dressing - Lower Kiersten F. Toileting modA - Sphincter Control G. Bladder control sup H. Bowel control sup - Transfers Control I. Bed/Chair/Wheelchair modA J. Toilet modA K. Tub/Shower modA - Locomotion L. Walk/Wheelchair (W) modA M. Stairs maxA - Communication N. Comprehension (B) sup O. Expression (B) modA - Social Cognition P. Social Interaction sup Q. Problem Solving sup R. Memory Ind - Endurance Good - Balance Good - Safety Awareness Good QI SCORES: - Self-Care A. Eating 03-Partial/moderate assistance B. Oral hygiene 03-Partial/moderate assistance C. Toileting hygiene 03-Partial/moderate assistance E. Shower/bathe self 03-Partial/moderate assistance F. Upper body dressing 03-Partial/moderate assistance G. Lower body dressing 03-Partial/moderate assistance H. Putting on/taking off footwear 02-Substantial/maximal assistance - Mobility A. Roll left and right 03-Partial/moderate assistance B. Sit to lying 03-Partial/moderate assistance C. Lying to sitting on side of bed 03-Partial/moderate assistance D. Sit to stand 04-Supervision or touching assistance E. Chair/bas-lj-qeflu transfer 04-Supervision or touching assistance F. Toilet transfer 03-Partial/moderate assistance G. Car transfer 88-Not attempted due to medical condition or safety concerns I. Walk 10 feet 04-Supervision or touching assistance J. Walk 50 feet with two turns 88-Not attempted due to medical condition or safety concerns K. Walk 150 feet 88-Not attempted due to medical condition or safety concerns L. Walking 10 feet on uneven surfaces 88-Not attempted due to medical condition or safety concerns M. 1 step (curb) 88-Not attempted due to medical condition or safety concerns N. 4 steps 88-Not attempted due to medical condition or safety concerns O. 12 steps 88-Not attempted due to medical condition or safety concerns P. Picking up object 88-Not attempted due to medical condition or safety concerns R. Wheel 50 feet with two turns 88-Not attempted due to medical condition or safety concerns S. Wheel 150 feet 88-Not attempted due to medical condition or safety concerns - Bladder and Bowel Bladder continence 0-Always continent Bowel continence 0-Always continent - Endurance Fair - Balance Fair - Safety Awareness Fair CURRENT FUNC. DEFICITS: Self-Care, Mobility, Endurance, Balance, and Safety Awareness SIGNATURE PANEL: (INDUSTRIAL ROOFER HELPER)
--- NOTE | 2019-01-24 18:05 | R.DS ---
FACILITY [facility] MR# [id number] NAME GRACIE VALADEZ ADDRESS [address] [facility] [address]IP [address] PHONE DATE OF 1950 AGE 68 SSN# [id number] GENDER Female DEXTERITY Right-handed MARITAL STATUS RACE Black ENCOUNTER PHYSICIAN Dr. Jesse Martinez M.D. REFERRING DOCTOR David Christine REFERRING FACILITY [facility] DISCHARGE DIAGNOSIS: - Stroke 01 - Left Body (Right Brain) (01.1) Acute to subacute infarct Right Lentiform Nucleus and Adjacent Caudate. DISCHARGE COMORBIDITIES: - N/A HTN DM II History of Stroke DATE OF ADMISSION 12/23/2018 14:36 (GAS TENDER) MEDICATION ALLERGIES: No Known Drug Allergies (NKDA) ENVIRONMENTAL ALLERGIES: None Known - Substance Allergies None Known - Other Allergies None Known DISCHARGE MEDICATIONS: Other- ContinueSee attached MAR (Medication Administration Record) [email or web address].pdf. NURSING: - Shower allowing shower - Bladder care per protocol - Skin care per protocol PRECAUTIONS: - Weight Bearing Precaution WBAT left LE ACTIVITIES OOB only with supervision THERAPIES: - Occupational Therapy Cognitive Retraining Visual Perceptual Training - Dietary and Nutrition Adequate Nutrition Nutritional Education Nutritional Supplements - Speech Therapy Cognitive Training Dysphagia Therapy Expressive Language Skills Memory Strategies Receptive Language Skills Speech Intelligibility Training HISTORY OF PRESENT ILLNESS: Pt. is a 68 yo Right-handed black female.On 12/19/2018 Pt. presented to [facility] with sudden on set of left-side weakness.On 12/19/2018 she was admitted to [facility] with diagnosis Acute to julian bacute infarct Right Lentiform Nucleus and Adjacent Caudate.Her impairment category is Stroke 01 - L eft Body (Right Brain) (01.1).Pre-morbidly, Pt. was independent/mod-I in Locomotion, Safety Awareness , Balance, Social Cognition, Transfers Control, Sphincter Control, Self-Care, and Endurance; and she had good Balance, Endurance, Locomotion, Transfers Control, Communication, and Social Cognition.Curre ntly, she has deficits of Locomotion, Safety Awareness, Balance, Transfers Control, Self-Care, and Co mmunication.Pt. is now referred to [facility] for acute in-patient rehabilitat ion in order to maximize patient's functional independence in activities of daily living, strength, R OM, and mobility.- Rehab Goal Patient has realistic goal of being discharged at assistance level 6-Erica to reside at Home with Fam elis/Relatives. Gracie Valadez is a 68 year old female that lives with her sister in a [address] home. She was independent with ADLs and self care. On 12/19/2018, patient had a fall and was found on the ground by her daughter. Patient was feeling some weakness on her left side and stated she was having difficulty moving it but refused to go to the hospital. The next day her symptoms lingered and was admitted to [facility] and treated. She is now medically stable but in need of 24-hour nursing, doctor supervision and oversite while receivi ng active and ongoing intensive (PT, reasonably expected to participate in 3hours of therapy a day/15 hours per week and receive care with an intensive interdisciplinary approach.HOSPITAL COURSE: DIET - LIQUID TEXTURE: On 12/21/2018 Pt was changed to Thin Diet - Liquid Texture. DIET - SOLID TEXTURE: On 12/21/2018 Pt was changed to Pureed Diet - Solid Texture. On 12/23/2018 Pt was changed from Pureed Diet - Solid Texture to Regular. Pt was downgraded from Regular Diet - Solid Texture to Pureed. On 12/25/2018 Pt was changed from Pureed Diet - Solid Texture to Regular. On 12/27/2018 Pt was changed from Pureed Diet - Solid Texture to Regular. On 12/28/2018 Pt was changed from Pureed Diet - Solid Texture to Regular. On 01/01/2019 Pt was changed from Pureed Diet - Solid Texture to Regular. On 01/06/2019 Pt was changed from Pureed Diet - Solid Texture to Regular. On 01/09/2019 Pt was changed from Pureed Diet - Solid Texture to Regular. On 01/11/2019 Pt was changed from Pureed Diet - Solid Texture to Regular. On 01/17/2019 Pt was changed from Pureed Diet - Solid Texture to Regular. DIET TYPE: On 12/21/2018 Pt was upgraded to Regular Diet Type. TUBE FEED: On 12/21/2018 Pt was changed to N/A Tube Feed. WEIGHT BEARING PRECAUTION: On 12/21/2018 the following precautions were added for the patient: Weight Bearing Precaution - WBAT left LE. On 12/23/2018 the following precautions were added for the patient: Weight Bearing Precaution - WBAT left LE. On 12/25/2018 the following precautions were removed for the patient: Weight Bearing Precaution - WB AT left LE. On 12/28/2018 the following precautions were added for the patient: Weight Bearing Precaution - WBAT left LE. DISCHARGE PHYSICAL EXAM - Gen Alert and awake Lying in bed No apparent distress Oriented to: person, time, and place - Skin No skin breakdown. Normacephalic - Eyes No abnormalities - ENMT No abnormalities - Neck No abnormalities - CVS RRR - Chest Clear - Resp No wheezing - Abd + bowel sounds - GI Non distended Deferred - No abnormalities - Ext No significant edema - MSK 3+/5 weakness in left upper and 4+/5 in left lower extremity - Neuro 3+/5 weakness in left upper and 4+/5 in left lower extremity - Psych No abnormalities FUNCTIONAL STATUS: - Self-Care A. Eating 3-modA B. Grooming 5-sup C. Bathing 4-Kiersten D. Dressing - Upper 5-sup E. Dressing - Lower 5-sup F. Toileting 3-modA - Sphincter Control G. Bladder control 5-sup H. Bowel control 5-sup - Transfers Control I. Bed/Chair/Wheelchair 5-sup J. Toilet 5-sup K. Tub/Shower 5-sup - Locomotion L. Walk/Wheelchair (W) 5-sup M. Stairs 5-sup - Communication N. Comprehension (B) 5-sup O. Expression (B) 3-modA - Social Cognition P. Social Interaction 5-sup Q. Problem Solving 5-sup R. Memory 7-Ind - Endurance Good - Balance Good - Safety Awareness Good QI SCORES: - Self-Care A. Eating 03-Partial/moderate assistance B. Oral hygiene 03-Partial/moderate assistance C. Toileting hygiene 03-Partial/moderate assistance E. Shower/bathe self 03-Partial/moderate assistance F. Upper body dressing 03-Partial/moderate assistance G. Lower body dressing 03-Partial/moderate assistance H. Putting on/taking off footwear 02-Substantial/maximal assistance - Mobility A. Roll left and right 03-Partial/moderate assistance B. Sit to lying 03-Partial/moderate assistance C. Lying to sitting on side of bed 03-Partial/moderate assistance D. Sit to stand 04-Supervision or touching assistance E. Chair/dmn-pi-qhokz transfer 04-Supervision or touching assistance F. Toilet transfer 03-Partial/moderate assistance G. Car transfer 88-Not attempted due to medical condition or safety concerns I. Walk 10 feet 04-Supervision or touching assistance J. Walk 50 feet with two turns 88-Not attempted due to medical condition or safety concerns K. Walk 150 feet 88-Not attempted due to medical condition or safety concerns L. Walking 10 feet on uneven surfaces 88-Not attempted due to medical condition or safety concerns M. 1 step (curb) 88-Not attempted due to medical condition or safety concerns N. 4 steps 88-Not attempted due to medical condition or safety concerns O. 12 steps 88-Not attempted due to medical condition or safety concerns P. Picking up object 88-Not attempted due to medical condition or safety concerns R. Wheel 50 feet with two turns 88-Not attempted due to medical condition or safety concerns S. Wheel 150 feet 88-Not attempted due to medical condition or safety concerns - Bladder and Bowel Bladder continence 0-Always continent Bowel continence 0-Always continent - Endurance Fair - Balance Fair - Safety Awareness Fair DISCHARGE INSTRUCTIONS: - N/A Aggrenox twice daily. DISCHARGE PLAN, FOLLOW UP CARE PROVISIONS: - Estimated Length of Stay (days) 17. - Consensus on plan Discharge plan has been discussed with primary caregiver. Patient/Family is in agreement with the ciarra n. Primary caregiver is in agreement with the plan. - Patient/Family Goals Return home with assistance. - Planned Living Setting Upon Discharge Home, to live with Family/Relatives. Transitional Living. SIGNATURE PANEL: (GAS TENDER)
== END 2019-01-17 18:45 | DRG 56 ==
LOC: 5TH 20:18
PROVIDERS: ADMIT Psychiatry & Neurology Neurology with Special Qualifications in Child Neurology; ATTEND Psychiatry & Neurology Neurology with Special Qualifications in Child Neurology
DX: I69.398 Other sequelae of cerebral infarction (principal); J69.0 Pneumonitis due to inhalation of food and vomit; I69.354 Hemiplegia and hemiparesis following cerebral infarction affecting left non-dominant side; I69.391 Dysphagia following cerebral infarction; I10 Essential (primary) hypertension; R13.12 Dysphagia, oropharyngeal phase; R32 Unspecified urinary incontinence; R15.9 Full incontinence of feces; E11.9 Type 2 diabetes mellitus without complications
CPT/HCPCS: 36415; 71045; 74230; 80048; 81001; 82040; 82947; 83735; 84134; 85025; 87086; 87088; 92507; 92523; 92526; 92611; 97110; 97112; 97116; 97127; 97161; 97530; 97542; J7030